=== PATIENT | female | born 1955 | race Caucasian/White ===

== ENCOUNTER 2018-03-15 03:26 | Outpatient (CLI) | payer MEDICARE, SELFPAY ==
[2018-03-15 12:57] LABS: ALT 59 U/L (12-78); AST 38 U/L (15-37); Albumin 3.8 g/dL (3.4-5.0); Alkaline Phosphatase 84 U/L (46-116); Anion Gap 7.8 mmol/L (3-11); BUN 16 mg/dL (7-18); Bilirubin, Total 0.4 mg/dL (0.2-1.0); CO2 30.2 mmol/L (21.0-32.0); CREATININE 0.73 mg/dL (0.55-1.02); Calcium 8.4 mg/dL (8.5-10.1); Chloride 105 mmol/L (98-107); Cholesterol 160 mg/dL (50-200); Glucose 105 mg/dL (70-100); HDL Cholesterol 60 mg/dL (40-60); LDL CHOLESTEROL 88 mg/dL (<100); Magnesium 1.9 mg/dL (1.8-2.4); Potassium 4.2 mmol/L (3.5-5.1); Sodium 143 mmol/L (136-145); Total Protein 6.9 g/dL (6.4-8.2); Triglyceride 114 mg/dL (30-150)
== END 2018-03-15 03:46 ==
PROVIDERS: PCP Family Medicine; Visit Provider Family Medicine
DX: E78.5 Hyperlipidemia, unspecified (principal); E83.42 Hypomagnesemia
CPT/HCPCS: 36415; 80053; 80061; 83721; 83735

== ENCOUNTER 2018-03-23 01:16 | Outpatient (CLI) | payer MEDICARE, SELFPAY ==
--- NOTE | 2018-03-23 14:01 | MERGE_ITS ---
*[facility]* *[facility]* [address] [place] [address] Date of study: 03/23/2018 Transthoracic Echocardiography M-mode, complete 2D, complete spectral Doppler, and color Doppler *STUDY CONCLUSIONS* Summary: 1. Left ventricle: The cavity size was normal. Systolic function was hyperdynamic. The estimated ejection fraction was 65-70%. There was no evidence of elevated ventricular filling pressure by Doppler parameters. 2. Mitral valve: There was mild regurgitation. 3. Right ventricle: The cavity size was normal. Wall thickness was normal. Systolic function was normal. 4. Atrial septum: No defect or patent foramen ovale was identified. 5. Pulmonary arteries: Pulmonary systolic pressure was >= 15mm Hg. 6. Inferior vena cava: Poorly visualized. *PATIENT PRESENTATION* Height: 162.6cm ((64in) ) S/D Pressure: 129 / 76 Weight: 90.3kg ((198.6lb) ) BSA: 2.06m^2 Test start time: 02:05 PM. Test stop time: 03:00 PM. PERFORMING Unknown ORDERING Aurora Mcrae REFERRING Aurora Mcrae PERFORMING [facility] [employer] INST[employer]ER Yara Gardner *PROCEDURE DATA* Procedure information: This study was interpreted by [facility]. Pertinent images and digital data are archived for permanent storage and are available for subsequent review. No prior study was available for comparison. Study status: Routine. Transthoracic echocardiography. M-mode, complete 2D, complete spectral Doppler, and color Doppler. A Transthoracic Echocardiogram was performed. Scanning was performed from the parasternal, apical, subcostal, and suprasternal notch acoustic windows. Images were obtained using an [employer] 2000 cardiac ultrasound machine. Image quality was adequate. Study completion: The patient tolerated the procedure well. History: PMH: Hypertension,Murmur. *CARDIAC ANATOMY* Left ventricle: The cavity size was normal. Systolic function was hyperdynamic. The estimated ejection fraction was 65-70%. Diastolic parameters were normal for age. There was no evidence of elevated ventricular filling pressure by Doppler parameters. Aortic valve: Doppler: There was no stenosis. There was no regurgitation. VTI ratio of LVOT to aortic valve: 0.64. Valve area (VTI): 2.3cm^2. Indexed valve area (VTI): 1.1cm^2/m^2. Peak velocity ratio of LVOT to aortic valve: 0.54. Valve area (Vmax): 2cm^2. Indexed valve area (Vmax): 1cm^2/m^2. Mean velocity ratio of LVOT to aortic valve: 0.49. Valve area (Vmean): 1.8cm^2. Indexed valve area (Vmean): 0.9cm^2/m^2. Mean gradient (S): 8mm Hg. Peak gradient (S): 13.9mm Hg. Aorta: Aortic root: The aortic root was normal in size. Ascending aorta: The ascending aorta was mildly dilated. Mitral valve: Doppler: There was no evidence for stenosis. There was mild regurgitation. Valve area by pressure half-time: 4cm^2. Indexed valve area by pressure half-time: 1.9cm^2/m^2. Peak gradient (D): 2.7mm Hg. Left atrium: The atrium was normal in size. Atrial septum: No defect or patent foramen ovale was identified. Right ventricle: The cavity size was normal. Wall thickness was normal. Systolic function was normal. Pulmonic valve: Doppler: There was no evidence for stenosis. There was no significant regurgitation. Peak gradient (S): 3.3mm Hg. Tricuspid valve: Doppler: There was mild regurgitation. Pulmonary artery: Poorly visualized. Pulmonary systolic pressure was >= 15mm Hg. Right atrium: The atrium was normal in size. Pericardium: There was no pericardial effusion. Systemic veins: Inferior vena cava: Poorly visualized. Measurements Left ventricle Value Reference LV ID, ED, PLAX 4.1 cm 3.5 - 6.0 LV ID, ES, PLAX 2.7 cm 2.1 - 4.0 LV PW thickness, ED, PLAX 1.0 cm LV end-diastolic volume, 1-p A2C 63 ml LV ejection fraction, 1-p A2C 52 % LV end-diastolic volume, 1-p A4C 67 ml LV ejection fraction, 1-p A4C 60 % LV e', lateral 0.075 m/sec LV E/e', lateral 11 LV e', medial 0.05 m/sec LV E/e', medial 17 LV e', average 0.062 m/sec LV E/e', average 13 Ventricular septum Value Reference IVS thickness, ED, PLAX 1.0 cm LVOT Value Reference LVOT ID, A-P 2.1 cm LVOT area 3.6 cm^2 LVOT peak velocity, S 1.01 m/sec LVOT mean velocity, S 0.66 m/sec LVOT VTI, S 23.7 cm LVOT peak gradient, S 4.1 mm Hg LVOT mean gradient, S 2 mm Hg Stroke volume (SV), LVOT DP 86 ml Stroke index (SV/bsa), LVOT DP 42 ml/m^2 Aortic valve Value Reference Aortic valve peak velocity, S 1.9 m/sec Aortic valve mean velocity, S 1.33 m/sec Aortic valve VTI, S 37.0 cm Aortic mean gradient, S 8 mm Hg Aortic peak gradient, S 13.9 mm Hg VTI ratio, LVOT/AV 0.64 Aortic valve area, VTI 2.3 cm^2 Velocity ratio, peak, LVOT/AV 0.54 Aortic valve area, peak velocity 2 cm^2 Velocity ratio, mean, LVOT/AV 0.49 Aortic valve area, mean velocity 1.8 cm^2 Aortic valve area/bsa, mean velocity 0.9 cm^2/m^2 Aorta Value Reference Aortic root ID, ED 2.6 cm Ascending aorta ID, A-P, S 3.6 cm Left atrium Value Reference LA ID, A-P, ES 3.7 cm LA ID/bsa, A-P 1.8 cm/m^2 <=2.2 LA area, ES, A4C 17.4 cm^2 8.8 - 23.4 LA area, ES, A2C 16 cm^2 LA volume/bsa, S 26 ml/m^2 LA volume, ES, 2-p 49 ml LA volume/bsa, ES, 2-p 24 ml/m^2 LA/aortic root ratio 1.41 Mitral valve Value Reference Mitral E-wave peak velocity 0.82 m/sec Mitral A-wave peak velocity 0.87 m/sec Mitral deceleration time 191 ms 150 - 230 Mitral pressure half-time 55 ms Mitral peak gradient, D 2.7 mm Hg Mitral E/A ratio, peak 0.95 Mitral valve area, PHT, DP 4 cm^2 Tricuspid valve Value Reference Tricuspid regurg peak velocity 2.1 m/sec Tricuspid peak RV-RA gradient 17.9 mm Hg Right atrium Value Reference RA area, ES, A4C 17.5 cm^2 8.3 - 19.5 Pulmonic valve Value Reference Pulmonic peak gradient, S 3.3 mm Hg Legend: (L) and (H) ela values outside specified reference range. I have personally reviewed the images and have reviewed and edited the reported findings. Electronically signed by Rodney Brown MD 03/23/2018 16:55
== END 2018-03-23 01:36 ==
PROVIDERS: PCP Family Medicine; Visit Provider Family Medicine
DX: I10 Essential (primary) hypertension (principal); R01.1 Cardiac murmur, unspecified; I34.0 Nonrheumatic mitral (valve) insufficiency
CPT/HCPCS: 93306

== ENCOUNTER 2018-06-02 07:55 | Outpatient (CLI) | payer MEDICARE, SELFPAY ==
--- NOTE | 2018-06-02 12:58 | DI.MAMMO_ITS ---
SYMPTOM/DIAGNOSIS: SCREENING,Z12.31 MAMMOGRAMS: Mammograms were interpreted according to the usual protocol including computer analysis with CAD system, tomosynthesis and C view imaging. Comparison is made with prior examinations. Breast density, category B. No suspicious masses or microcalcifications are seen. There is no definite evidence of malignancy. IMPRESSION: Negative mammogram. Routine screening is recommended. Category 1. MQSA ASSESSMENT OF FINDINGS: Negative. Category 1. Patient will receive a letter notifying them of these results. BI-RADS category B. There are scattered areas of fibroglandular density.
== END 2018-06-02 08:15 ==
PROVIDERS: PCP Family Medicine; Visit Provider Family Medicine
DX: Z12.31 Encounter for screening mammogram for malignant neoplasm of breast (principal)
CPT/HCPCS: 77063; 77067

== ENCOUNTER → 2018-09-11 08:26 | Outpatient (BNVA) | payer MEDICARE, SELFPAY | PROVIDERS: PCP Family Medicine; Visit Provider Nurse Practitioner Adult Health | DX: G31.84 Mild cognitive impairment of uncertain or unknown etiology (principal); I10 Essential (primary) hypertension | CPT/HCPCS: 99204; 99215 ==

== ENCOUNTER 2018-09-14 00:37 | Outpatient (CLI) | payer MEDICARE, SELFPAY ==
--- NOTE | 2018-09-14 09:48 | DI.MRI_ITS ---
SYMPTOMS/DIAGNOSIS: MEMORY PROBLEMS, R41.3, OTHER AMNESIA BRAIN MRI: Sagittal T 2, axial T 2, axial diffusion weighted axial FLAIR and axial GRE and axial T 1 pulse sequences were performed. There are small regions of increased signal in the frontoparietal white matter bilaterally. The findings are consistent with small vessel disease. There is no evidence of a hemorrhage or mass or fluid collection. There is no evidence of a region or regions of restricted diffusion. The normal flow void is noted in the cerebral vessels. SUMMARY: There are findings consistent with small vessel disease. No hemorrhage or mass or evidence of an infarct is demonstrated.
[2018-09-14 12:43] LABS: Vitamin B12 1033 pg/mL (193-986)
== END 2018-09-14 00:57 ==
PROVIDERS: PCP Family Medicine; Visit Provider Nurse Practitioner Adult Health
DX: R41.3 Other amnesia (principal); I67.9 Cerebrovascular disease, unspecified
CPT/HCPCS: 36415; 70551; 82607; 84443

== ENCOUNTER → 2018-11-13 12:37 | Outpatient (BNVA) | payer MEDICARE, SELFPAY | PROVIDERS: PCP Family Medicine; Visit Provider Nurse Practitioner Adult Health | DX: G31.84 Mild cognitive impairment of uncertain or unknown etiology (principal); I10 Essential (primary) hypertension | CPT/HCPCS: 99212; 99213 ==

== ENCOUNTER 2019-03-22 02:25 | Outpatient (CLI) | payer MEDICARE, SELFPAY ==
[2019-03-22 15:08] LABS: ALT 107 U/L (14-59); AST 98 U/L (15-37); Alkaline Phosphatase 103 U/L (46-116); Anion Gap 9.9 mmol/L (3-11); BUN 16 mg/dL (7-18); Bilirubin, Total 0.4 mg/dL (0.2-1.0); CO2 27.1 mmol/L (21.0-32.0); CREATININE 0.71 mg/dL (0.55-1.02); Calcium 9.3 mg/dL (8.5-10.1); Calculated LDL 91 mg/dL; Chloride 105 mmol/L (98-107); Cholesterol 174 mg/dL (50-200); Glucose 122 mg/dL (70-100); HDL Cholesterol 64 mg/dL (40-60); Magnesium 1.8 mg/dL (1.8-2.4); Potassium 4.2 mmol/L (3.5-5.1); Sodium 142 mmol/L (136-145); Total Protein 7.4 g/dL (6.4-8.2); Triglyceride 96 mg/dL (30-150)
== END 2019-03-22 02:45 ==
PROVIDERS: PCP Family Medicine; Visit Provider Family Medicine
DX: E78.5 Hyperlipidemia, unspecified (principal); I10 Essential (primary) hypertension; E83.42 Hypomagnesemia
CPT/HCPCS: 36415; 80053; 80061; 83735

== ENCOUNTER 2019-04-09 00:54 | Outpatient (CLI) | payer MEDICARE, SELFPAY ==
--- NOTE | 2019-04-09 07:10 | DI.US_ITS ---
EXAM: US ABDOMEN CLINICAL HISTORY: hepatic steatosis, malaise, higher transaminasis. TECHNIQUE: Ultrasound performed using standard protocol. COMPARISON: Cardiac from 03/23/2018 FINDINGS: Hepatic parenchyma is mildly echogenic with decreased through transmission consistent with hepatic st eatosis. There are multiple gallstones. No biliary dilatation, no gallbladder wall thickening or pe richolecystic fluid collection. Question lower pole right renal calculus, nonobstructing. Left kidn ey unremarkable in appearance. Abdominal aorta is of normal diameter. Pancreas grossly unremarkable . Spleen unremarkable. IMPRESSION: Cholelithiasis. Nonobstructing left renal lower pole calculus. Hepatic steatosis.
--- NOTE | 2019-04-09 07:10 | DI.RAD_ITS ---
EXAM: XR KNEE RT 3V AP,LAT,FITO INDICATION: RIGHT KNEE PAIN,[id number]. COMPARISON: No exams were available for comparison TECHNIQUE: 2D digital imaging was performed. FINDINGS: Three views were obtained. There is narrowing of the medial tibiofemoral cartilaginous joint space. Minimal marginal osteophyte formation noted at the joints of the knee. 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
== END 2019-04-09 01:14 ==
PROVIDERS: PCP Family Medicine; Visit Provider Family Medicine
DX: M25.561 Pain in right knee (principal); M17.11 Unilateral primary osteoarthritis, right knee; K76.0 Fatty (change of) liver, not elsewhere classified; R53.81 Other malaise; K80.20 Calculus of gallbladder without cholecystitis without obstruction; N20.0 Calculus of kidney; R74.0 Nonspecific elevation of levels of transaminase and lactic acid dehydrogenase [LDH]
CPT/HCPCS: 73562; 76700

== ENCOUNTER → 2019-05-14 09:25 | Outpatient (BNVA) | payer MEDICARE, SELFPAY | PROVIDERS: PCP Family Medicine; Referring Provider Family Medicine; Visit Provider Nurse Practitioner Adult Health | DX: G31.84 Mild cognitive impairment of uncertain or unknown etiology (principal); I10 Essential (primary) hypertension | CPT/HCPCS: 99213 ==

== ENCOUNTER → 2019-05-18 08:39 | Outpatient (BNVA) | payer MEDICARE, SELFPAY | PROVIDERS: PCP Family Medicine; Referring Provider Family Medicine; Visit Provider Student in an Organized Health Care Education/Training Program | DX: M17.11 Unilateral primary osteoarthritis, right knee (principal) | CPT/HCPCS: 20610; 99203; 99214; J1040 ==

== ENCOUNTER 2019-06-05 01:13 | Outpatient (CLI) | payer MEDICARE, SELFPAY ==
--- NOTE | 2019-06-05 11:34 | DI.MAMMO_ITS ---
EXAM: MAMMO SCREENING CLINICAL HISTORY: screening Z12.39 TECHNIQUE: Mammograms were interpreted according to the usual protocol including computer analysis w [employer] CAD system, tomosynthesis and C-view imaging. COMPARISON: [id number] FINDINGS: The breasts are composed of scattered areas of fibroglandular density, breast density category B. Th ere are no suspicious masses or suspicious microcalcifications. There has been no significant interva l change when compared with the prior examinations. IMPRESSION: Category 1, breast density category B.
== END 2019-06-05 01:33 ==
PROVIDERS: PCP Family Medicine; Visit Provider Family Medicine
DX: Z12.31 Encounter for screening mammogram for malignant neoplasm of breast (principal)
CPT/HCPCS: 77063; 77067

== ENCOUNTER → 2019-07-23 13:39 | Outpatient (BNVA) | payer MEDICARE, SELFPAY | PROVIDERS: PCP Family Medicine; Referring Provider Family Medicine; Visit Provider Student in an Organized Health Care Education/Training Program | DX: M17.11 Unilateral primary osteoarthritis, right knee (principal) | CPT/HCPCS: 99213 ==

== ENCOUNTER 2019-07-30 01:40 | Outpatient (CLI) | payer MEDICARE, SELFPAY ==
--- NOTE | 2019-07-30 10:41 | DI.MRI_ITS ---
EXAM: MR LOWER JOINT RT WO CLINICAL HISTORY: PAIN, LOCALIZED OSTEOARTHRITIS OF RT KNEE, M17.11. TECHNIQUE: Multiplanar multisequence MRI was performed. COMPARISON: No exams were available for comparison FINDINGS: Menisci: Lateral meniscus is unremarkable. There is increased signal and decreased size in the body of the medial meniscus. There is increased signal seen in the anterior horn of the medial meniscus. Findings are suspicious for tear and degeneration. Ligaments: The anterior and posterior cruciate ligaments are intact. The lateral collateral ligament is intact. There is increased signal seen around the medial meniscus consistent with a sprain. Extensor mechanism: Intact. The medial and lateral retinaculum are unremarkable. Articular cartilage: There is thinning of the articular cartilage in the medial femoral tibial joint and the patellofemoral joint. Bones: No evidence of an occult fracture or avascular necrosis. Joint: There is a moderate joint effusion. Soft tissues: There is edema seen in the soft tissues around the knee. No evidence of a popliteal cy st. IMPRESSION: 1. Tear involving the anterior horn and body of the medial meniscus. Degenerative changes also seen to be present. 2. MCL sprain. 3. Moderate joint effusion and subcutaneous edema. 4. Degenerative changes in the knee.
[2019-07-30 11:33] LABS: Hemoglobin A1C 5.6 % (3.8-5.6)
[2019-07-30 12:44] LABS: Glucose 103 mg/dL (74-106)
== END 2019-07-30 02:00 ==
PROVIDERS: PCP Family Medicine; Visit Provider Family Medicine
DX: M25.561 Pain in right knee (principal); M25.461 Effusion, right knee; S83.411A Sprain of medial collateral ligament of right knee, initial encounter; S83.241A Other tear of medial meniscus, current injury, right knee, initial encounter; M17.11 Unilateral primary osteoarthritis, right knee; M79.7 Fibromyalgia; E11.65 Type 2 diabetes mellitus with hyperglycemia
CPT/HCPCS: 36415; 73721; 82947; 83036

== ENCOUNTER 2019-08-14 16:05 | Outpatient (CLI) | payer MEDICARE, SELFPAY ==
--- NOTE | 2019-08-14 10:30 | DI.RAD_ITS ---
EXAM: XR STANDING ALIGNMENT AND XR KNEE RIGHT 1 V INDICATION: PREOPERATIVE PLANNING. COMPARISON: XR KNEE RT 1V from 08/14/2019 TECHNIQUE: 2D digital imaging was performed. FINDINGS: There is mild to moderate narrowing of the medial joint spaces of both knees. There is normal alignm ent of the patella on the [employer] view. The right lower extremity measures 85.7 cm. The left lower extremity measures 86.4 cm.
== END 2019-08-14 16:25 ==
PROVIDERS: PCP Family Medicine; Referring Provider Family Medicine; Visit Provider Student in an Organized Health Care Education/Training Program
DX: M21.70 Unequal limb length (acquired), unspecified site; M17.11 Unilateral primary osteoarthritis, right knee
CPT/HCPCS: 99214; 73560; 77073

== ENCOUNTER → 2019-08-28 09:29 | Outpatient (BNVA) | payer MEDICARE, SELFPAY | PROVIDERS: PCP Family Medicine; Referring Provider Family Medicine; Visit Provider Student in an Organized Health Care Education/Training Program | DX: M17.11 Unilateral primary osteoarthritis, right knee (principal) | CPT/HCPCS: 99215 ==

== ENCOUNTER 2019-10-26 12:25 | Emergency (ER) | payer MEDICARE, SELFPAY ==
[2019-10-26] VITALS (26 sets, daily range): BP systolic 130–145; BP diastolic 63–85; PULSE 66–76; RESP 15–24; TEMP 36.9; O2SAT 89–95
--- NOTE | 2019-10-26 12:43 | W.ED.GENAD ---
Discharge Plan Disposition Patient Disposition: HOME Condition: Stable Discharge Details Chief Complaint: CVA/TIA Clinical Impression: Hicks's palsy Primary Care Provider: Aurora Mcrae ED Provider: Lubna Mosqueda Home Meds and New Rx's Prescriptions: New prednisone 20 mg tablet See Rx Instructions .ROUTE .COMPLEX Qty: 18 RF: 0 valacyclovir 1 gram tablet 1,000 mg PO TID 10 Days Qty: 30 RF: 0 Continued omega-3 fatty acids-fish oil [Fish Oil] 300-1,000 mg capsule 1 cap PO BID RF: 0 Benefiber Healthy Shape 5 gram/7.4 gram powder See Rx Instructions PO .COMPLEX RF: 0 boron citrate 3 mg tablet 3 mg PO DAILY RF: 0 acetylcysteine [NAC] 600 mg capsule 1,200 mg PO BID RF: 0 bupropion HCl 300 mg tablet extended release 24 hr 300 mg PO QAM Qty: 30 RF: 3 tramadol 50 mg tablet 50 mg PO BID PRN (Reason: pain) Qty: 20 RF: 0 magnesium oxide 500 mg capsule 1,000 mg PO DAILY Qty: 90 RF: 6 levomefolate calcium [L-Methylfolate] 15 mg tablet 15 mg PO DAILY RF: 0 pregabalin 150 mg capsule 150 mg PO TID Qty: 90 RF: 2 calcium carbonate-vitamin D3 1 EACH tablet 1 tab PO BID RF: 0 aspirin [Ecotrin Low Strength] 81 MG tablet,delayed release (DR/EC) 81 mg PO DAILY RF: 0 cyanocobalamin (vitamin B-12) [Vitamin B-12] 500 MCG tablet 1 tab PO DAILY RF: 0 ascorbic acid (vitamin C) 500 MG tablet 1 tab PO DAILY RF: 0 Multi Complete with Iron 1 EACH tablet 1 tab PO DAILY RF: 0 docusate sodium [Colace] 100 MG capsule 100 mg PO HS RF: 0 loratadine 10 MG tablet 10 mg PO DAILY Qty: 90 RF: 4 triamcinolone acetonide 30 GM ointment 30 gm Topical bid prn Qty: 30 RF: 1 nystatin 60 GM powder 1 bubba Topical BID prn Qty: 60 RF: 11 omeprazole 40 mg capsule,delayed release(DR/EC) 40 mg PO DAILY Qty: 90 RF: 4 propranolol 10 mg tablet 10 mg PO BID Qty: 180 RF: 4 pravastatin 20 mg tablet 20 mg PO DAILY Qty: 90 RF: 4 venlafaxine 75 mg capsule,extended release 24hr 225 mg PO DAILY Qty: 270 RF: 3 risperidone 3 mg tablet 3 mg PO HS Qty: 90 RF: 4 buspirone 30 mg tablet 30 mg PO BID Qty: 180 RF: 4 sucralfate 1 gram tablet 1 g PO BID Qty: 60 RF: 5 celecoxib [Celebrex] 200 mg capsule 200 mg PO BID Qty: 60 RF: 6 dextroamphetamine 10 mg capsule, extended release 10 mg PO DAILY MDD 10 mg Qty: 90 RF: 0 clonazepam 0.5 mg tablet 0.25 mg PO BID PRN (Reason: josué) Qty: 30 RF: 0 Discharge Instructions Instructions: Hicks Palsy (ED) Additional Instructions: Take the steroids and antivirals until finished. Call your primary care doctor's office today or Tuesday to schedule follow-up appointment for reevaluation and for results of your tick and Lyme panel which was drawn today in addition to referral for outpatient sleep study due to your low oxygen level noted today. Your oxygen seemed to decrease when sleeping and increase when up and awake and walking which could be indicative of sleep apnea. Return to the emergency department if you develop any worsening or new concerning symptoms. Discharge Data Discharge Date/Time-TO BE ENTERED AT DEPARTURE: 10/26/19 16:50 Discharge Physician: Lubna Mosqueda Medical Decision Making 1235 -- 64-year-old female with a history of fibromyalgia, GERD, hypertension, hyperlipidemia presents for right-sided facial weakness since 5 PM last night. She has right-sided facial drooping including right forehead. No other focal deficits. Differential diagnosis includes acute CVA, Hicks's palsy, electrolyte abnormality, etc., will send for stat CT head, CTA, screening labs. Will check a tick and Lyme panel. EKG notes a rate of 75, sinus with no acute ST ischemic changes. 1255 --stat CT head negative. CTA head and neck negative. Labs reviewed and unremarkable. Chest x-ray negative. Patient reassessed and she still has right-sided facial paralysis including right forehead. She has no other focal deficits. She has no other acute complaints. She was noted at times while in the ED to have an O2 sat ranging between 89-91 while asleep which increases to 95-96 while awake and talking. A d-dimer was obtained and negative. She had no complaint of chest pain or shortness of breath. She ambulated around the ED with an O2 sat of 95% and no acute complaints. Case was discussed with neurology Dr. Guardado and agrees that presentation does sound similar to Hicks's Palsy and recommends prednisone and antivirals. Patient was given 1 dose of each here as well as prescriptions. She was advised to follow-up with her primary care doctor for further evaluation and for referral for results of tick and Lyme panel and to schedule an outpatient sleep study. Medical Records Medical records reviewed: Yes I reviewed the patient's medical records. Imaging Data Radiologic Study: Radiologist's impression: CT BRAIN AND NECK CTA CLINICAL HISTORY: R facial paralysis, r/o acute cva. TECHNIQUE: Imaging Protocol: Axial CT angiography was performed with multi-slice acquisition and multi-planar and/or 3D reconstructions. CONTRAST MATERIAL: Intravenous: Omnipaque 350 Contrast volume:85 mL COMPARISON: ABD PELVIS WITH CONTRAST from 07/19/2012 FINDINGS: CT Head W/O: Ventricles and Extra axial spaces: Normal in size and morphology for the patient's age. Hemorrhage: None. Cerebral parenchyma: There appear to be subtle areas of decreased attenuation in the white matter consistent with small vessel ischemic disease. Midline shift: None. Brainstem/Cerebellum: Normal. Calvarium: Normal. Visualized Paranasal sinuses/Mastoids: Clear. Soft Tissues: Unremarkable. CTA Brain W: Internal Carotid Arteries: Petrous: Normal. Cavernous: Normal. Cerebral: Normal. Middle Cerebral Arteries: Right: No aneurysm, occlusion or significant stenosis. Left: No aneurysm, occlusion or significant stenosis. Anterior Cerebral Arteries: Right: No aneurysm, occlusion or significant stenosis. Left: No aneurysm, occlusion or significant stenosis. Posterior cerebral Arteries: Right: No aneurysm, occlusion or significant stenosis. Left: No aneurysm, occlusion or significant stenosis. Vertebral Arteries: Right: No aneurysm, occlusion or significant stenosis. Left: No aneurysm, occlusion or significant stenosis. Basilar Artery: No aneurysm, occlusion or significant stenosis. CTA Neck W: Common Carotid: Right: No aneurysm, occlusion or significant stenosis. Left: No aneurysm, occlusion or significant stenosis. External Carotid: Right: No aneurysm, occlusion or significant stenosis. Left: No aneurysm, occlusion or significant stenosis. Internal Carotid: Right: No aneurysm, occlusion or significant stenosis. Left: No aneurysm, occlusion or significant stenosis. Vertebral Artery: Right: No aneurysm, occlusion or significant stenosis. Left: No aneurysm, occlusion or significant stenosis. Lung Apices: No focal consolidating infiltrates. Bones: Degenerative changes. Soft Tissues: Normal. IMPRESSION: 1. Normal CTA examination of the [place]. 2. No acute intracranial process. 3. Normal CTA examination of the neck. 4. The findings were discussed with the Emergency Department on the date of the examination. Lab Data Lab results reviewed: Yes I reviewed the patient's lab results. Labs: Laboratory Tests Range/Units 10/26/19 10/26/19 10/26/19 12:38 12:38 12:38 WBC (4.4-10.8) k/cumm 6.09 RBC (4.00-5.20) m/cumm 4.86 Hgb (12.0-15.5) g/dL 14.0 Hct (36.0-46.0) % 42.8 MCV (80-95) fL 88.1 MCH (27.0-33.0) pg 28.8 MCHC (32.0-36.0) g/dL 32.7 RDW (11.7-14.6) % 13.6 Plt Count (130-400) x1000/uL 197 MPV (8.0-11.0) fL 10.2 Immature Gran % % 0.2 Neutrophils % 70.7 Lymphocytes % 20.5 Monocytes % 7.6 Eosinophils % 0.8 Basophils % 0.2 Absolute Neutrophils (1.2-6.7) k/cumm 4.31 Absolute Lymphocytes (1.2-3.4) k/cumm 1.25 Absolute Monocytes (0.11-0.7) k/cumm 0.46 Absolute Eosinophils (0.0-0.7) k/cumm 0.05 Absolute Basophils (0.0-0.2) k/cumm 0.01 PT (9.3-11.0) sec 11.3 H INR (0.9-1.1) 1.1 APTT (21.0-31.4) sec 27.9 Sodium (136-145) mmol/L 139 Potassium (3.5-5.1) mmol/L 4.1 Chloride (98-107) mmol/L 102 Carbon Dioxide (21.0-32.0) mmol/L 29.2 Anion Gap (3-11) mmol/L 7.8 BUN (7-18) mg/dL 18 Creatinine (0.55-1.02) mg/dL 0.77 Estimated GFR/1.73 m2 (mL/min/1.73m2) >= 60.00 Glucose (74-106) mg/dL 104 Calcium (8.5-10.1) mg/dL 9.2 Magnesium (1.8-2.4) mg/dL 2.0 Total Bilirubin (0.2-1.0) mg/dL 0.6 AST (15-37) U/L 37 ALT (14-59) U/L 52 Alkaline Phosphatase (46-116) U/L 91 Troponin I (<0.06) ng/Ml < 0.05 Total Protein (6.4-8.2) g/dL 7.8 Albumin (3.4-5.0) g/dL 4.1 ECG Data Attestation: I personally reviewed and interpreted this ECG (s) as follows: Interpretation: Rate of 75, sinus, no acute st elevation or depression. GA 176. QTc 430. QRS 100. HPI General Mode of arrival: ambulatory. Date/Time Provider Initiated Documentation: 10/26/19 12:25. Limitations to Documentation: no limitations. Information obtained by: patient. HPI Narrative: Patient is a 64-year-old female with a history of anxiety, depression, fibromyalgia, GERD, hypertension and multiple personality disorder who presents for right-sided facial weakness since 5 PM last night. Patient states symptoms started in her right eye with eyelid drooping and tearing. She then developed right facial weakness. She states she has chronic headaches for years and states she has had intermittent headaches over the last month. States her headache is on the top of her head and is currently 2/10. She denies any visual changes, dizziness, chest pain, shortness of breath, extremity weakness or numbness. She denies any fever, cough, recent travel or exposure to COVID. Related Data Home Medications Medication Instructions Recorded Confirmed Multi Complete with Iron 1 tab PO DAILY tab-cap 09/03/12 10/26/19 ascorbic acid (vitamin C) 1 tab PO DAILY 09/03/12 10/26/19 aspirin [Ecotrin Low Strength] 81 mg PO DAILY tab-cap 09/03/12 10/26/19 calcium carbonate-vitamin D3 1 tab PO BID 09/03/12 10/26/19 cyanocobalamin (vitamin B-12) 1 tab PO DAILY 09/03/12 10/26/19 [Vitamin B-12] docusate sodium [Colace] 100 mg PO HS tab-cap 10/19/12 10/26/19 loratadine 10 mg PO DAILY #90 tab-cap 12/02/12 10/26/19 triamcinolone acetonide 30 gm TOPICAL bid prn #30 gm 05/17/14 10/26/19 nystatin 1 bubba TOPICAL BID prn #60 gm 09/21/14 10/26/19 omega-3 fatty acids-fish oil 300 1 cap PO BID 03/22/18 10/26/19 mg-1,000 mg capsule wheat dextrin 5 gram/7.4 gram oral See Rx Instructions PO .COMPLEX gm 07/13/18 10/26/19 powder omeprazole 40 mg capsule,delayed 40 mg PO DAILY #90 tab-cap 01/30/19 10/26/19 release propranolol 10 mg tablet 10 mg PO BID #180 tab-cap 03/15/19 10/26/19 levomefolate calcium 15 mg tablet 15 mg PO DAILY 04/05/19 08/28/19 pravastatin 20 mg tablet 20 mg PO DAILY #90 tab-cap 04/26/19 10/26/19 venlafaxine 75 mg capsule,extended 225 mg PO DAILY #270 tab-cap 05/07/19 10/26/19 release 24 hr acetylcysteine 600 mg capsule 1,200 mg PO BID cap 05/14/19 10/26/19 boron citrate 3 mg tablet 3 mg PO DAILY tab 05/14/19 08/28/19 risperidone 3 mg tablet 3 mg PO HS #90 tab-cap 05/21/19 10/26/19 buspirone 30 mg tablet 30 mg PO BID #180 tab 05/28/19 10/26/19 sucralfate 1 gram tablet 1 g PO BID #60 tab-cap 05/31/19 10/26/19 celecoxib 200 mg capsule 200 mg PO BID #60 cap 07/24/19 10/26/19 pregabalin 150 mg capsule 150 mg PO TID #90 cap 08/09/19 10/26/19 dextroamphetamine 10 mg 10 mg PO DAILY #90 cap MDD 10 mg 10/11/19 10/26/19 capsule,extended release bupropion HCl 300 mg 24 hr tablet, 300 mg PO QAM #30 tab 10/17/19 10/26/19 extended release magnesium oxide 500 mg capsule 1,000 mg PO DAILY #90 cap 10/17/19 10/26/19 tramadol 50 mg tablet 50 mg PO BID PRN #20 tab 10/17/19 10/26/19 clonazepam 0.5 mg tablet 0.25 mg PO BID PRN #30 tab 10/19/19 10/26/19 prednisone See Rx Instructions .ROUTE 10/26/19 .COMPLEX #18 tab valacyclovir 1,000 mg PO TID 10 Days #30 tab 10/26/19 Previous Rx's Medication Instructions Recorded omeprazole 40 mg capsule,delayed 40 mg PO DAILY #90 tab-cap 01/30/19 release propranolol 10 mg tablet 10 mg PO BID #180 tab-cap 03/15/19 pravastatin 20 mg tablet 20 mg PO DAILY #90 tab-cap 04/26/19 venlafaxine 75 mg capsule,extended 225 mg PO DAILY #270 tab-cap 05/07/19 release 24 hr risperidone 3 mg tablet 3 mg PO HS #90 tab-cap 05/21/19 buspirone 30 mg tablet 30 mg PO BID #180 tab 05/28/19 sucralfate 1 gram tablet 1 g PO BID #60 tab-cap 05/31/19 celecoxib 200 mg capsule 200 mg PO BID #60 cap 07/24/19 pregabalin 150 mg capsule 150 mg PO TID #90 cap 08/09/19 dextroamphetamine 10 mg 10 mg PO DAILY #90 cap MDD 10 mg 10/11/19 capsule,extended release bupropion HCl 300 mg 24 hr tablet, 300 mg PO QAM #30 tab 10/17/19 extended release magnesium oxide 500 mg capsule 1,000 mg PO DAILY #90 cap 10/17/19 tramadol 50 mg tablet 50 mg PO BID PRN #20 tab 10/17/19 clonazepam 0.5 mg tablet 0.25 mg PO BID PRN #30 tab 10/19/19 prednisone See Rx Instructions .ROUTE 10/26/19 .COMPLEX #18 tab valacyclovir 1,000 mg PO TID 10 Days #30 tab 10/26/19 Allergies Allergy/AdvReac Type Severity Reaction Status Date / Time nabumetone Allergy Intermediate Verified 10/26/19 13:20 atorvastatin AdvReac Severe Exacerbated Verified 10/26/19 13:20 fibromyalgia pain oxycodone AdvReac Severe H/A Verified 10/26/19 13:20 FLUSHING General Stated Complaint: CVA/TIA ROSALIE: 2 Review of Systems All systems reviewed & are unremarkable except as noted in HPI and below Constitutional Constitutional: Reports as per HPI, Denies chills, Denies fever(s) and Reports headache(s) Eyes Eyes: Denies blurry vision ENT Ears, Nose, Mouth, and Throat: Denies dizziness, Reports headache(s), Denies sore throat and Denies throat swelling Cardiovascular Cardiovascular: Denies chest pain and Denies dyspnea Respiratory Respiratory: Denies cough and Denies dyspnea Gastrointestinal Gastrointestinal: Denies abdominal pain, Denies diarrhea and Denies vomiting Genitourinary Genitourinary: Denies hematuria and Denies dysuria Musculoskeletal Musculoskeletal: Denies back pain and Denies numbness Integumentary/Breasts Skin/Breast: Denies lesions and Denies rash Neurologic Neurologic: Denies dizziness, Reports headache(s), Reports localized weakness and Denies numbness Allergic/Immunologic Allergic/Immunologic: Denies throat swelling COUNTS INCLUDE 234 BEDS AT THE [facility] Social History Smoking/Tobacco Use Status: Never Alcohol Intake: never Drug use: Never Substance use type: does not use Caregiver/Support person: No Household members: spouse Housing: house Communication Needs: Corrective Lenses Do you need help understanding health information?: Rarely current occupation: HOUSEWIFE Pets and animals: Yes Pets and animals: dog(s) Sexually active: No Do you think of yourself as: straight/heterosexual Current gender identity: female What is your relationship status?: How often do you talk on the phone with friends or family?: twice per week How often do you get together with friends or relatives?: once per week How often do you attend worship or denominational services?: decline to answer Do you belong to any clubs or organized social groups?: no Panel score (0-1 are the most socially isolated patients): 2 What type of physical activity do you participate in: none Duration: 15-30 minutes/day Frequency: 3-4 times per week Steph/Quaker: Confucianist Special steph needs: No Seatbelt use: always Drive intox or ride w/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 Firearms in home: Yes Do you feel safe at home: Yes Do you feel safe in your relationship?: Yes Exam Const General: cooperative and no acute distress Orientation: alert, awake and oriented x3 HENMT Head: normal to inspection Ears: hearing grossly normal bilaterally, external ears normal and TM's normal bilaterally General nose exam: external nose normal Face and sinus: normal facial exam Mouth: oral mucosae normal Teeth and gingiva: dentition normal Throat: posterior oropharynx normal Eyes General: appearance normal, both eyes and all related structures Eyelids: eyelids normal Pupils: PERRL EOM: EOM intact bilaterally Neck Neck: normal visual inspection Lymphatic: no lymphadenopathy noted Chest Chest: normal inspection of the chest Resp Effort & Inspection: normal respiratory effort and able to speak in complete sentences Auscultation: clear to auscultation bilaterally Cardio Rate: regular rate Rhythm: regular rhythm GI Inspection: normal to inspection Palpation: soft, not firm, no guarding, no hepatosplenomegaly, no masses and nontender Auscultation: normal bowel sounds Skin General skin exam: no rashes or lesions noted Neuro General: patient alert and patient awake Cognition: normal cognition Speech: speech normal Gait: normal gait Motor: muscle tone normal throughout Sensory Exam: no sensory deficits noted Extrem General: normal to inspection, full ROM and capillary refill normal Psych Appearance: grossly normal Mental Status: mental status grossly normal Speech and Movement: speech and movement normal Affect: normal affect Thought Process: normal Course Vital Signs Vital signs: Vital Signs Temperature 98.4 F 10/26/19 12:31 Pulse 76 10/26/19 12:31 Respiratory Rate 18 10/26/19 12:31 Blood Pressure 138/63 10/26/19 12:31 Pulse Oximetry 92 L 10/26/19 12:31 Temperature 98.4 F 10/26/19 12:31 Temperature Source Temporal Artery Scan 10/26/19 12:31 Pulse 76 10/26/19 12:31 Respiratory Rate 18 10/26/19 12:31 Blood Pressure 138/63 10/26/19 12:31 Blood Pressure Position Supine 10/26/19 12:31 Pulse Oximetry 92 L 10/26/19 12:31 Oxygen Delivery Method Room Air 10/26/19 12:31 Oxygen Flow Rate 0 10/26/19 12:31 Pain Level 8 05/01/20 12:31 Critical Care Time Critical Care Time Critical Care Time: Yes Total Critical Care Time: 30 Attestation: I spent 30 minutes of critical care time with this patient. This does not include time spent on separately reported billable procedures.
--- NOTE | 2019-10-26 12:45 | DI.CT_ITS ---
EXAM: CT BRAIN AND NECK CTA CLINICAL HISTORY: R facial paralysis, r/o acute cva. TECHNIQUE: Imaging Protocol: Axial CT angiography was performed with multi-slice acquisition and mu lti-planar and/or 3D reconstructions. CONTRAST MATERIAL: Intravenous: Omnipaque 350 Contrast volume:85 mL COMPARISON: ABD PELVIS WITH CONTRAST from 07/19/2012 FINDINGS: CT Head W/O: Ventricles and Extra axial spaces: Normal in size and morphology for the patient's age. Hemorrhage: None. Cerebral parenchyma: There appear to be subtle areas of decreased attenuation in the white matter con sistent with small vessel ischemic disease. Midline shift: None. Brainstem/Cerebellum: Normal. Calvarium: Normal. Visualized Paranasal sinuses/Mastoids: Clear. Soft Tissues: Unremarkable. CTA Brain W: Internal Carotid Arteries: Petrous: Normal. Cavernous: Normal. Cerebral: Normal. Middle Cerebral Arteries: Right: No aneurysm, occlusion or significant stenosis. Left: No aneurysm, occlusion or significant stenosis. Anterior Cerebral Arteries: Right: No aneurysm, occlusion or significant stenosis. Left: No aneurysm, occlusion or significant stenosis. Posterior cerebral Arteries: Right: No aneurysm, occlusion or significant stenosis. Left: No aneurysm, occlusion or significant stenosis. Vertebral Arteries: Right: No aneurysm, occlusion or significant stenosis. Left: No aneurysm, occlusion or significant stenosis. Basilar Artery: No aneurysm, occlusion or significant stenosis. CTA Neck W: Common Carotid: Right: No aneurysm, occlusion or significant stenosis. Left: No aneurysm, occlusion or significant stenosis. External Carotid: Right: No aneurysm, occlusion or significant stenosis. Left: No aneurysm, occlusion or significant stenosis. Internal Carotid: Right: No aneurysm, occlusion or significant stenosis. Left: No aneurysm, occlusion or significant stenosis. Vertebral Artery: Right: No aneurysm, occlusion or significant stenosis. Left: No aneurysm, occlusion or significant stenosis. Lung Apices: No focal consolidating infiltrates. Bones: Degenerative changes. Soft Tissues: Normal. IMPRESSION: 1. Normal CTA examination of the [place]. 2. No acute intracranial process. 3. Normal CTA examination of the neck. 4. The findings were discussed with the Emergency Department on the date of the examination. RADIATION DOSE DELIVERED: Total DLP DATA REPOSITORY: All CT scans at this facility are submitted to the National Radiology Data Registry (NRDR) Dose Index Registry (DIR) with the [employer] (A[employer]). RADIATION OPTIMIZATION: All CT scans at this facility use at least one of these dose optimization te chniques: automated exposure control; mA and/or kV adjustment per patient size (includes targeted exa ms where dose is matched to clinical indication); or iterative reconstruction.
[2019-10-26 12:53] LABS: Abs Immature Grans 0.01 k/cumm (0.0-0.09); Absolute Basophil Count 0.01 k/cumm (0.0-0.2); Absolute Eosinophil Count 0.05 k/cumm (0.0-0.7); Absolute Lymphocyte Count 1.25 k/cumm (1.2-3.4); Absolute Monocyte Count 0.46 k/cumm (0.11-0.7); Absolute Neutrophil Count 4.31 k/cumm (1.2-6.7); Basophils % 0.2; Eosinophils % 0.8; HCT 42.8 % (36.0-46.0); Immature Grans % 0.2 %; Lymphocytes % 20.5; Mean Corp. HGB Concentration 32.7 g/dL (32.0-36.0); Mean Corpuscular Hemoglobin 28.8 pg (27.0-33.0); Mean Corpuscular Volume 88.1 fL (80-95); Mean Platelet Volume 10.2 fL (8.0-11.0); Monocytes % 7.6; Neutrophils % 70.7; Platelet Count 197 x1000/uL (130-400); RBC 4.86 m/cumm (4.00-5.20); RBC Distribution Width 13.6 % (11.7-14.6); White Blood Cell Count 6.09 k/cumm (4.4-10.8)
[2019-10-26 13:05] LABS: INR 1.1 (0.9-1.1); PTT Activated 27.9 sec (21.0-31.4); Prothrombin Time 11.3 sec (9.3-11.0)
[2019-10-26 13:07] LABS: ALT 52 U/L (14-59); AST 37 U/L (15-37); Albumin 4.1 g/dL (3.4-5.0); Alkaline Phosphatase 91 U/L (46-116); Anion Gap 7.8 mmol/L (3-11); BUN 18 mg/dL (7-18); Bilirubin, Total 0.6 mg/dL (0.2-1.0); CO2 29.2 mmol/L (21.0-32.0); CREATININE 0.77 mg/dL (0.55-1.02); Calcium 9.2 mg/dL (8.5-10.1); Chloride 102 mmol/L (98-107); Glucose 104 mg/dL (74-106); Potassium 4.1 mmol/L (3.5-5.1); Sodium 139 mmol/L (136-145); Total Protein 7.8 g/dL (6.4-8.2)
[2019-10-26 13:08] LABS: Troponin I < 0.05 ng/Ml (<0.06)
--- NOTE | 2019-10-26 14:25 | DI.RAD_ITS ---
EXAM: XR CHEST 2V PA LATERAL CLINICAL HISTORY: R facial paralysis, r/o cva TECHNIQUE: 2D digital imaging was performed. COMPARISON: RIGHT RIBS TO INCLUDE CXR from 12/18/2013 FINDINGS: MEDIASTINUM: Normal. HEART: Normal. PULMONARY VASCULATURE: Normal. LUNGS: Clear. PLEURAL SPACE: No pleural effusion or pneumothorax. BONE:Degenerative changes are present. There is also a stable S type scoliotic curvature of the thor acic spine. OTHER FINDINGS:Normal. IMPRESSION: No acute pulmonary findings. DATA REPOSITORY: RADIATION DOSE DELIVERED:
[2019-10-26] MEDS: Omnipaque 350 MG/ML 100 ML BTL IJ (14:36)
[2019-10-26] MEDS: Normal Saline - Diluent 50 ML VIAL IV (14:36)
[2019-10-26 16:02] LABS: D-Dimer 456 ng/mlFEU (<500)
[2019-10-26] MEDS: predniSONE 20 MG TAB 60 MG PO (16:12)
[2019-10-26] MEDS: valACYclovir 500 MG TAB 1000 MG PO (16:26)
--- NOTE | 2019-10-27 10:46 | NUR.NOTE ---
Nursing Note: Patient called stating that her bupripiron was increased from 150 to 300 daily. Could this have caused the problem? Per Dr Mosqueda no this did not cause the problem. Patient stated she understood. Melissa Awan.
[2019-10-29 18:56] LABS: Anaplasma phagocytophilum Negative (Negative); B. miyamotoi PCR Negative (Negative); Babesia divergens/MO-1 Negative (Negative); Babesia duncani Negative (Negative); Babesia microti Negative (Negative); Ehrlichia chaffeensis Negative (Negative); Ehrlichia ewingii/canis Negative (Negative); Ehrlichia muris eauclairensis Negative (Negative)
[2019-10-30 12:06] LABS: Lyme Ab w Rflx to Lyme Confirm Positive (Negative)
--- NOTE | 2019-10-31 08:35 | ED.FU.B_ITS ---
Patient seen here last week and diagnosed with Hicks's palsy. Tick and Lyme panel resulted today and Lyme disease antibody positive. Patient was called at home and she still has R sided facial drooping. A prescription for doxycycline 100 mg p.o. twice daily x28 days called into [facility] in [place]. Patient states she has an appointment with Dr. Mcrae today at 3 PM. Case was discussed with Dr. Mcrae. Specific IgM/IgG antibody titers pending. She will follow up on them. She agrees with plan for treatment with doxycycline at this time.
[2019-11-02 16:01] LABS: IgG Immunoblot Negative (Negative); IgM Immunoblot Negative (Negative)
== END 2019-10-26 16:50 | disposition home or self-care (01) ==
PROVIDERS: Emergency Provider Physician Assistant; PCP Family Medicine
DX: G51.0 Bell's palsy (principal); R51 Headache; I10 Essential (primary) hypertension
CPT/HCPCS: 36415; 36416; 70496; 70498; 80053; 82962; 86617; 87798; 93005; 99285; 71046; 83735; 84484; 85025; 85379; 85610; 85730; 86618; 93010; 99284; J3490; J7512

== ENCOUNTER 2019-11-13 03:08 | Outpatient (CLI) | payer MEDICARE, SELFPAY ==
[2019-11-13 11:39] LABS: Hemoglobin A1C 5.8 % (3.8-5.6)
[2019-11-13 11:40] LABS: ALT 46 U/L (14-59); AST 32 U/L (15-37); Alkaline Phosphatase 83 U/L (46-116); Anion Gap 6.7 mmol/L (3-11); BUN 23 mg/dL (7-18); Bilirubin, Total 0.4 mg/dL (0.2-1.0); CO2 31.3 mmol/L (21.0-32.0); CREATININE 0.96 mg/dL (0.55-1.02); Calcium 9.5 mg/dL (8.5-10.1); Chloride 102 mmol/L (98-107); Estimated GFR 58.15 (mL/min/1.73m2); Glucose 103 mg/dL (74-106); Magnesium 2.1 mg/dL (1.8-2.4); Potassium 4.1 mmol/L (3.5-5.1); Sodium 140 mmol/L (136-145)
[2019-11-14 14:43] LABS: Lyme Ab w Rflx to Lyme Confirm Positive (Negative)
[2019-11-16 13:55] LABS: IgG Immunoblot Negative (Negative); IgM Immunoblot Negative (Negative)
== END 2019-11-13 03:28 ==
PROVIDERS: PCP Family Medicine; Visit Provider Family Medicine
DX: E83.42 Hypomagnesemia (principal); R73.9 Hyperglycemia, unspecified; R76.8 Other specified abnormal immunological findings in serum; R74.0 Nonspecific elevation of levels of transaminase and lactic acid dehydrogenase [LDH]
CPT/HCPCS: 36415; 80053; 86617; 83036; 83735; 86618

== ENCOUNTER → 2020-01-01 09:36 | Outpatient (BNVA) | payer MEDICARE, SELFPAY | PROVIDERS: PCP Family Medicine; Referring Provider Family Medicine; Visit Provider Student in an Organized Health Care Education/Training Program | DX: M17.11 Unilateral primary osteoarthritis, right knee (principal); G31.84 Mild cognitive impairment of uncertain or unknown etiology; R53.83 Other fatigue; F32.9 Major depressive disorder, single episode, unspecified; M79.7 Fibromyalgia | CPT/HCPCS: 99214 ==

== ENCOUNTER → 2020-02-05 10:41 | Outpatient (BNVA) | payer MEDICARE, SELFPAY | PROVIDERS: PCP Family Medicine; Visit Provider Student in an Organized Health Care Education/Training Program | DX: M17.11 Unilateral primary osteoarthritis, right knee; Z11.59 Encounter for screening for other viral diseases | CPT/HCPCS: 99214 ==

== ENCOUNTER → 2020-02-11 08:46 | Outpatient (BNVA) | payer MEDICARE, SELFPAY | PROVIDERS: PCP Family Medicine; Referring Provider Family Medicine; Visit Provider Nurse Practitioner Adult Health | DX: G31.84 Mild cognitive impairment of uncertain or unknown etiology (principal) | CPT/HCPCS: 99213 ==

== ENCOUNTER → 2020-03-24 13:06 | Outpatient (BNVA) | payer MEDICARE, SELFPAY | PROVIDERS: PCP Family Medicine; Referring Provider Family Medicine; Visit Provider Student in an Organized Health Care Education/Training Program | DX: Z01.818 Encounter for other preprocedural examination (principal); M17.11 Unilateral primary osteoarthritis, right knee; R94.5 Abnormal results of liver function studies ==

== ENCOUNTER 2020-04-11 01:47 | Outpatient (CLI) | payer MEDICARE, SELFPAY ==
[2020-04-11 10:43] LABS: HCT 43.3 % (36.0-46.0); HGB 13.7 g/dL (11.2-15.7); MCH 28.2 pg (27.0-33.0); MCHC 31.6 % (32.0-36.0); MCV 89.1 fL (80-95); MPV 10.4 fL (8.0-11.0); Platelet Count 206 10^3/uL (130-400); RBC 4.86 10^6/uL (3.93-5.22); RDW 13.2 % (11.7-14.6); RDW-SD 43.7 fL; WBC 5.35 10^3/uL (4.4-10.8)
[2020-04-11 11:56] LABS: BUN 17 mg/dL (7-18); CREATININE 0.77 mg/dL (0.55-1.02); Calcium 9.6 mg/dL (8.5-10.1); Chloride 103 mmol/L (98-107); Glucose 101 mg/dL (74-106); Potassium 4.4 mmol/L (3.5-5.1); Sodium 142 mmol/L (136-145)
== END 2020-04-11 02:07 ==
PROVIDERS: PCP Family Medicine; Visit Provider Student in an Organized Health Care Education/Training Program
DX: R94.5 Abnormal results of liver function studies (principal); M25.561 Pain in right knee; M17.11 Unilateral primary osteoarthritis, right knee
CPT/HCPCS: 36415; 80048; 85027

== ENCOUNTER 2020-04-11 08:24 | Outpatient (CLI) | payer MEDICARE, SELFPAY ==
[2020-04-12 14:59] LABS: COVID-19 RT-PCR Result NEGATIVE (Negative)
== END 2020-04-11 08:44 ==
PROVIDERS: PCP Family Medicine; Visit Provider Student in an Organized Health Care Education/Training Program
DX: M17.11 Unilateral primary osteoarthritis, right knee (principal); Z11.59 Encounter for screening for other viral diseases; Z01.818 Encounter for other preprocedural examination; R94.5 Abnormal results of liver function studies; M25.561 Pain in right knee
CPT/HCPCS: 36415; 80048; 85027; U0003

== ENCOUNTER → 2020-04-15 08:13 | Outpatient (BNVA) | payer MEDICARE, SELFPAY | PROVIDERS: PCP Family Medicine; Referring Provider Family Medicine; Visit Provider Student in an Organized Health Care Education/Training Program | DX: R69 Illness, unspecified (principal) ==

== ENCOUNTER 2020-04-15 09:16 | Observation (INO) | payer MEDICARE, SELFPAY ==
[2020-04-15] VITALS (11 sets, daily range): BP systolic 101–139; BP diastolic 56–78; PULSE 61–77; RESP 14–18; TEMP 35.9–36.7; O2SAT 90–100
[2020-04-15] MEDS: Acetaminophen 500 MG TAB 1000 MG PO ×2 (10:31→20:41)
[2020-04-15] MEDS: Gabapentin 300 MG CAP PO ×2 (10:31→21:55)
[2020-04-15] MEDS: Celecoxib 200 MG CAP 400 MG PO (10:31)
[2020-04-15] MEDS: Lactated Ringers 1,000 ML 80 ML IV ×2 (10:45→16:28)
[2020-04-15] MEDS: ceFAZolin 2 GM/50 ML BAG IVPB (13:40)
[2020-04-15] MEDS: Bupivacaine 0.25% Pres-Free 30 ML VIAL (14:34)
[2020-04-15] MEDS: Normal Saline 20 ML VIAL (14:34)
[2020-04-15] MEDS: Ketorolac 30 MG/ML VIAL (14:34)
--- NOTE | 2020-04-15 16:20 | PT.INIE ---
Date of service: 04/15/20 Time of Service: 16:20 PT Notes Visit Reasons: R KNEE TOTAL Physical Therapy Inpatient Initial Evaluation Date: 04/15/2020 Referring Doctor: JOSH Campo PT Orders: PT CONSULT: Status post ankle surgery Precautions: Fall. Standard. WBAT on the right LE. Patient Profile/Admitting Diagnosis: Sai is a 64-year-old female with localized osteoarthritis of the right knee and is status post right total knee arthroplasty on postoperative day 0. PMHX: Medical History (Updated 03/24/20 @ 14:08 by Miriam Houston) Anxiety Depression Endometrial cancer Fibromyalgia GERD (gastroesophageal reflux disease) Mild cognitive impairment Multiple personality disorder Surgical History Colonoscopy - MAC (11/14/17) Hysterectomy, Laproscopic (~09/2011) TOTAL Rotator Cuff Repair (08/06/09) DR. LYNCH Social History/Home Situation: Lives with in a private home with 2 steps to enter with rails. Dependent with all aspects of ADLs prior to surgery. Equipment Owned/DME: Front wheel walker, single-point cane Subjective: Reports being drowsy and weak but is agreeable to PT consult. Denies headache and chest pain. Reported mild lightheadedness during mobility assessment. Reported no significant pain but mild achiness through the right thigh and hip. Objective: General Observation: Supine in bed. Cryo/Cuff on right knee. TEDS on the left leg. IV in the right knee. Joel wraps over right LE. Mental Status: Patient appears to be but is coherent and responds appropriately to instructions. Oriented x4. Pain: 1/10 in the right thigh and hip Vital Signs: Within normal limits as taken by nurse Padilla immediately prior to PT visit ROM: Right Upper Extremity: Shoulder Flexion WFL. Shoulder abduction WFL. Elbow flexion WFL. Wrist flexion WFL. Opening and closing of hand WFL. Left Upper Extremity: Shoulder Flexion WFL. Shoulder abduction WFL. Elbow flexion WFL. Wrist flexion WFL. Opening and closing of hand WFL. Right Lower Extremity: Hip flexion WFL. Hip abduction WFL. Knee flexion 20 to 90 degrees. Knee extension -20 degrees with empty end feel. Ankle dorsiflexion WFL. Ankle plantarflexion WFL. Left Lower Extremity: Hip flexion WFL. Hip abduction WFL. Knee flexion WFL. Ankle dorsiflexion WFL. Ankle plantarflexion WFL. Strength: Right Upper Extremity: Shoulder flexors 5/5. Shoulder abductors 5/5. Elbow flexors 5/5. Elbow extensors 5/5. Grades 1 Through 5 Teacher strong. Left Upper Extremity: Shoulder flexors 5/5. Shoulder abductors 5/5. Elbow flexors 5/5. Elbow extensors 5/5. Grades 1 Through 5 Teacher strong. Right Lower Extremity: Hip flexors 4/5. Hip abductors 4/5. Knee flexors 3-/5. Knee extensors 3#-/5. Ankle dorsiflexors 4/5. Ankle plantarflexors 4/5. Left Lower Extremity:Hip flexors 5/5. Hip abductors 5/5. Knee flexors 5/5. Knee extensors 5/5. Ankle dorsiflexors 5/5. Ankle plantarflexors 5/5. Sensation: Intact as to pain and pressure on bilateral lower extremities. Bed Mobility/Transfers: Contact-guard assist Supine to sit contact-guard assist Sit to stand contact-guard assist Stand to sit standby assist Bed to chair contact-guard assist Gait: 100 feet of level surface ambulation using front wheeled walker with step to gait pattern requiring contact-guard assist and wheelchair follow-up PT as well as standby assist letter management of nurse Padilla. Decreased darren. Decreased step height on the right LE. Reported achy sensation through the right thigh and hip that subsided with rest. Balance: Static Sitting: Normal Dynamic Sitting: Normal Static Standing: Fair Dynamic Standing: Fair Special Tests: Mobility Limitations [facility] Basic Mobility Inpatient Short Form: Raw Score: 18 CMS Score: 47% deficit Informed Consent/Education: Patient instructed in purpose of PT consult and plan of care. Assessment: Jeffery demonstrates functional mobility decline requiring the use of a front wheel walker for all mobility ADL performance, unsteadiness of gait, difficulty with walking, and increased risk for falls due to postoperative status. Sai is a 64-year-old female with localized osteoarthritis of the right knee and is status post right total knee arthroplasty on postoperative day 0. Patient presents with clinical signs and symptoms consistent with current/admitting diagnoses that have resulted to mobility limitations, gait instability, generalized weakness, and impairment of motor control as demonstrated by the following impairment level findings: 1. Decreased strength to R knee major muscle groups 2. Impaired standing balance 3. Impaired activity tolerance 4. Limitation of joint range of motion in right knee Impairments are contributing to the following functional limitations: 1. Dependent bed mobility skills 2. Increased dependence with transfers 3. Inability to safely ambulate without assistive device and physical assistance 4. Increase completion time for mobility ADL performance 5. Increased fall risk 6. Inability to negotiate steps alone safely Patient is assessed as a 22374 moderate complexity based on the following: History: 64 [id number] with impairment level findings, functional limitations, and past medical history as indicated above Examination: Demonstrable impairment in strength, balance, and mobility level with underlying impairments and functional limitations as documented above Presentation:Evolving Decision Makin moderate complexity Goals: Goals X 3 days 1. Supine-Sit independent 2. Sit-Supine independent 3. Sit-Stand independent 4. Stand-Sit independent 5. Bed-Chair independent 6. Chair-Bed independent 7. Independent gait on level surface with use of FWW for at least 300 feet without report of pain nor dyspnea 8. Independent stair negotiation while holding onto bilateral rails for at least 5 steps without report of pain nor dyspnea 9. Independent with home exercise program 10. Good static and dynamic standing balance/tolerance Plan of Care/Treatment Plan: 1-2x/day, x 3 days. Plan of care has been reviewed with the [employer] providing the service under Physical Therapy direction. Initiate Physical Therapy intervention for strengthening, bed mobility, transfers, gait, stairs, balance training, use of assistive device. DISCHARGE RECOMMENDATIONS: Home when medically cleared by orthopedic surgeon. Outpatient PT services in order to facilitate return to premorbid independent level. TREATMENT CODE/TIME: 44501 x 30 minutes beginning at 16:20 PM. Thank you for the opportunity to participate in the care of this patient. Palak Ramirez PT, DPT, CLT [facility] [place], [place]
--- NOTE | 2020-04-15 16:21 | NUR.NOTE ---
Nursing Note:. VSS. Pt A&Ox3, but drowsy. Able to wiggle toes c/o tingling in feet. sipping on gingerale.
[2020-04-15] MEDS: HYDROmorphone 2 MG TAB PO ×2 (16:57→22:20)
--- NOTE | 2020-04-15 20:08 | W.PM.OP ---
Date of service: 04/15/20 Time of Service: 15:08 Operative Note Operative Note DATE OF PROCEDURE: 04/15/20 PRE-OP DIAGNOSIS: Right Knee Osteoarthritis POST-OP DIAGNOSIS: same PROCEDURE: Right Total Knee Replacement SURGEON: Reggie Shin AUTOMOBILE RELOCATION ENGINEER: Alanna Toussaint ANESTHESIA: regional and spinal ESTIMATED BLOOD LOSS: 300 PATHOLOGY: none sent TOURNIQUET TIME: 0 COMPLICATIONS: None Patient was transported to: PACU Patient's condition: stable Implants: 1. Depuy Attune Cementless Cruciate Retaining Femoral Component, Size 5 2. Depuy Attune Cementless Rotating Platform Tibial Component, Size 4 3. Depuy Attune 5x7mm CR/RP Poly 4. Depuy Attune Patellar Component, Size 38mm Indications: I have seen Luz in clinic for symptoms of knee arthritis, confirmed with radiographic findings. She has exhausted nonoperative methods and was having significant limitations in daily function and desired better function and less pain. I discussed the technical details of a knee replacement. I explained the risks of the procedure to include, but not limited to, bleeding, infection, pain, stiffness, fracture, damage to nerves and vessels, damage to muscles and tendons, loosening, need for repeat procedure, blood clot and cardiopulmonary demise. Despite these risks, she elected to proceed. Findings: There was significant signs of arthritis throughout the knee. All three compartments were involved. Procedure Description: Luz was greeted in the preoperative holding area where the correct side was identified and marked. The consent was reviewed with the patient and signed. The history and physical was updated. All questions were answered. Preoperative medications were administered: Acetaminophen 1000mg, Celebrex 400mg, and Gabapentin 300mg. An adductor canal block was then administered by the anesthesia team in the PACU. She was taken back to the operating room. A spinal anesthestic was then administered. The patient was placed into the supine position on the operating room table. A nonsterile tourniquet was placed high onto the leg but only used for cementing. Posts were placed for positioning during the procedure. All bony prominences were well padded. Prophylactic antibiotics in the form of Cefazolin were administered. 1g of Tranxemic Acid was given intravenously within 30 minutes of incision. The right leg was then prepped with Chloraprep and draped in a standard fashion with impervious stockinette. A second prep with Chloraprep was performed prior to application of Iodine impregnated skin protection. A timeout to confirm correct identity, side and site, procedure, allergies, anesthesia, and medical concerns was performed. With the knee in some flexion, a midline incision was made overlying the knee. Full thickness skin flaps were raised once the extensor mechanism was encountered. These were raised medially and laterally. Any bleeding was controlled with electrocautery. Once the extensor mechanism was fully exposed, a medial parapatellar arthrotomy was performed in a flexed position. All bleeding from the arthrotomy and the geniculate arteries was coagulated. A medial subperiosteal peel was performed with electrocautery to the midcoronal plane. The fat pad was removed while keeping the patellar tendon protected. The anterior distal femur synovium was removed for later visualization. The ACL and PCL were resected and the anterior horn of the lateral meniscus was transected. The knee was then flexed with the patella everted. Using a step drill, and based on preoperative templating, the femoral canal was entered. This was done with a step drill without any difficulty. The intramedullary distal femoral cut guide was inserted, set to a 5 degree valgus cut and 9mm cut thickness. The distal femoral cut guide was then held in position and pinned. With the soft tissues protected, the distal cut was performed. This was passed over a few times to ensure a planar cut. I then turned attention to the tibia. The extramedullary guide was placed onto the leg. The distal aspect was slid medial to adjust for position of center of ankle and stay in line with shaft of the tibia. Approximately 3-5 degrees of posterior slope was kept in the proximal cutting guide. The center of the guide was aligned with the PCL. The stylus was used to assess cut thickness. The medial side, most involved side, was set for a 4mm cut. This was then held in position and pinned into place with 2 additional pins and a cross pin for stability. The medial and lateral collateral ligaments were protected and the cut was performed. With this completed, it was assessed and noted to be of appropriate dimensions. The guide was removed. A spacer block was inserted and the knee was brought into extension. The 7mm spacer block provided full extension, without hyperextension and with stability of both the medial and lateral collateral ligaments was assessed. The pins from the femur and the tibia were then removed. The distal femur was then sized. The anterior stylus was placed onto the lateral ridge of the anterior femur. This indicated a size 5 femur. The external rotation of the guide was adjusted to 3 degrees to match the epicondylar axis, perpendicular to [place] line. The 4-in-1 cutting guide was the placed. The posterior medial femur cut was evaluated and appeared of good thickness. The spacer block was inserted underneath the cutting guide and stability was confirmed in 90 degrees of flexion. An jas wing was used to confirm appropriate position of the anterior cut to avoid notching. This cutting guide was ensured to be flush on the cut surface and then pinned into place with headed pins. While protecting the soft tissues, quad tendon, and collateral ligaments, the anterior and posterior cuts were performed with a saw. The central two pins were removed and the posterior and anterior chamfers were cut next. The notch-cutting guide was placed. This was pinned to lateralize the femoral component as much as possible while keeping it flush on the cut surface. This was then pinned into position. A reciprocating saw was used to make the notch cut. A rasp smoothed the cut surfaces. The medial and lateral menisci were removed. A trial femoral component was then inserted, impacted down to the cut surfaces, and the lug holes were drilled. A provisional trial tibial component was placed and the knee was brought through range of motion. There was noted to be excellent extension and flexion. There was no significant instability. The patella was tracking without thumbs. A size 7mm polyethylene component provided the best range of motion and stability with less than 2mm gapping with medial and lateral stress and full extension without significant hyperextension. The tibial cut surface was fully exposed. The tibia was then sized as a 4. The tibia had been previously marked during trialing to correspond to the center of the tibial component to help with rotation. The trial was aligned to this ela, approximately rotated to the medial 1/3rd of the tibial tubercle. The trial was pinned into place. The tibia was prepared with a reamer and a keel punch and lug holes. The knee was then brought into extension and the patella was measured as 25mm. Using the patellar clamp and cut guide, this was resected to a flat surface with at least 13mm of thickness remaining. The size 38mm patella fit the best. This was oriented and then clamped into position. The lugs were drilled. The trial components were removed. The final components were opened on the back table. The periosteal and capsular tissues, especially posteriorly, around the knee were then systematically injected with a periarticular cocktail consisting of 50cc 0.25% Marcaine, 30mg Ketorolac, 20cc of Exparal and 50cc of injectable saline. The knee was thoroughly irrigated with a pulse lavage and dried. Irrisept was also used to irrigate the tissues. On the back table, with the implants opened, the cement was mixed. One batche of high viscosity cement were prepared with vacuum assistance. After the cement was ready a small amount was placed on the cut surface of the patella and the patellar button was clamped into position and held. During this process attention was turned to the gutters of the knee and for all interfaces for any excess cement. While the cement was hardening, the cementless knee components were placed. Starting with the tibial component, the tibia was subluxed anteriorly and the lug holes of the component were lined up. The tibia was then impacted with an impactor and mallet until the tibial component was in contact with the tibia. The final polyethylene component was inserted. Then, the femoral component was inserted. The lug holes were aligned and the component was impacted into position. The knee was irrigated with Irrisept chlorhexadine solution. This was allowed to sit in the knee for 3 minutes. After the cement had finally cured, approximately 15min, the clamp was removed from the patella and the knee was taken through range of motion. The patella was tracking with a no-thumbs technique. The capsule was then reapproximated with a No. 1 Vicryl at multiple locations. The capsule was finally closed with a No. 2 Stratafix, barbed suture. The tourniquet was then released and the arthrotomy appeared watertight without significant bleeding. The second dosing of 1g TXA was started. Deep tissues were then reapproximated with 0 Vicryl and 2-0 Vicryl. The skin was closed with a running 3-0 Monocryl in a subcuticular fashion. This was reinforced with skin glue. A Mepilex silver dressing was applied along with a [id number] JIGNA wrap. A CryoCuff was applied. Luz was transferred to the hospital bed without difficulty an suffering no apparent complication. Luz has a good prognosis. Physical therapy will start today and without restrictions, weight-bearing as tolerated. Aspirin 81mg BID will be used for DVT prophylaxis.
[2020-04-15] MEDS: Pregabalin 50 MG CAP 150 MG PO (20:41)
[2020-04-15] MEDS: busPIRone 15 MG TAB 30 MG PO (20:41)
[2020-04-15] MEDS: Calcium 600mg/Vit D 200U TAB 1 TAB PO (20:41)
[2020-04-15] MEDS: Pravastatin 20 MG TAB PO (20:41)
[2020-04-15] MEDS: Propranolol 10 MG TAB PO (20:41)
[2020-04-15] MEDS: Celecoxib 200 MG CAP PO (20:41)
[2020-04-15] MEDS: Aspirin E.C. 81 MG TABEC PO (20:41)
[2020-04-15] MEDS: ceFAZolin 1 GM/50 ML BAG IVPB (20:42)
[2020-04-15] MEDS: risperiDONE 1 MG TAB 3 MG PO (21:55)
[2020-04-16 03:20] VITALS: BP 121/74; PULSE 68; RESP 17; TEMP 36.5; O2SAT 93
[2020-04-16] MEDS: ceFAZolin 1 GM/50 ML BAG IVPB (04:08)
[2020-04-16] MEDS: Lactated Ringers 1,000 ML 80 ML IV (05:13)
[2020-04-16 07:52] VITALS: BP 112/60; PULSE 70; RESP 20; TEMP 37; O2SAT 96
[2020-04-16] MEDS: Calcium 600mg/Vit D 200U TAB 1 TAB PO (08:14)
[2020-04-16] MEDS: busPIRone 15 MG TAB 30 MG PO (08:14)
[2020-04-16] MEDS: Pantoprazole 40 MG TABCR PO (08:14)
[2020-04-16] MEDS: Aspirin E.C. 81 MG TABEC PO (08:15)
[2020-04-16] MEDS: Omega-3 Fatty Acids 1000 MG CAP PO (08:15)
[2020-04-16] MEDS: Pregabalin 50 MG CAP 150 MG PO (08:15)
[2020-04-16] MEDS: Celecoxib 200 MG CAP PO (08:15)
[2020-04-16] MEDS: Acetaminophen 500 MG TAB 1000 MG PO (08:16)
[2020-04-16] MEDS: Magnesium Oxide 400 MG TAB 1000 MG PO (08:16)
[2020-04-16] MEDS: Loratidine 10 MG TAB PO (08:16)
[2020-04-16] MEDS: Cyanocobalamin 500 MCG TAB PO (08:16)
[2020-04-16] MEDS: Ascorbic Acid 500 MG TAB PO (08:16)
[2020-04-16] MEDS: Propranolol 10 MG TAB PO (08:16)
[2020-04-16] MEDS: buPROPion-XL 150 MG TABCR PO (08:16)
[2020-04-16] MEDS: Venlafaxine 150 MG CAPCR PO (08:17)
[2020-04-16] MEDS: Venlafaxine 37.5 MG CAPCR 75 MG PO (08:17)
[2020-04-16] MEDS: Multivitamin TAB 1 TAB PO (08:17)
--- NOTE | 2020-04-16 09:28 | PT.INTREAT ---
Date of service: 04/16/20 Time of Service: 09:28 PT Notes Visit Reasons: R KNEE TOTAL Inpatient Physical Therapy Treatment Note [facility] Date: 04/16/2020 PRECAUTIONS: Fall, Activity as tolerated SUBJECTIVE: Sai is pleasant and agreeable to participating in PT, she states that she is having increased anterior thigh pain today. OBJECTIVE: PAIN: Patient complained of anterior thigh pain with ther ex. BED MOBILITY/TRANSFERS Supine-sit: I with HOB flat Sit-supine: I with HOB flat Sit-stand: S Stand-sit: S Bed-Chair: SBA Chair-bed: SBA GAIT Assistive Device: FWW Weight bearing: WBAT R Assist: SBA Distance: 100' + 160' Deviation: Step-through instruction THEREX: Patient was instructed in several lower extremity strengthening and stabilization exercises, while in a long-sitting position, as per flow sheet. Cryocuff to R knee. STAIRS: Up/down 3x4 and 2x6 using B rail and a step-to pattern with SBA; up/down 3x4 and 2x6 using U rail/SPC and a step-to pattern with SBA ASSESSMENT: Patient tolerated session with complaints of anterior thigh pain, which decreased with activity. She demonstrates independence with bed mobility at this time. Patient would benefit from continued gait and transfer training as well as global strengthening for improved mobility and activity tolerance. PLAN: Continue with global strengthening and gait training on an outpatient basis TREATMENT CODE/TIME: 30 minutes; 61437, [id number]
--- NOTE | 2020-04-16 10:46 | W.PM.DS.N ---
Date of service: 04/16/20 Time of Service: 10:46 DS: Diagnosis Discharge Diagnosis (1) Localized osteoarthritis of right knee: Status: Chronic Discharge Plan Disposition Patient Disposition: HOME Condition: Stable Discharge Details Reason For Visit: R KNEE TOTAL Admit Date/Time: 04/15/20 09:16 Admit Provider: Reggie Shin Attending Provider: Reggie Shin Primary Care Provider: [facility] Course Hospital Course: Patient was admitted to the medical/surgical floor following the procedure. The surgery was tolerated well without any notable medical, surgical, or anesthetic complications. Mobilization began postoperatively. [He][She] was voiding spontaneously. Vitals were stable. Physical therapy worked with the patient and was cleared for discharge home. No acute medical issues. Pain was controlled on oral regimen. Home Meds and New Rx's Prescriptions: New aspirin 81 mg tablet,delayed release (DR/EC) 81 mg PO BID Qty: 60 RF: 0 acetaminophen [Tylenol Extra Strength] 500 mg tablet 500 mg PO Q6H PRNQty: 90 RF: 0 celecoxib [Celebrex] 200 mg capsule 200 mg PO BID Qty: 60 RF: 0 hydromorphone 2 mg tablet 2 mg PO Q6H PRNQty: 16 RF: 0 Continued omega-3 fatty acids-fish oil [Fish Oil] 300-1,000 mg capsule 1 cap PO BID RF: 0 Benefiber Healthy Shape 5 gram/7.4 gram powder See Rx Instructions PO .COMPLEX RF: 0 boron citrate 3 mg tablet 3 mg PO DAILY RF: 0 tramadol 50 mg tablet 50 mg PO BID PRN (Reason: pain) Qty: 20 RF: 0 magnesium oxide 500 mg capsule 1,000 mg PO DAILY Qty: 90 RF: 6 levomefolate calcium [L-Methylfolate] 15 mg tablet 15 mg PO DAILY RF: 0 calcium carbonate-vitamin D3 1 EACH tablet 1 tab PO BID RF: 0 cyanocobalamin (vitamin B-12) [Vitamin B-12] 500 MCG tablet 1 tab PO DAILY RF: 0 ascorbic acid (vitamin C) 500 MG tablet 1 tab PO DAILY RF: 0 Multi Complete with Iron 1 EACH tablet 1 tab PO DAILY RF: 0 docusate sodium [Colace] 100 MG capsule 100 mg PO HS RF: 0 loratadine 10 MG tablet 10 mg PO DAILY Qty: 90 RF: 4 triamcinolone acetonide 30 GM ointment 30 gm Topical bid prn Qty: 30 RF: 1 nystatin 60 GM powder 1 bubba Topical BID prn Qty: 60 RF: 11 omeprazole 40 mg capsule,delayed release(DR/EC) 40 mg PO DAILY Qty: 90 RF: 4 propranolol 10 mg tablet 10 mg PO BID Qty: 180 RF: 4 pravastatin 20 mg tablet 20 mg PO DAILY Qty: 90 RF: 4 venlafaxine 75 mg capsule,extended release 24hr 225 mg PO DAILY Qty: 270 RF: 3 risperidone 3 mg tablet 3 mg PO HS Qty: 90 RF: 4 buspirone 30 mg tablet 30 mg PO BID Qty: 180 RF: 4 clonazepam 0.5 mg tablet 0.25 mg PO BID PRN (Reason: josué) Qty: 30 RF: 3 pregabalin 150 mg capsule 150 mg PO TID Qty: 90 RF: 2 bupropion HCl 150 mg tablet extended release 24 hr 150 mg PO QAM Qty: 30 RF: 2 dextroamphetamine 10 mg capsule, extended release 10 mg PO DAILY MDD 10 mg Qty: 90 RF: 0 Discontinued aspirin [Ecotrin Low Strength] 81 MG tablet,delayed release (DR/EC) 81 mg PO DAILY RF: 0 celecoxib [Celebrex] 200 mg capsule 200 mg PO BID Qty: 60 RF: 6 Discharge Instructions Additional Instructions: Total Knee Discharge Instructions Activity: The most important activity is to walk. You should try to take short walks a few times a day. It is important that when resting you work on keeping the knee straight. Avoid putting a pillow behind the knee as this will encourage flexion. Work on range of motion exercises as provided by Physical Therapy. - Start outpatient physical therapy within 2 weeks. - You should wear the MARY hose on both legs for 2 weeks. Dressing: Keep the surgical dressing in place for at least one week. After the first week it may be removed and replace with light gauze and tape or nothing. It may get wet after 3 days but avoid soaking the dressing. If it gets wet, just lightly pat dry. Medications: - You should take Tylenol and anti-inflammatory Celebrex as your primary pain control medications - You have been prescribed a stronger pain medication hydromorphone for breakthrough pain, take as needed as prescribed. - You should continue Omeprazole to help reduce stomach acid and reflux. - You will be taking Aspirin 81mg twice a day for DVT prevention unless instructed otherwise. - If you have constipation you should take Colace or Miralax (both [id number]). It takes most people 3-4 days to have a bowel movement. Follow-up: 2 weeks Referrals: Reggie Shin MD [ [facility] STAFF PHYSICIAN] - Activity:: Activity as Tolerated Equipment/Supplies:: Walker Diet:: As Tolerated Discharge Orders Discharge Orders: Discharge Order (Routine); Ordered 04/16/20 Ordered By: Reggie Shin DS: Summary Status at Discharge Functional status at discharge: uses cane/walker Overall status at discharge: patient is progressing back to baseline Mental Status: mental status grossly normal Speech and Movement: speech and movement normal Mood: congruent mood Affect: normal affect Exam Psych Mental Status: mental status grossly normal Speech and Movement: speech and movement normal Mood: congruent mood Affect: normal affect DS: Data Vitals/I&O Vitals and I&O: Vital Signs Temperature 37.0 C 04/16/20 07:52 Temperature Source Tympanic 04/16/20 07:52 Pulse 70 04/16/20 07:52 Pulse Rhythm Regular 04/16/20 10:00 Respiratory Rate 20 04/16/20 07:52 Respiratory Effort Non-Labored 04/16/20 10:00 Respiratory Depth Normal 04/16/20 10:00 Respiratory Pattern Normal 04/16/20 10:00 Blood Pressure 112/60 04/16/20 07:52 Pulse Oximetry 96 04/16/20 07:52 Respiratory End-tidal CO2 39 04/15/20 16:01 Oxygen Delivery Method Room Air 04/16/20 07:52 Oxygen Flow Rate 0 04/16/20 07:52 Pain Level 3 04/16/20 08:16 Intake & Output 04/15/20 04/15/20 04/16/20 11:59 23:59 11:59 Intake Total 1717.333 / 4028.052 9894 / 1880 Output Total 1000 / 1000 1100 / 1100 Balance 717.333 / 717.333 780 / 780 Weight 89.9 kg Intake: IV 1017.333 / 8237.646 7990 / 1000 Oral 700 / 700 880 / 880 Output: Urine 1000 / 1000 1100 / 1100 Other: Urine Color Yellow Yellow Urine Appearance Clear Clear Urine Odor Normal None Comment void x2 Emesis Description None Voiding Methods Toilet Toilet PFSH Medical History Anxiety Hicks's palsy Depression Endometrial cancer Fibromyalgia GERD (gastroesophageal reflux disease) Mild cognitive impairment Multiple personality disorder Pt. states currently on medication My alters haven't come out for years Surgical History Colonoscopy - MAC (11/14/17) twice Hysterectomy, Laproscopic (~09/2011) TOTAL Rotator Cuff Repair (08/06/09) DR. LYNCH, right Family History Mother , AGE 85 Diabetes Essential hypertension Arthritis Dementia Heart disease Hyperlipidemia Anxiety Depression Father , AGE 70 Diabetes Essential hypertension Heart disease Hyperlipidemia Sister Essential hypertension Hyperlipidemia Maternal Grandfather , age 70 Heart disease Paternal Grandfather , age 57 Heart disease Maternal Grandmother , age 81 Heart disease Goiter Paternal Grandmother , age 90 Diabetes Essential hypertension Goiter Heart disease Hyperlipidemia Maternal Aunt Dementia Maternal Aunt Dementia Maternal Aunt Dementia Maternal Aunt Dementia Goiter Son Essential hypertension Social History Smoking/Tobacco Use Status: Never Alcohol Intake: never Drug use: Never Substance use type: does not use Caregiver/Support person: No Household members: spouse Housing: house Communication Needs: Corrective Lenses Do you need help understanding health information?: Rarely current occupation: HOUSEWIFE Pets and animals: Yes Pets and animals: dog(s) Sexually active: No Do you think of yourself as: straight/heterosexual Current gender identity: female What is your relationship status?: How often do you talk on the phone with friends or family?: twice per week How often do you get together with friends or relatives?: once per week How often do you attend judaism or spiritism services?: decline to answer Do you belong to any clubs or organized social groups?: no Panel score (0-1 are the most socially isolated patients): 2 What type of physical activity do you participate in: none Duration: 15-30 minutes/day Frequency: 3-4 times per week Steph/Hinduism: Pentecostalism Special steph needs: No Seatbelt use: always Drive intox or ride w/intox stock driver: No Firearms in home: Yes Do you feel safe at home: Yes Do you feel safe in your relationship?: Yes
[2020-04-16] MEDS: HYDROmorphone 2 MG TAB PO (12:36)
--- NOTE | 2020-04-24 12:50 | PT.INDS ---
Date of service: 04/24/20 Time of Service: 12:50 PT Notes Visit Reasons: R KNEE TOTAL Physical Therapy Inpatient Discharge Summary Date: 04/24/2020 Date of service: 04/15/2020 through 04/16/2020 This is a clinical summary of care provided on the duration of dates listed above. No charge was made in the completion of this documentation. Referring Doctor: JOSH Campo PT Orders: PT CONSULT: Status post ankle surgery Precautions: Fall. Standard. WBAT on the right LE. Patient Profile/Admitting Diagnosis: Sai is a 64-year-old female with localized osteoarthritis of the right knee and is status post right total knee arthroplasty on postoperative day 0. PMHX: Medical History (Updated 03/24/20 @ 14:08 by Miriam Houston) Anxiety Depression Endometrial cancer Fibromyalgia GERD (gastroesophageal reflux disease) Mild cognitive impairment Multiple personality disorder Surgical History Colonoscopy - MAC (11/14/17) Hysterectomy, Laproscopic (~09/2011) TOTAL Rotator Cuff Repair (08/06/09) DR. LYNCH Social History/Home Situation: Lives with in a private home with 2 steps to enter with rails. Dependent with all aspects of ADLs prior to surgery. Equipment Owned/DME: Front wheel walker, single-point cane Subjective: NT. See most recent TEMPORARY HELP AGENCY REFERRAL CLERK notes. Objective: General Observation: NT. See most recent TEMPORARY HELP AGENCY REFERRAL CLERK notes. Mental Status: NT. See most recent TEMPORARY HELP AGENCY REFERRAL CLERK notes. Vital Signs: NT. See most recent TEMPORARY HELP AGENCY REFERRAL CLERK notes. ROM: Right Upper Extremity: Shoulder Flexion WFL. Shoulder abduction WFL. Elbow flexion WFL. Wrist flexion WFL. Opening and closing of hand WFL. Left Upper Extremity: Shoulder Flexion WFL. Shoulder abduction WFL. Elbow flexion WFL. Wrist flexion WFL. Opening and closing of hand WFL. Right Lower Extremity: Hip flexion WFL. Hip abduction WFL. Knee flexion 20 to 90 degrees. Knee extension -20 degrees with empty end feel. Ankle dorsiflexion WFL. Ankle plantarflexion WFL. Left Lower Extremity: Hip flexion WFL. Hip abduction WFL. Knee flexion WFL. Ankle dorsiflexion WFL. Ankle plantarflexion WFL. Strength: Right Upper Extremity: Shoulder flexors 5/5. Shoulder abductors 5/5. Elbow flexors 5/5. Elbow extensors 5/5. Sensory Scientist strong. Left Upper Extremity: Shoulder flexors 5/5. Shoulder abductors 5/5. Elbow flexors 5/5. Elbow extensors 5/5. Sensory Scientist strong. Right Lower Extremity: Hip flexors 4/5. Hip abductors 4/5. Knee flexors 3-/5. Knee extensors 3#-/5. Ankle dorsiflexors 4/5. Ankle plantarflexors 4/5. Left Lower Extremity:Hip flexors 5/5. Hip abductors 5/5. Knee flexors 5/5. Knee extensors 5/5. Ankle dorsiflexors 5/5. Ankle plantarflexors 5/5. Sensation: Intact as to pain and pressure on bilateral lower extremities. Bed Mobility/Transfers: Contact-guard assist Supine to sit independent Sit to stand independent Stand to sit supervision Bed to chair supervision Gait: 100 feet +160 feet of level surface ambulation using front wheeled walker with step step through gait pattern. Decreased darren. Decreased step height on the right LE. Reported achy sensation through the right thigh and hip that subsided with rest. Up-and-down three 4-inch steps and two 6-inch steps while holding onto 1 rail and a single-point cane using step to gait pattern requiring standby assist. Balance: Static Sitting: Normal Dynamic Sitting: Normal Static Standing: Fair Dynamic Standing: Fair Assessment: Jeffery demonstrates improved functional mobility level as evidenced by physical current mobility level and discharge status below. Sai is a 64-year-old female with localized osteoarthritis of the right knee and is status post right total knee arthroplasty on postoperative day 1 upon discharge. Patient continues to present with clinical signs and symptoms consistent with current/admitting diagnoses that have resulted to mobility limitations, gait instability, generalized weakness, and impairment of motor control as demonstrated by the following impairment level findings: 1. Decreased strength to R knee major muscle groups 2. Impaired standing balance 3. Impaired activity tolerance 4. Limitation of joint range of motion in right knee Impairments are continuing to contributing to the following functional limitations: 1. Dependent bed mobility skills 2. Increased dependence with transfers 3. Inability to safely ambulate without assistive device and physical assistance 4. Increase completion time for mobility ADL performance 5. Increased fall risk 6. Inability to negotiate steps alone safely Goals: Goals X 3 days 1. Supine-Sit independent MET 2. Sit-Supine independent MET 3. Sit-Stand independent NOT MET 4. Stand-Sit independent NOT MET 5. Bed-Chair independent NOT MET 6. Chair-Bed independent NOT MET 7. Independent gait on level surface with use of FWW for at least 300 feet without report of pain nor dyspnea NOT MET 8. Independent stair negotiation while holding onto bilateral rails for at least 5 steps without report of pain nor dyspnea NOT MET 9. Independent with home exercise NOT MET program 10. Good static and dynamic standing balance/tolerance NOT MET DISCHARGE RECOMMENDATIONS: Home when medically cleared by orthopedic surgeon. Outpatient PT services in order to facilitate return to premorbid independent level. TREATMENT CODE/TIME: [place] Thank you for the opportunity to participate in the care of this patient. Palak Ramirez PT, DPT, CLT [facility] [place], [place]
== END 2020-04-16 13:07 | disposition home or self-care (01) ==
LOC: PDS 13:06 → MS 17:00 → PDS 23:19
PROVIDERS: Admitting Provider Student in an Organized Health Care Education/Training Program; PCP Family Medicine; Visit Provider Student in an Organized Health Care Education/Training Program
PROC: (CPT 27447; principal; 2020-04-15 12:30)
DX: M17.11 Unilateral primary osteoarthritis, right knee (principal)
CPT/HCPCS: 27447; 76942; 97110; 97162; 97530; NC; G0378; J0690; J1100; J1885; J2250; J2370; J2405

== ENCOUNTER 2020-05-01 12:09 | Outpatient (CLI) | payer MEDICARE, SELFPAY ==
--- NOTE | 2020-05-01 11:30 | DI.RAD_ITS ---
EXAM: XR STANDING ALIGNMENT and XR knee RT one view CLINICAL HISTORY: 1st post op. TECHNIQUE: 2D digital imaging was performed. COMPARISON: CR XR STANDING ALIGNMENT from 08/14/2019 FINDINGS: The hips are unremarkable. The left knee is unremarkable. There is a right total knee replacement. The orthopedic hardware appears in good position. No acute fracture or dislocation is identified. The ankles are well maintained. The right lower extremity measures 87.6 cm. The left lower extremit y measures 89.2 cm. IMPRESSION: DATA REPOSITORY: RADIATION DOSE DELIVERED:
== END 2020-05-01 12:29 ==
PROVIDERS: PCP Family Medicine; Referring Provider Family Medicine; Visit Provider Student in an Organized Health Care Education/Training Program
DX: Z96.651 Presence of right artificial knee joint (principal); Z47.1 Aftercare following joint replacement surgery
CPT/HCPCS: 73560; 77073

== ENCOUNTER → 2020-05-30 10:17 | Outpatient (BNVA) | payer MEDICARE, SELFPAY | PROVIDERS: PCP Family Medicine; Visit Provider Student in an Organized Health Care Education/Training Program | DX: Z96.651 Presence of right artificial knee joint (principal); Z47.1 Aftercare following joint replacement surgery ==

== ENCOUNTER 2020-07-03 15:55 | Emergency (ER) | payer MEDICARE, SELFPAY ==
[2020-07-03] VITALS (9 sets, daily range): BP systolic 123–133; BP diastolic 53–72; PULSE 77–106; RESP 19–24; TEMP 36.3–37; O2SAT 97–100
--- NOTE | 2020-07-03 16:29 | ED.GENADUL_ITS ---
Discharge Plan Disposition Patient Disposition: HOME Condition: Stable Discharge Details Clinical Impression: Acute UTI, Nausea, vomiting, and diarrhea Primary Care Provider: Aurora Mcrae ED Provider: Luciano Calhoun Home Meds and New Rx's Prescriptions: New ondansetron HCl [Zofran] 4 mg tablet 4 mg PO Q8H PRNQty: 10 RF: 0 cephalexin [Keflex] 500 mg capsule 500 mg PO BID Qty: 10 RF: 0 Continued omega-3 fatty acids-fish oil [Fish Oil] 300-1,000 mg capsule 1 cap PO BID RF: 0 Benefiber Healthy Shape 5 gram/7.4 gram powder See Rx Instructions PO .COMPLEX PRNRF: 0 boron citrate 3 mg tablet 3 mg PO DAILY RF: 0 magnesium oxide 500 mg capsule 1,000 mg PO DAILY Qty: 90 RF: 6 levomefolate calcium [L-Methylfolate] 15 mg tablet 15 mg PO DAILY RF: 0 calcium carbonate-vitamin D3 1 EACH tablet 1 tab PO BID RF: 0 cyanocobalamin (vitamin B-12) [Vitamin B-12] 500 MCG tablet 1 tab PO DAILY RF: 0 ascorbic acid (vitamin C) 500 MG tablet 1 tab PO DAILY RF: 0 Multi Complete with Iron 1 EACH tablet 1 tab PO DAILY RF: 0 docusate sodium [Colace] 100 MG capsule 100 mg PO HS RF: 0 loratadine 10 MG tablet 10 mg PO DAILY Qty: 90 RF: 4 triamcinolone acetonide 30 GM ointment 30 gm Topical bid prn Qty: 30 RF: 1 nystatin 60 GM powder 1 bubba Topical BID prn Qty: 60 RF: 11 pravastatin 20 mg tablet 20 mg PO DAILY Qty: 90 RF: 4 dextroamphetamine 10 mg capsule, extended release 10 mg PO DAILY MDD 10 mg Qty: 90 RF: 0 omeprazole 40 mg capsule,delayed release(DR/EC) 40 mg PO DAILY Qty: 90 RF: 4 venlafaxine 75 mg capsule,extended release 24hr 225 mg PO DAILY Qty: 270 RF: 3 pregabalin 150 mg capsule 150 mg PO TID Qty: 90 RF: 2 celecoxib [Celebrex] 200 mg capsule 200 mg PO BID Qty: 60 RF: 0 risperidone 3 mg tablet 3 mg PO HS Qty: 90 RF: 4 bupropion HCl 150 mg tablet extended release 24 hr 150 mg PO QAM Qty: 90 RF: 3 buspirone 30 mg tablet 30 mg PO BID Qty: 180 RF: 4 propranolol 10 mg tablet 10 mg PO BID Qty: 180 RF: 4 clonazepam 0.5 mg tablet 0.25 mg PO BID PRN (Reason: josué) Qty: 30 RF: 3 acetaminophen [Tylenol Extra Strength] 500 mg tablet 500 mg PO Q6H PRNQty: 90 RF: 0 Discharge Instructions Instructions: Urinary Tract Infection in Women (ED), Acute Nausea and Vomiting (ED) Additional Instructions: Zofran and Keflex as directed. [id number] medication as directed for symptomatic control. Plenty of fluids to avoid dehydration. [place] diet, advance as tolerated. Please watch for new or worsening symptoms and return to the ER for any concerns. I do recommend reaching out your primary care provider tomorrow for prompt outpatient reevaluation. Medical Decision Making 65-year-old female with past medical history of depression, GERD, fibromyalgia, hyperlipidemia, anxiety, presented to the ER today reporting ongoing nausea, vomiting, diarrhea, abdominal cramping for the past 3 days or so. She states this all began after initiating penicillin and Tylenol 3 for a left upper dental infection. She stopped taking the medicine on June 29. She states that she has been gassy, belching more than usual, and describes heartburn. She states that after vomiting she has some fleeting chest pain but no other chest pain or shortness of breath. Clinically this certainly appears to be GI related given her age and comorbidities, I do believe obtaining a single EKG and troponin is reasonable. Extremely low suspicion for ACS. She does admit to urinary frequency over the past 24 hours. Will give IV fluid, Zofran, and famotidine. Laboratory values reveal a white blood cell count of 6.43 hemoglobin 14.4 hematocrit 44.9 platelet count 267. Sodium 141 potassium 3.6 BUN 20 creatinine 07 with a GFR greater than. Glucose 99. Magnesium 1.9. Bili 0.5 AST 45 ALT 71. Troponin less than 0.05. Urinalysis reveals 3-5 red cells, 10-20 white cells, many epithelials, moderate bacteria. Patient unable to provide stool sample chest x-ray read by radiology as no acute findings. Upon reassessment she reports that she is asymptomatic. We discussed her laboratory values, urine does appear to be contaminated but given that she has 20 white cells, moderate bacteria, and urinary frequency, I do believe initiating that therapy is reasonable. She was given 500 p.o. Keflex, also p.o. challenged without any difficulty. No diarrhea, vomiting while under my care. Patient is asymptomatic. Again she is unable to provide a stool sample for C. difficile testing. We discussed options, she feels well and is comfortable discharge home at this time. Will provide a prescription for Zofran and Keflex. Recommend that she return immediately to the ER for new or worsening symptoms, otherwise contact her primary care provider tomorrow for prompt outpatient reevaluation. Medical Records Medical records reviewed: Yes I reviewed the patient's medical records. Lab Data Lab results reviewed: Yes I reviewed the patient's lab results. Labs: Laboratory Tests Range/Units 07/03/20 07/03/20 07/03/20 16:55 16:55 18:00 WBC (4.4-10.8) 10^3/uL 6.43 RBC (3.93-5.22) 10^6/uL 5.25 H Hgb (11.2-15.7) g/dL 14.4 Hct (36.0-46.0) % 44.9 MCV (80-95) fL 85.5 MCH (27.0-33.0) pg 27.4 MCHC (32.0-36.0) % 32.1 RDW (11.7-14.6) % 13.1 Plt Count (130-400) 10^3/uL 267 MPV (8.0-11.0) fL 10.4 Immature Gran % 0.3 Neutrophils % 70.2 Lymphocytes % 16.6 Monocytes % 12.1 Eosinophils % 0.5 Basophils % 0.3 Nucleated RBC % % 0 Absolute Neutrophils (1.2-6.7) 10^3/uL 4.51 Absolute Lymphocytes (1.2-3.4) 10^3/uL 1.07 L Absolute Monocytes (0.1-0.8) 10^3/uL 0.78 Absolute Eosinophils (0.0-0.7) 10^3/uL 0.03 Absolute Basophils (0.0-0.2) 10^3/uL 0.02 Sodium (136-145) mmol/L 141 Potassium (3.5-5.1) mmol/L 3.6 Chloride (98-107) mmol/L 102 Carbon Dioxide (21.0-32.0) mmol/L 29.4 Anion Gap (3-11) mmol/L 9.6 BUN (7-18) mg/dL 20 H Creatinine (0.55-1.02) mg/dL 0.67 Estimated GFR/1.73 m2 (mL/min/1.73m2) >= 60.00 Glucose (74-106) mg/dL 99 Calcium (8.5-10.1) mg/dL 9.7 Magnesium (1.8-2.4) mg/dL 1.9 Total Bilirubin (0.2-1.0) mg/dL 0.5 AST (15-37) U/L 45 H ALT (14-59) U/L 71 H Alkaline Phosphatase (46-116) U/L 104 Troponin I (<0.06) ng/mL < 0.05 Total Protein (6.4-8.2) g/dL 8.2 Albumin (3.4-5.0) g/dL 4.1 Urine Color (Yellow) Pascale Urine Clarity (Clear) Clear Urine pH (5-8) 6.0 Ur Specific [place] (1.005-1.025) >= 1.030 H Urine Protein (Negative) mg/dL 30 H Urine Ketones (Negative) mg/dL Negative Urine Blood (Negative) Negative Urine Nitrite (Negative) Negative Urine Bilirubin (Negative) Negative Urine Urobilinogen (Up TO 0.2) EU/dL 0.2 Ur Leukocyte Esterase (Negative) Negative Urine RBC (0-2) HPF 3-5 H Urine WBC (0-5) HPF 10-20 H Ur Epithelial Cells (Negative) HPF Many Urine Crystals Not Applicable Urine Bacteria (Negative) HPF Moderate Urine Mucus (Negative) Moderate Urine Other (Negative) Few transitional Ur Culture Indicated? No/sq. contamination Urine Glucose (Negative) mg/dL Negative ECG Data Attestation: I personally reviewed and interpreted this ECG (s) as follows: Interpretation: Please see official report by Dr. Lopes. Sinus rhythm, ventricular rate of 81. No STEMI. HPI General Mode of arrival: ambulatory . Date/Time Provider Initiated Documentation: 07/03/20 15:57 . Limitations to Documentation: no limitations . Information obtained by: patient . HPI Narrative: This is a 65-year-old female, with past medical history of depression, GERD, hyperlipidemia, low back pain, fibromyalgia, anxiety, complaining of 3-4-day history of diffuse crampy moderate-mild abdominal pain, nausea, vomiting, diarrhea. Denies any coffee- ground emesis. Denies any bright red blood in her vomit. Denies black tarry stools or bright red blood in her stools. She states that on June 23 she developed a left posterior upper dental infection, contact her dentist and was placed on Pen-Vee K and Tylenol 3. Soon after taking these medications she developed the symptoms. She contacted her dentist again, stopped taking the medications on June 29, and is scheduled to be seen by her dental team on Tuesday. She reports increased burping, heartburn, flatulence, generalized fatigue, decreased appetite, and early satiation. Denies recent illness or trauma. Denies headache, neck pain, back pain, shortness of breath, fever, numbness, tingling, weakness. She does report occasional what she describes as fleeting central and left-sided chest pain, nothing really makes it worse or better, seems to be associated with her heartburn. Has taken her regular medications without relief of her symptoms. She reports that the diarrhea is watery and comes and burst. She denies bad food exposure, sick contacts. Related Data Home Medications Medication Instructions Recorded Confirmed Multi Complete with Iron 1 tab PO DAILY tab-cap 09/03/12 07/03/20 ascorbic acid (vitamin C) 1 tab PO DAILY 09/03/12 07/03/20 calcium carbonate-vitamin D3 1 tab PO BID 09/03/12 07/03/20 cyanocobalamin (vitamin B-12) 1 tab PO DAILY 09/03/12 07/03/20 [Vitamin B-12] docusate sodium [Colace] 100 mg PO HS tab-cap 10/19/12 07/03/20 loratadine 10 mg PO DAILY #90 tab-cap 12/02/12 07/03/20 triamcinolone acetonide 30 gm TOPICAL bid prn #30 gm 05/17/14 07/03/20 nystatin 1 bubba TOPICAL BID prn #60 gm 09/21/14 07/03/20 omega-3 fatty acids-fish oil 300 1 cap PO BID 03/22/18 07/03/20 mg-1,000 mg capsule wheat dextrin 5 gram/7.4 gram oral See Rx Instructions PO .COMPLEX 07/13/18 07/03/20 powder PRN gm levomefolate calcium 15 mg tablet 15 mg PO DAILY 04/05/19 07/03/20 pravastatin 20 mg tablet 20 mg PO DAILY #90 tab-cap 04/26/19 07/03/20 boron citrate 3 mg tablet 3 mg PO DAILY tab 05/14/19 07/03/20 magnesium oxide 500 mg capsule 1,000 mg PO DAILY #90 cap 10/17/19 07/03/20 dextroamphetamine 10 mg 10 mg PO DAILY #90 cap MDD 10 mg 04/10/20 07/03/20 capsule,extended release acetaminophen [Tylenol Extra 500 mg PO Q6H PRN #90 tab 04/15/20 07/03/20 Strength] omeprazole 40 mg capsule,delayed 40 mg PO DAILY #90 tab-cap 04/24/20 07/03/20 release venlafaxine 75 mg capsule,extended 225 mg PO DAILY #270 tab-cap 05/12/20 07/03/20 release 24 hr celecoxib 200 mg capsule 200 mg PO BID #60 cap 05/20/20 07/03/20 pregabalin 150 mg capsule 150 mg PO TID #90 cap 05/20/20 07/03/20 risperidone 3 mg tablet 3 mg PO HS #90 tab-cap 05/27/20 07/03/20 bupropion HCl 150 mg 24 hr tablet, 150 mg PO QAM #90 tab 05/30/20 07/03/20 extended release buspirone 30 mg tablet 30 mg PO BID #180 tab 06/03/20 07/03/20 propranolol 10 mg tablet 10 mg PO BID #180 tab-cap 06/10/20 07/03/20 cephalexin [Keflex] 500 mg PO BID #10 cap 07/03/20 clonazepam 0.5 mg tablet 0.25 mg PO BID PRN #30 tab 07/03/20 07/03/20 ondansetron HCl [Zofran] 4 mg PO Q8H PRN #10 tab 07/03/20 Previous Rx's Medication Instructions Recorded pravastatin 20 mg tablet 20 mg PO DAILY #90 tab-cap 04/26/19 magnesium oxide 500 mg capsule 1,000 mg PO DAILY #90 cap 04/22/20 dextroamphetamine 10 mg 10 mg PO DAILY #90 cap MDD 10 mg 04/10/20 capsule,extended release acetaminophen [Tylenol Extra 500 mg PO Q6H PRN #90 tab 04/15/20 Strength] omeprazole 40 mg capsule,delayed 40 mg PO DAILY #90 tab-cap 04/24/20 release venlafaxine 75 mg capsule,extended 225 mg PO DAILY #270 tab-cap 05/12/20 release 24 hr celecoxib 200 mg capsule 200 mg PO BID #60 cap 05/20/20 pregabalin 150 mg capsule 150 mg PO TID #90 cap 05/20/20 risperidone 3 mg tablet 3 mg PO HS #90 tab-cap 05/27/20 bupropion HCl 150 mg 24 hr tablet, 150 mg PO QAM #90 tab 05/30/20 extended release buspirone 30 mg tablet 30 mg PO BID #180 tab 06/03/20 propranolol 10 mg tablet 10 mg PO BID #180 tab-cap 06/10/20 cephalexin [Keflex] 500 mg PO BID #10 cap 07/03/20 clonazepam 0.5 mg tablet 0.25 mg PO BID PRN #30 tab 07/03/20 ondansetron HCl [Zofran] 4 mg PO Q8H PRN #10 tab 07/03/20 Allergies Allergy/AdvReac Type Severity Reaction Status Date / Time atorvastatin AdvReac Severe Exacerbated Verified 07/03/20 16:04 fibromyalgia pain mirtazapine AdvReac Severe exacerbated Unverified 07/03/20 16:04 fibromyalgia symptoms oxycodone AdvReac Severe H/A Verified 07/03/20 16:04 FLUSHING nabumetone AdvReac Intermediate Abdominal Verified 07/03/20 16:04 pain, diarrhea General Stated Complaint: Nausea/Vomit/Diar ROSALIE: 3 Review of Systems Constitutional Constitutional: Reports fatigue, Denies fever(s), Denies headache(s) and Denies weakness Eyes Eyes: Denies change in vision ENT Ears, Nose, Mouth, and Throat: Denies facial pain, Denies headache(s) and Denies sore throat Cardiovascular Cardiovascular: Reports chest pain and Denies dyspnea Respiratory Respiratory: Denies cough and Denies dyspnea Gastrointestinal Gastrointestinal: Reports abdominal pain, Reports belching, Denies melena, Denies hematochezia, Denies coffee ground emesis, Denies constipation, Reports cramping, Reports diarrhea, Reports nausea, Reports vomiting and Denies hematemesis Genitourinary Genitourinary: Denies dysuria and Reports urinary urgency Musculoskeletal Musculoskeletal: Reports back pain (Chronic) and Denies tingling Integumentary/Breasts Skin/Breast: Denies rash Neurologic Neurologic: Denies headache(s), Denies tingling and Denies weakness Endocrine Endocrine: Reports fatigue Hematologic/Lymphatic Hematologic/Lymphatic: Denies easy bleeding and Denies easy bruising [facility] Medical History Anxiety Hicks's palsy Depression Endometrial cancer Fibromyalgia GERD (gastroesophageal reflux disease) Mild cognitive impairment Multiple personality disorder Pt. states currently on medication My alters haven't come out for years Surgical History Colonoscopy - MAC (11/14/17) twice Hysterectomy, Laproscopic (~09/2011) TOTAL Rotator Cuff Repair (08/06/09) DR. LYNCH, right Status post total right knee replacement Family History Mother , AGE 85 Diabetes Essential hypertension Arthritis Dementia Heart disease Hyperlipidemia Anxiety Depression Father , AGE 70 Diabetes Essential hypertension Heart disease Hyperlipidemia Sister Essential hypertension Hyperlipidemia Maternal Grandfather , age 70 Heart disease Paternal Grandfather , age 57 Heart disease Maternal Grandmother , age 81 Heart disease Goiter Paternal Grandmother , age 90 Diabetes Essential hypertension Goiter Heart disease Hyperlipidemia Maternal Aunt Dementia Maternal Aunt Dementia Maternal Aunt Dementia Maternal Aunt Dementia Goiter Son Essential hypertension Social History Smoking/Tobacco Use Status: Never Smoking risk assessment performed?: Yes Alcohol Intake: never Drug use: Never Substance use type: does not use Caregiver/Support person: No Household members: spouse Housing: house Communication Needs: Corrective Lenses Do you need help understanding health information?: Rarely current occupation: HOUSEWIFE Pets and animals: Yes Pets and animals: dog(s) Sexually active: No Do you think of yourself as: straight/heterosexual Current gender identity: female What is your relationship status?: How often do you talk on the phone with friends or family?: twice per week How often do you get together with friends or relatives?: once per week How often do you attend mandaeism or gnosticist services?: decline to answer Do you belong to any clubs or organized social groups?: no Panel score (0-1 are the most socially isolated patients): 2 What type of physical activity do you participate in: none Duration: 15-30 minutes/day Frequency: 3-4 times per week Steph/Nondenominational: Congregation Special steph needs: No Seatbelt use: always Drive intox or ride w/intox otr driver: No Firearms in home: Yes Do you feel safe at home: Yes Do you feel safe in your relationship?: Yes Exam Const General: cooperative, healthy appearing, comfortable and no acute distress Orientation: alert and awake HENMT Head: normal to inspection, normocephalic and atraumatic Face and sinus: normal facial exam Mouth: moist mucous membranes Eyes General: appearance normal, both eyes and all related structures Conjunctivae: conjunctivae normal Sclera: sclerae normal Neck Neck: normal visual inspection, trachea midline and supple Resp Effort & Inspection: normal respiratory effort and able to speak in complete sentences Auscultation: clear to auscultation bilaterally Cardio Rate: regular rate Rhythm: regular rhythm GI Inspection: normal to inspection Palpation: soft, not firm, no guarding, no pulsatile masses and tender (Diffuse mild) with no rebound tenderness Auscultation: normal bowel sounds Back/Spine/Pelvis Back: No back tenderness Skin General skin exam: no rashes or lesions noted Neuro General: patient alert, patient awake, patient oriented x3, moves all extremities and no focal motor deficits Cognition: normal cognition Speech: speech normal Gait: normal gait Sensory Exam: no sensory deficits noted Psych Appearance: grossly normal Mental Status: mental status grossly normal Course Vital Signs Vital signs: Vital Signs Temperature 36.3 C L 07/03/20 15:59 Pulse 106 H 07/03/20 15:59 Respiratory Rate 20 07/03/20 15:59 Blood Pressure 124/72 07/03/20 15:59 Pulse Oximetry 97 07/03/20 15:59 Temperature 36.3 C L 07/03/20 15:59 Temperature Source Skin 07/03/20 15:59 Pulse 106 H 07/03/20 15:59 Respiratory Rate 20 07/03/20 15:59 Respiratory Effort Non-Labored 07/03/20 16:03 Blood Pressure 124/72 07/03/20 15:59 Blood Pressure Position Sitting 07/03/20 15:59 Pulse Oximetry 97 07/03/20 15:59 Oxygen Delivery Method Room Air 07/03/20 15:59 Oxygen Flow Rate 0 07/03/20 15:59 Pain Level 6 07/03/20 15:59
--- NOTE | 2020-07-03 16:30 | RT.EKG_ITS ---
APPROVED REPORT Exam: Resting ECG Patient Location: E HR:81 bpm ECG Measurements Heart Rate 81 AXIS TX 179 P 33 QRSd 90 QRS -43 QT 375 T 43 QTc 437 Conclusion Sinus rhythm.normal P axis Left anterior fascicular block. Left ventricular hypertrophy.. Anterior Q waves
[2020-07-03 17:05] LABS: Abs Immature Grans 0.02 10^3/uL (0.0-0.06); Absolute Basophil Count 0.02 10^3/uL (0.0-0.2); Absolute Eosinophil Count 0.03 10^3/uL (0.0-0.7); Absolute Lymphocyte Count 1.07 10^3/uL (1.2-3.4); Absolute Monocyte Count 0.78 10^3/uL (0.1-0.8); Absolute Neutrophil Count 4.51 10^3/uL (1.2-6.7); Basophils % 0.3; Eosinophils % 0.5; HCT 44.9 % (36.0-46.0); HGB 14.4 g/dL (11.2-15.7); Immature Grans % 0.3; Lymphocytes % 16.6; MCH 27.4 pg (27.0-33.0); MCHC 32.1 % (32.0-36.0); MCV 85.5 fL (80-95); MPV 10.4 fL (8.0-11.0); Monocytes % 12.1; Neutrophils % 70.2; Nucleated RBC 0 %; Platelet Count 267 10^3/uL (130-400); RBC 5.25 10^6/uL (3.93-5.22); RDW 13.1 % (11.7-14.6); RDW-SD 41.1 fL; WBC 6.43 10^3/uL (4.4-10.8)
[2020-07-03] MEDS: Normal Saline 1,000 ML 1000 ML IV (17:05)
[2020-07-03 17:23] LABS: ALT 71 U/L (14-59); AST 45 U/L (15-37); Albumin 4.1 g/dL (3.4-5.0); Alkaline Phosphatase 104 U/L (46-116); Anion Gap 9.6 mmol/L (3-11); BUN 20 mg/dL (7-18); Bilirubin, Total 0.5 mg/dL (0.2-1.0); CO2 29.4 mmol/L (21.0-32.0); CREATININE 0.67 mg/dL (0.55-1.02); Calcium 9.7 mg/dL (8.5-10.1); Chloride 102 mmol/L (98-107); Glucose 99 mg/dL (74-106); Magnesium 1.9 mg/dL (1.8-2.4); Potassium 3.6 mmol/L (3.5-5.1); Sodium 141 mmol/L (136-145); Total Protein 8.2 g/dL (6.4-8.2); Troponin I < 0.05 ng/mL (<0.06)
--- NOTE | 2020-07-03 17:27 | DI.RAD_ITS ---
EXAM: XR CHEST 2V PA LATERAL CLINICAL HISTORY: pain TECHNIQUE: 2D digital imaging was performed. COMPARISON: CR XR CHEST 2V PA LATERAL from 10/26/2019 FINDINGS: MEDIASTINUM: Normal. HEART: Normal. PULMONARY VASCULATURE: Normal. LUNGS: Clear. PLEURAL SPACE: No pleural effusion or pneumothorax. BONE:Within normal limits for the patient's age. Thoracolumbar scoliosis. OTHER FINDINGS:Poor inspiratory effort. IMPRESSION: No acute pulmonary findings. DATA REPOSITORY: RADIATION DOSE DELIVERED:
[2020-07-03] MEDS: Ondansetron 4 MG/2 ML VIAL IVP (17:31)
[2020-07-03] MEDS: Normal Saline Flush 10 ML SYR IVP (17:31)
--- NOTE | 2020-07-03 17:36 | DI.VRAD_ITS ---
PROCEDURE INFORMATION: Exam: XR Chest, 2 Views Exam date and time: 07/03/2020 4:35 PM Age: 65 years old Clinical indication: Other: Neausea, vomitting TECHNIQUE: Imaging protocol: XR of the chest Views: 2 views. COMPARISON: CR XR CHEST 2V PA LATERAL 10/26/2019 3:20 PM FINDINGS: Lungs: Unremarkable. No consolidation. Pleural space: Unremarkable. No pleural effusion. No pneumothorax. Heart/Mediastinum: Unremarkable. No cardiomegaly. Bones/joints: Degenerative arthritis in the spine. Thoracolumbar scoliosis. Other findings: Shallow inspiration. IMPRESSION: No acute findings. Dictated and Authenticated by: Prela Rocha MD. Ordering:CASI Wolf MD
[2020-07-03 18:29] LABS: Bilirubin Negative (Negative); Blood Negative (Negative); Clarity Clear (Clear); Glucose Negative (Negative); Ketones Negative (Negative); Leukocyte Esterase Negative (Negative); Nitrite Negative (Negative); Specific Gravity >= 1.030 (1.005-1.025); Urobilinogen 0.2 EU/dL (Up TO 0.2)
[2020-07-03] MEDS: FAMOTIDINE 20 MG/50 ML BAG 200 MG IVPB (18:37)
[2020-07-03 18:41] LABS: Bacteria Moderate HPF (Negative); C & S Indicated? No/Sq. Contamination; Epithelial Cells Many HPF (Negative); Mucus Moderate (Negative); Other Cells Few Transitional (Negative)
[2020-07-03] MEDS: Cephalexin 500 MG CAP PO (19:20)
== END 2020-07-03 19:43 | disposition home or self-care (01) ==
PROVIDERS: Emergency Provider Physician Assistant; PCP Family Medicine
DX: N39.0 Urinary tract infection, site not specified (principal); R11.2 Nausea with vomiting, unspecified; R19.7 Diarrhea, unspecified
CPT/HCPCS: 36415; 80053; 87493; 93005; 96361; 96365; 96375; 99285; 71046; 81003; 81015; 83735; 84484; 85025; 93010; J2405

== ENCOUNTER → 2020-07-11 10:09 | Outpatient (BNVA) | payer MEDICARE, SELFPAY | PROVIDERS: PCP Family Medicine; Referring Provider Family Medicine; Visit Provider Student in an Organized Health Care Education/Training Program | DX: Z96.651 Presence of right artificial knee joint (principal); Z47.1 Aftercare following joint replacement surgery; M70.61 Trochanteric bursitis, right hip ==

== ENCOUNTER → 2020-07-28 08:25 | Outpatient (BNVA) | payer MEDICARE, SELFPAY | PROVIDERS: PCP Family Medicine; Referring Provider Family Medicine; Visit Provider Physician Assistant | DX: Z47.1 Aftercare following joint replacement surgery (principal); Z96.651 Presence of right artificial knee joint; M70.61 Trochanteric bursitis, right hip | CPT/HCPCS: 99213 ==

== ENCOUNTER 2020-07-31 04:00 | Outpatient (CLI) | payer MEDICARE, SELFPAY ==
[2020-07-31 12:18] LABS: C-Reactive Protein 0.18 mg/dL (0.0-0.3)
[2020-08-01 07:41] LABS: ESR 9 mm/hr (<30)
== END 2020-07-31 04:01 | disposition home or self-care (01) ==
LOC: LBO 04:00
PROVIDERS: PCP Family Medicine; Visit Provider Student in an Organized Health Care Education/Training Program
DX: M25.561 Pain in right knee (principal); Z96.651 Presence of right artificial knee joint; M70.61 Trochanteric bursitis, right hip
CPT/HCPCS: 36415; 85652; 86140

== ENCOUNTER → 2020-08-11 08:39 | Outpatient (BNVA) | payer MEDICARE, SELFPAY | PROVIDERS: PCP Family Medicine; Referring Provider Family Medicine; Visit Provider Nurse Practitioner Adult Health | DX: G31.84 Mild cognitive impairment of uncertain or unknown etiology (principal); G89.29 Other chronic pain | CPT/HCPCS: 99212; 99443 ==

== ENCOUNTER 2020-08-22 01:45 | Outpatient (CLI) | payer MEDICARE, SELFPAY ==
[2020-08-22 11:02] LABS: Source Nasal/Nares
[2020-08-22 15:14] LABS: COVID-19 PCR Negative (Negative)
== END 2020-08-22 01:46 | disposition home or self-care (01) ==
LOC: LBO 01:45
PROVIDERS: PCP Family Medicine; Visit Provider Student in an Organized Health Care Education/Training Program
DX: T84.82XA Fibrosis due to internal orthopedic prosthetic devices, implants and grafts, initial encounter (principal); Z96.651 Presence of right artificial knee joint
CPT/HCPCS: 99214; U0003

== ENCOUNTER 2020-08-27 08:58 | Day surgery (SDC) | payer MEDICARE, SELFPAY ==
[2020-08-27] VITALS (9 sets, daily range): BP systolic 91–138; BP diastolic 42–76; PULSE 59–76; RESP 13–18; TEMP 36.1–36.5; O2SAT 90–100
[2020-08-27] MEDS: Gabapentin 300 MG CAP PO (09:32)
[2020-08-27] MEDS: Celecoxib 200 MG CAP 400 MG PO (09:32)
[2020-08-27] MEDS: Acetaminophen 500 MG TAB 1000 MG PO (09:33)
[2020-08-27] MEDS: Lactated Ringers 1,000 ML 80 ML IV (09:45)
--- NOTE | 2020-08-27 10:16 | W.PM.DSUDISC ---
Discharge Plan Disposition Patient Disposition: HOME Condition: Stable Discharge Details Reason For Visit: Right Knee Arthroscopic Synovectomy Attending Provider: Reggie Shin Primary Care Provider: Aurora Mcrae Home Meds and New Rx's Prescriptions: New hydrocodone-acetaminophen 5-325 mg tablet 1 tab PO Q6H PRNQty: 5 RF: 0 Continued omega-3 fatty acids-fish oil [Fish Oil] 300-1,000 mg capsule 1 cap PO BID RF: 0 Benefiber Healthy Shape 5 gram/7.4 gram powder See Rx Instructions PO .COMPLEX PRNRF: 0 boron citrate 3 mg tablet 3 mg PO DAILY RF: 0 magnesium oxide 500 mg capsule 1,000 mg PO DAILY Qty: 90 RF: 6 levomefolate calcium [L-Methylfolate] 15 mg tablet 15 mg PO DAILY RF: 0 calcium carbonate-vitamin D3 1 EACH tablet 1 tab PO BID RF: 0 cyanocobalamin (vitamin B-12) [Vitamin B-12] 500 MCG tablet 1 tab PO DAILY RF: 0 ascorbic acid (vitamin C) 500 MG tablet 1 tab PO DAILY RF: 0 Multi Complete with Iron 1 EACH tablet 1 tab PO DAILY RF: 0 docusate sodium [Colace] 100 MG capsule 100 mg PO HS RF: 0 loratadine 10 MG tablet 10 mg PO DAILY Qty: 90 RF: 4 triamcinolone acetonide 30 GM ointment 30 gm Topical bid prn Qty: 30 RF: 1 nystatin 60 GM powder 1 bubba Topical BID prn Qty: 60 RF: 11 omeprazole 40 mg capsule,delayed release(DR/EC) 40 mg PO DAILY Qty: 90 RF: 4 venlafaxine 75 mg capsule,extended release 24hr 225 mg PO DAILY Qty: 270 RF: 3 pregabalin 150 mg capsule 150 mg PO TID Qty: 90 RF: 2 risperidone 3 mg tablet 3 mg PO HS Qty: 90 RF: 4 bupropion HCl 150 mg tablet extended release 24 hr 150 mg PO QAM Qty: 90 RF: 3 buspirone 30 mg tablet 30 mg PO BID Qty: 180 RF: 4 propranolol 10 mg tablet 10 mg PO BID Qty: 180 RF: 4 clonazepam 0.5 mg tablet 0.25 mg PO BID PRN (Reason: josué) Qty: 30 RF: 3 celecoxib [Celebrex] 200 mg capsule 200 mg PO BID Qty: 60 RF: 2 pravastatin 20 mg tablet 20 mg PO DAILY Qty: 90 RF: 4 dextroamphetamine 10 mg capsule, extended release 10 mg PO DAILY MDD 10 mg Qty: 90 RF: 0 acetaminophen [Tylenol Extra Strength] 500 mg tablet 500 mg PO Q6H PRNQty: 90 RF: 0 Discharge Instructions Stand Alone Forms: Kip Knee Arthroscopy Referrals: Reggie Shin MD [ [facility] STAFF PHYSICIAN] - Equipment/Supplies: Walker Activity:: Activity as Tolerated Remove Dressings/Wound Care:: 72 hours Shower/Bathe:: 72 hours Diet:: As Tolerated Discharge Orders Discharge Orders: Discharge Order (Routine); Ordered 08/27/20 Ordered By: Alanna Toussaint DS: Diagnosis Discharge Diagnosis (1) Arthrofibrosis of total knee arthroplasty: Status: Acute
[2020-08-27] MEDS: ceFAZolin 2 GM/50 ML BAG IVPB (10:34)
[2020-08-27] MEDS: Bupivacaine 0.5% Pres-Free 30 ML VIAL (11:10)
[2020-08-27] MEDS: HYDROcodone 5/Acetaminophen 325 TAB PO (12:49)
--- NOTE | 2020-08-28 06:36 | W.PM.OP ---
Date of service: 08/27/20 Time of Service: 11:36 Operative Note Operative Note DATE OF PROCEDURE: 08/28/20 PRE-OP DIAGNOSIS: Arthrofibrosis and Pain of Knee Replacement - RIGHT POST-OP DIAGNOSIS: same PROCEDURE: Arthroscopic Synovectomy of 3 Compartments with Manipulation -right knee SURGEON: Reggie Shin ANESTHESIA TYPE: General LMA/ETT Refer to Anesthesia Record ESTIMATED BLOOD LOSS: 0 PATHOLOGY: none sent COMPLICATIONS: None Patient was transported to: PACU Patient's condition: stable Indications: I have seen Jeffery in clinic for symptoms of arthrofibrosis of the knee following knee replacement surgery. There is also concerns about possible popliteal tendinitis or impingement with posterior lateral based pain. Nonoperative measures were exhausted but disability due to lack of motion and pain persisted. I discussed knee arthroscopy with synovectomy with maniuplation with the patient. I reviewed the risks of the procedure to include, but not limited to, bleeding, infection, pain, continued stiffness, recurrence, blood clot. Despite these risks, the patient elected to proceed. Findings: Preoperative Range of Motion: Flexion: 100 Extension:8 Postoperative Range of Motion: Flexion: 120 Extension:5 Procedure Description: Jeffery was greeted in the preoperative holding area where the correct side was identified and marked. The consent was reviewed with the patient and signed. The history and physical was updated. All questions were answered. Luz was taken back to the operating room. The patient was placed into the supine position on the operating room table. All bony prominences were well padded. Prophylactic antibiotics in the form of Cefazolin were administered. Preoperative range of motion was assessed as 8-100. The right leg was then prepped with Chloraprep and draped in a standard fashion with stockinette and extremity drape. A timeout to confirm correct identity, side and site, procedure, allergies, anesthesia, and medical concerns was performed. The leg was placed into a pneumatic leg graves, [id number]. A standard lateral portal was made at the lateral border of the patella tendon in line with the inferior pole of the patella, soft spot. The skin and deep tissue was incised sharply and the blunt trochar was inserted atraumatically. At this point had visualization of the femoral component. A superolateral portal was then established with spinal needle localization just superior and lateral to the patella. A knife was taken down through the skin and soft tissue to enter the knee joint. Starting in the superior compartment above the femoral component and anterior to the femur I released all scarring between the anterior femoral synovium and the overlying extensor mechanism. This was taken through all of any noticeable scar tissue until the superior patellar pouch was fully released and mobile. This resection was carried out mostly with electrocautery as well as shaver. Once this was released fully from lateral to medial superiorly I then continue working down the lateral gutter. All scar tissue in the lateral gutter was released so there is normal space and movement between the capsular tissues and the edge of the femoral component and femur. This was taken down through the lateral gutter such that I was able to identify the polyethylene to its posterior corner. Once again, all scar tissue in this area was resected so the polyethylene was easily visible and there is no interposed tissue in the back or the polyethylene was identified. I spent extra time in this lateral gutter working although around until I could see the posterior edge of the femoral component and the polyethylene. With the scope sitting in the lateral gutter I then brought the knee up in the flexion. There is no notable popliteal impingement. There was some excess scar tissue which seemed interposed itself through flexion. Therefore, I continued with the dissection laterally removing any scar tissue and gently releasing some of the popliteal tendon only slightly and resecting the scar tissue on top of it as well. Flexion was then repeated with direct visualization and did not show any interposition of tissue at this time. There is no loose pieces of bone or cement. I then continued to work anteriorly. To continue the synovectomy from the lateral compartment to the anterior compartment into the medial compartment, I placed a medial portal under spinal needle localization. Once this was in place it became another working portal and I continued the synovectomy through the anterior compartment to the medial compartment. Once again, I freed up the medial gutter so I was able to visualize the polyethylene from the anterior and posterior margins. There is no interposed tissue after full synovectomy was performed. Adhesions between the capsule and the femur were released. This was continued up the medial gutter until it met up with the releases performed previously in the superior compartment. Any remnant scar tissue from around the patella was then removed with a shaver and electrocautery. The arthroscope was brought back into the suprapatellar pouch and the leg was in full extension. The knee was thoroughly irrigated with the arthroscopic fluid on high flow and pressure. Inflow was stopped and excess fluid was removed. The leg was removed from the spider leg graves and manipulation was performed. I first push the knee into flexion and was able to obtain 120 degrees. I then worked the knee into extension, slowly applying an anterior to posterior directed pressure with support of the knee and no significant lever arm. This was cycled multiple times until I was able to obtain extension of 5 degrees. The wounds were closed with 4-0 Nylon. 0.25% bupivacaine was injected around the portal sites and into the knee. The wounds were dressed with Xeroform, 4x4 gauze, ABD pad, Kerlix and an JIGNA wrap. A cryo-cuff was applied. The patient tolerated the procedure well and was returned to the Same Day Surgery area in a stable condition suffering no known complication..
== END 2020-08-27 14:22 | disposition home or self-care (01) ==
PROVIDERS: PCP Family Medicine; Visit Provider Student in an Organized Health Care Education/Training Program
PROC: (CPT 29870; principal; 2020-08-27 10:00)
DX: T84.82XA Fibrosis due to internal orthopedic prosthetic devices, implants and grafts, initial encounter (principal); I10 Essential (primary) hypertension; E78.5 Hyperlipidemia, unspecified; E55.9 Vitamin D deficiency, unspecified
CPT/HCPCS: 29876; 27570; J0690; J1885; J2001; J2405

== ENCOUNTER → 2020-09-08 09:58 | Outpatient (BNVA) | payer MEDICARE, SELFPAY | PROVIDERS: PCP Family Medicine; Referring Provider Family Medicine; Visit Provider Physician Assistant Surgical | DX: Z47.89 Encounter for other orthopedic aftercare (principal); T84.82XD Fibrosis due to internal orthopedic prosthetic devices, implants and grafts, subsequent encounter; Z96.651 Presence of right artificial knee joint ==

== ENCOUNTER → 2020-10-06 10:14 | Outpatient (BNVA) | payer MEDICARE, SELFPAY | PROVIDERS: PCP Family Medicine; Referring Provider Family Medicine; Visit Provider Student in an Organized Health Care Education/Training Program | DX: Z47.89 Encounter for other orthopedic aftercare (principal); T84.82XA Fibrosis due to internal orthopedic prosthetic devices, implants and grafts, initial encounter; M76.891 Other specified enthesopathies of right lower limb, excluding foot; Z96.651 Presence of right artificial knee joint ==

== ENCOUNTER 2020-11-27 00:46 | Outpatient (CLI) | payer MEDICARE, SELFPAY ==
--- NOTE | 2020-11-27 08:00 | DI.MAMMO_ITS ---
Exam(s) MAMMO SCREENING EXAM: MAMMO SCREENING CLINICAL HISTORY: screening,Z12.39 TECHNIQUE: Bilateral full field digital CC and MLO mammographic images were obtained with 3D tomosyn thesis and utilizing computer aided detection (CAD). COMPARISON: Available for comparison. FINDINGS: Masses/Architectural Distortion: There is increased prominence of an area of asymmetric breast tissue in the inferior retroareolar region of the left breast on the MLO view. Microcalcifications: No suspicious pleomorphic-type are seen. Skin Thickening/Nipple Retraction: None. IMPRESSION: 1. Area of asymmetric breast tissue inferiorly in the retroareolar region of the left breast. 2. This area should be further evaluated with a spot compression view. Ultrasound may be indicated at that time. BI-RADS Category 0 - Assessment Incomplete: Need additional imaging evaluation Breast Density - Category B - Scattered areas of fibroglandular density Breast density category C or D implies that the patient has dense breast tissue. Dense breast tissue is very common and is not abnormal but dense breast tissue can make it harder to find cancer on a ma mmogram. Also, dense breast tissue may increase their breast cancer risk. This information about the result of the mammogram report was provided to the patient to raise their awareness. Use this report when you speak with the patient about their risks for breast cancer, which includes their family hist ory. At that time, you may recommend for more screening tests (Ultrasound or MRI) as they might be us eful based on their risk. A negative radiographic report should not delay biopsy if a dominant or clinically suspicious mass is present. Up to ten percent of cancers are not identified on mammography. A negative report may reinforce clinical impression. Adenosis and dense breasts may obscure an underlying neoplasm. False positive reports average 6 to 10%. Patient will receive a letter notifying them of these results.
== END 2020-11-27 01:06 ==
PROVIDERS: PCP Family Medicine; Visit Provider Family Medicine
DX: Z12.31 Encounter for screening mammogram for malignant neoplasm of breast (principal); R92.8 Other abnormal and inconclusive findings on diagnostic imaging of breast
CPT/HCPCS: 77063; 77067

== ENCOUNTER 2020-12-12 01:25 | Outpatient (CLI) | payer MEDICARE, SELFPAY ==
--- NOTE | 2020-12-12 | DI.US_ITS ---
Exam(s) MG MAMMO SCREEN CALL BACK UNI US BREAST LT LIMITED EXAM: MG MAMMO SCREEN CALL BACK UNI and U/S breast LT limited CLINICAL HISTORY: F/U MAMMO, LT BREAST ASYMMETRY. TECHNIQUE: Craniocaudal and mediolateral oblique Full Field Digital Mammography views of the left br east with Computer Aided Diagnosis followed by Tomosynthesis and left breast ultrasound. COMPARISON: Comparison is made with prior examinations. FINDINGS: Mammography/Tomosynthesis: Masses/Architectural Distortion: None seen. Microcalcifictions: No suspicious pleomorphic-type are seen. Skin Thickening/Nipple Retraction: None. Left breast US: Echotexture: Normal appearance of the glandular tissue. Shadowing: No suspicious foci. Cyst: None. Solid lesions: None seen. Ductal dilation: None. IMPRESSION: 1. No evidence of malignancy is noted. 2. Unless there is more urgent need, follow-up screening mammography is recommended, as per [employer] guidelines. 3. The findings were discussed with the patient on the date of the examination. BI-RADS Category 1 - Negative Breast Density - Category B - Scattered areas of fibroglandular density Breast density Category C or D implies that the patient has dense breast tissue. Dense breast tissue can make it harder to find cancer on a mammogram. Dense breast tissue is also associated with an incr eased risk of breast cancer. This information about the result of the mammogram report was provided to the patient to raise their awareness. Use this report when you speak with the patient about their risks for breast cancer, which includes their family history. At that time, you may recommend additional screening tests (Ultrasoun d or MRI) as these tests may add significant information. A negative radiographic report should not delay biopsy if a dominant or clinically suspicious mass is present. Up to ten percent of cancers are not identified on mammography. A negative report may reinforce clinical impression. Adenosis and dense breasts may obscure an underlying neoplasm. False positive reports average 6 to 10%. Patient will receive a letter notifying them of these results.
== END 2020-12-12 01:45 ==
PROVIDERS: PCP Family Medicine; Visit Provider Family Medicine
DX: Z12.31 Encounter for screening mammogram for malignant neoplasm of breast (principal); R92.8 Other abnormal and inconclusive findings on diagnostic imaging of breast; N64.89 Other specified disorders of breast
CPT/HCPCS: 76642; 77063; 77067

== ENCOUNTER 2021-02-23 14:41 | Outpatient (CLI) | payer MEDICARE, SELFPAY ==
--- NOTE | 2021-02-23 14:30 | DI.RAD_ITS ---
Exam(s) XR KNEE RT 2V AP,LAT EXAM: XR KNEE RT 2V AP,LAT CLINICAL HISTORY: right knee pain. TECHNIQUE: 2D digital imaging was performed. COMPARISON: CR XR KNEE RT 1V from 05/01/2020 CR XR STANDING ALIGNMENT from 05/01/2020 CR XR STANDING ALIGNMENT from 05/01/2020 FINDINGS: BONES: No acute fracture is present. No bony destructive lesion is seen. JOINTS: The knee is normally aligned. There is again seen a right total knee replacement. Orthopedic hardware appears in good position. No evidence of loosening or infection is seen. SOFT TISSUE: Normal. IMPRESSION: Stable right TKR. DATA REPOSITORY: RADIATION DOSE DELIVERED:
--- NOTE | 2021-02-23 14:30 | DI.RAD_ITS ---
Exam(s) XR HIP RT COMPLETE AP PELVIS EXAM: XR HIP RT COMPLETE AP PELVIS CLINICAL HISTORY: right hip pain. TECHNIQUE: 2D digital imaging was performed. COMPARISON: CR RT HIP COMPLETE AP PELVIS from 10/04/2014 FINDINGS: BONES: No acute fracture is present. No bony destructive lesion is seen. JOINTS: No dislocation present. Mild degenerative changes are seen in the hips. SOFT TISSUE: Normal. IMPRESSION: Mild degenerative changes of the right hip. Delete DATA REPOSITORY: RADIATION DOSE DELIVERED:
== END 2021-02-23 14:42 | disposition home or self-care (01) ==
LOC: DIORS 14:42
PROVIDERS: PCP Family Medicine; Referring Provider Family Medicine; Visit Provider Student in an Organized Health Care Education/Training Program
DX: T84.82XA Fibrosis due to internal orthopedic prosthetic devices, implants and grafts, initial encounter (principal); M25.551 Pain in right hip; T84.84XA Pain due to internal orthopedic prosthetic devices, implants and grafts, initial encounter; Z96.651 Presence of right artificial knee joint; M25.561 Pain in right knee
CPT/HCPCS: 99213; 73502; 73560

== ENCOUNTER 2021-02-25 01:18 | Outpatient (CLI) | payer MEDICARE, SELFPAY ==
--- NOTE | 2021-02-25 08:30 | DI.US_ITS ---
Exam(s) US LOWER EXTREMITY VENOUS RT EXAM: US LOWER EXTREMITY VENOUS RT CLINICAL HISTORY: ? DVT RLE, painful total knee rt, T84.84XA, Z96.651, M79.604 rt leg pain TECHNIQUE: Right lower extremity venous ultrasound performed using grayscale, color-flow, and spectr al Doppler analysis. COMPARISON: No exams were available for comparison FINDINGS: The right common femoral, femoral and popliteal veins demonstrate normal compressibility, augmentatio n, and color Doppler. The posterior tibial veins are patent. The saphenofemoral junction is unremark able. There is no evidence of a Fisher cyst. The soft tissues are unremarkable. IMPRESSION: No DVT. DATA REPOSITORY:
== END 2021-02-25 01:38 ==
PROVIDERS: PCP Family Medicine; Visit Provider Student in an Organized Health Care Education/Training Program
DX: M79.604 Pain in right leg (principal); T84.84XA Pain due to internal orthopedic prosthetic devices, implants and grafts, initial encounter; Z96.651 Presence of right artificial knee joint
CPT/HCPCS: 36415; 80053; 80061; 85652; 86140; 93971

== ENCOUNTER 2021-02-25 03:03 | Outpatient (CLI) | payer MEDICARE, SELFPAY ==
[2021-02-25 15:26] LABS: ESR 5 mm/hr (0-30)
[2021-02-25 16:22] LABS: ALT 31 U/L (14-59); AST 23 U/L (15-37); Albumin 4.4 g/dL (3.4-5.0); Alkaline Phosphatase 88 U/L (46-116); Anion Gap 6.6 mmol/L (3-11); BUN 12 mg/dL (7-18); Bilirubin, Total 0.4 mg/dL (0.2-1.0); C-Reactive Protein 0.16 mg/dL (0.0-0.3); CO2 31.4 mmol/L (21.0-32.0); CREATININE 0.8 mg/dL (0.55-1.02); Calcium 9.7 mg/dL (8.5-10.1); Chloride 106 mmol/L (98-107); Glucose 105 mg/dL (74-106); Potassium 4.5 mmol/L (3.5-5.1); Sodium 144 mmol/L (136-145); Total Protein 7.7 g/dL (6.4-8.2)
[2021-02-25 16:33] LABS: Calculated LDL 90 mg/dL (<100); Cholesterol 187 mg/dL (<200); HDL Cholesterol 83 mg/dL (40-60); Triglyceride 73 mg/dL (<150)
== END 2021-02-25 03:04 | disposition home or self-care (01) ==
PROVIDERS: Student in an Organized Health Care Education/Training Program; PCP Family Medicine; Visit Provider Physician Assistant
DX: E78.5 Hyperlipidemia, unspecified (principal); T84.82XA Fibrosis due to internal orthopedic prosthetic devices, implants and grafts, initial encounter; Z96.651 Presence of right artificial knee joint
CPT/HCPCS: 36415; 80053; 80061; 85652; 86140

== ENCOUNTER 2021-03-03 01:15 | Outpatient (CLI) | payer MEDICARE, SELFPAY ==
--- NOTE | 2021-03-03 06:45 | DI.CT_ITS ---
Exam(s) CT LOWER EXTREMITY RT WO EXAM: CT LOWER EXTREMITY RT WO CLINICAL HISTORY: RT PAINFUL TOTAL KNEE,ARTHROFIBROISIS,Z96.651,T84.84XA,T84.82XA. TECHNIQUE: Imaging Protocol: Axial computed tomography images with coronal and sagittal reformatted images were created and reviewed. CONTRAST MATERIAL: Noncontrast COMPARISON: CR XR KNEE RT 2V AP,LAT from 02/23/2021 CR XR KNEE RT 2V AP,LAT from 02/23/2021 FINDINGS: A total knee prosthesis is seen. This creates artifact an obscures visualization are of the adjacent bone. There is no evidence of fracture or destructive bony lesion. There is no gross evidence of l ucency adjacent to the prosthesis. Small calcifications are seen near the superior aspect of the pat addis and at the quadriceps insertion. There is a small joint effusion. There is minimal anterior so ft tissue edema or scar. No Fisher's cyst or hematoma is visible. IMPRESSION: Unremarkable total knee prosthesis as visualized. Minimal joint effusion. RADIATION DOSE DELIVERED: 364.27mGy.cm Total DLP DATA REPOSITORY: All CT scans at this facility are submitted to the National Radiology Data Registry (NRDR) Dose Index Registry (DIR) with the [employer] (A[employer]). RADIATION OPTIMIZATION: All CT scans at this facility use at least one of these dose optimization te chniques: automated exposure control; mA and/or kV adjustment per patient size (includes targeted exa ms where dose is matched to clinical indication); or iterative reconstruction.
== END 2021-03-03 01:35 ==
PROVIDERS: PCP Family Medicine; Visit Provider Student in an Organized Health Care Education/Training Program
DX: T84.82XA Fibrosis due to internal orthopedic prosthetic devices, implants and grafts, initial encounter (principal); T84.84XA Pain due to internal orthopedic prosthetic devices, implants and grafts, initial encounter; Z96.651 Presence of right artificial knee joint
CPT/HCPCS: 73700

== ENCOUNTER 2021-10-01 02:06 | Outpatient (CLI) | payer MEDICARE, SELFPAY ==
[2021-10-01 13:46] LABS: HCT 43.9 % (36.0-46.0); HGB 13.6 g/dL (11.2-15.7); MCH 27.4 pg (27.0-33.0); MCV 88.3 fL (80-95); MPV 10.6 fL (8.0-11.0); Platelet Count 218 10^3/uL (130-400); RBC 4.97 10^6/uL (3.93-5.22); RDW 14.3 % (11.7-14.6); RDW-SD 46.5 fL; WBC 4.99 10^3/uL (4.4-10.8)
[2021-10-01 14:30] LABS: TSH (W/Ref FT4) 1.59 uIU/mL (0.36-3.74)
== END 2021-10-01 02:07 | disposition home or self-care (01) ==
LOC: LBO 02:06
PROVIDERS: Physician Assistant; PCP Nurse Practitioner; Visit Provider Nurse Practitioner
DX: F32.9 Major depressive disorder, single episode, unspecified (principal); R41.3 Other amnesia; R94.5 Abnormal results of liver function studies
CPT/HCPCS: 36415; 85027; 84443

== ENCOUNTER → 2022-01-06 10:57 | Outpatient (BNVA) | payer MEDICARE, SELFPAY | PROVIDERS: PCP Nurse Practitioner; Referring Provider Nurse Practitioner; Visit Provider Nurse Practitioner Adult Health | DX: F39 Unspecified mood [affective] disorder (principal); G31.84 Mild cognitive impairment of uncertain or unknown etiology | CPT/HCPCS: 99213 ==

== ENCOUNTER 2022-01-08 12:20 | Outpatient (REF) | payer MEDICARE, SELFPAY ==
[2022-01-14 03:59] LABS: 2-OH-Ethyl-Flurazepam Negative ng/mL (Cutoff: 10); 7-NH-Clonazepam 52 ng/mL (Cutoff: 10); 7-NH-Flunitrazepam Negative ng/mL (Cutoff: 10); Alpha OH-Alprazolam Negative ng/mL (Cutoff: 10); Alpha-OH Midazolam Negative ng/mL (Cutoff: 10); Alpha-OH-Triazolam Negative ng/mL (Cutoff: 10); Alprazolam Negative ng/mL (Cutoff: 10); Benzodiazepines Interpretation Positive.; Chlordiazepoxide Negative ng/mL (Cutoff: 10); Clobazam Negative ng/mL (Cutoff: 10); Clonazepam Negative ng/mL (Cutoff: 10); Diazepam Negative ng/mL (Cutoff: 10); Flurazepam Negative ng/mL (Cutoff: 10); Lorazepam Negative ng/mL (Cutoff: 10); Midazolam Negative ng/mL (Cutoff: 10); N-Desmethylclobazam Negative ng/mL (Cutoff: 10); Prazepam Negative ng/mL (Cutoff: 10); Temazepam Negative ng/mL (Cutoff: 10); Triazolam Negative ng/mL (Cutoff: 10); Zolpidem Carboxylic acid Negative ng/mL (Cutoff: 10)
== END 2022-01-08 12:21 | disposition home or self-care (01) ==
LOC: LBN 12:20
PROVIDERS: PCP Nurse Practitioner; Visit Provider Nurse Practitioner
DX: M79.7 Fibromyalgia (principal); R82.5 Elevated urine levels of drugs, medicaments and biological substances
CPT/HCPCS: 80346

== ENCOUNTER 2022-01-22 01:08 | Outpatient (CLI) | payer MEDICARE, SELFPAY ==
[2022-01-22 12:59] LABS: Hemoglobin A1C 5.6 % (<5.7)
[2022-01-22 13:01] LABS: Calculated LDL 86 mg/dL (<100); Cholesterol 179 mg/dL (<200); HDL Cholesterol 73 mg/dL (40-60); Triglyceride 102 mg/dL (<150)
== END 2022-01-22 01:09 | disposition home or self-care (01) ==
LOC: LOS 01:08
PROVIDERS: PCP Nurse Practitioner; Visit Provider Nurse Practitioner
DX: E78.5 Hyperlipidemia, unspecified (principal); R73.09 Other abnormal glucose
CPT/HCPCS: 36415; 80061; 83036

== ENCOUNTER → 2022-02-09 00:59 | Outpatient (CLI) | payer MEDICARE, SELFPAY ==
--- NOTE | 2022-02-09 15:22 | DI.US_ITS ---
APPROVED REPORT EXAM: Comprehensive 2D, Doppler, and color-flow Echocardiogram Patient Location: [facility] Consultant: Yara Gardner RDCS (AE) Indications: Murmur Other Information Study Quality: Adequate Conclusion Normal left ventricular wall thickness and chamber size. Estimated ejection fraction is 60%. Wall m otion is normal Normal right ventricular size and systolic function Both atria are normal in size The aortic valve is sclerotic. Number of leaflets could not be accurately determined. There is no h emodynamically significant aortic stenosis, no aortic regurgitation Normal mitral valve with mild regurgitation Estimated right ventricular systolic pressure is 29 mmHg Wall motion Left Ventricle The left ventricle is normal size. The left ventricular systolic function is normal. The left ventric ular ejection fraction is within the normal range. There is normal left ventricular wall thickness. T here is normal LV segmental wall motion. There is no ventricular septal defect visualized. LVEF is 59 %. Right Ventricle The right ventricle is normal size. The right ventricular systolic function is normal. The RVSP is 28 .9 mmHg. Atria The left atrium size is normal. The right atrium size is normal. The interatrial septum is intact wit h no evidence for an atrial septal defect. Aortic Valve Aortic valve is calcified. Number of aortic valve leaflets could not be assessed. No hemodynamically significant valvular aortic stenosis. No aortic regurgitation is present. Mitral Valve The mitral valve is normal in structure. No evidence of mitral valve stenosis. Mild mitral regurgitat ion. Tricuspid Valve The tricuspid valve is normal in structure. There is no tricuspid valve stenosis. Trace tricuspid reg urgitation. Pulmonic Valve The pulmonary valve is normal in structure. There is no pulmonic valvular stenosis. Trace pulmonic re gurgitation. Great Vessels The aortic root is normal in size. The ascending aorta is mildly dilated. Aortic arch is normal in ca liber. IVC is normal in size and collapses >50% with inspiration. Pericardium There is no pericardial effusion. 2D Dimensions IVSD d PLAX 0.98 cm F: 0.6-1.0 LV Vol A2C d MOD 85.9 mL LVPW d PLAX 0.98 cm F: 0.6 - 1.0 LV Vol A4C d MOD 106.8 mL LVID d PLAX 4.08 cm F: 3.8 - 5.2 LA vol/ BSA A2C s A-L 25.0 mL/m2 LVDs 2.80 cm F: 2.2 - 3.5 LA vol/ BSA A4C s A-L 22.6 mL/m2 Ao Root d 2.75 cm F: 2.7 - 3.3 LA Vol/ BSA Biplane s A-L 24.8 mL/m2 RA Area A4C 10.25 cm2 LA Area A4C s MOD 15.43 cm2 RA Vol/ BSA A4C s A-L 11.9 mL/m2 LA Area A2C s MOD 16.91 cm2 Ao Asc Diam d 3.53 cm F: 2.3 - 3.1 LV EF A4C MOD 58.2 % LV EF Teichholz 59.5 % LV EF A2C MOD 58.9 % LVEF (Sinclair's) 58.17 % F: 54 - 74 LV EF Biplane MOD 58.2 % LV Volume 73.99 mL F: 46 - 106 SV 56.28 mL LV Volume Index 39.35 mL/m2 F: 29 - 61 SV Index 29.81 mL/m2 LV Vol Biplane MOD 96.7 mL FS 31.20 % M-Mode TAPSE 2.32 cm (M/F) >1.7 LV Diastology MV E' medial 0.071 (>0.07 m/s) E/A Ratio 1.1 LV E/e MED 16.05 (<14) MV E Vmax 1.14 (0.4-1.3 m/s) MV E' lateral 0.098 (>0.1 m/s) MV A Vmax 1.00 (0.4-1.3 m/s) LV E/e LAT 11.65 (<14) MV E/A Ratio 1.13 MV E/E' medial 16.09 MV E/E' lateral 11.67 Aortic Valve LVOT Area 3.14 cm2 AoV Area Vmax 1.84 cm2 LVOT Vmax 1.26 m/s AoV Area/ BSA (Vmax) 0.98 cm2/m2 LVOT Mean Chilo. 0.78 m/s ARIEL Mean Chilo. 1.51 cm2 LVOT Peak Grad 6.3 mmHg ARIEL Mean Chilo. Index 0.80 cm2/m2 LVOT Mean Grad 2.9 mmHg LVOT VTI 0.269 m LVOT Diam s 1.95 cm AoV Vmax 2.14 m/s Velocity Ratio 0.58 AoV Mean Chilo. 1.61 m/s AoV Peak Grad 18.3 mmHg LVOT SV 84.45 mL AoV Mean Grad 11.2 mmHg AoV VTI 0.507 m AoV Area VTI 1.67 cm2 AoV Area/ BSA (VTI) 0.88 cm/m2 Mitral Valve MV DT 180 (160-240 msec) MV PHT 52 msec MV Area PHT 4.22 cm2 MV VTI 0.332 m MV Area VTI 2.55 (4.0-6.0 cm2) Pulmonary Valve PV Vmax 1.04 (0.5-1.5 m/s) RVOT Peak Gr. 1.47 mmHg PV Peak Grad 4.3 mmHg RVOT Mean Gr. 0.70 mmHg PV Mean Grad 2.4 mmHg RVOT VTI 0.131 m PV VTI 0.254 m RVOT Vmax 0.61 m/s Tricuspid Valve TR Peak Grad 25.8 mmHg TR Vmax 2.54 m/s RA Pressure 3.00 mmHg RVSP (TR) 28.9 mmHg
== END ==
PROVIDERS: PCP Nurse Practitioner; Visit Provider Nurse Practitioner
DX: R01.1 Cardiac murmur, unspecified (principal)
CPT/HCPCS: 93306

== ENCOUNTER → 2022-05-06 02:05 | Outpatient (CLI) | payer MEDICARE, SELFPAY ==
--- NOTE | 2022-05-06 08:30 | DI.DEXA_ITS ---
Exam(s) XR DEXA BONE DENSITY W/WO CANDIDA EXAM: XR DEXA BONE DENSITY W/WO CANDIDA CLINICAL HISTORY: SCREENING FOR OSTEOPOROSIS, Z78.0 TECHNIQUE: COMPARISON: Comparison examination is 04/20/2017. FINDINGS: Lateral Spine Image: Unremarkable. No compression deformities identified. Left hip: Total T-Score: 0.7. This compares to 0.9 on the prior examination. This is a decrease in the bone mi neral density. Total Z-Score: 2.1 T- and Z-scores: Within normal limits. Lumbar Spine: Total T-Score: 0.9. This compares to 0.5 on the prior examination. This is an increase in the bone m ineral density. Total Z-Score: 2.9 T- and Z-scores: Within normal limits. IMPRESSION: No evidence of osteoporosis.
--- NOTE | 2022-05-06 08:30 | DI.MAMMO_ITS ---
Exam(s) MAMMO SCREENING EXAM: MAMMO SCREENING CLINICAL HISTORY: screening,Z12.39 TECHNIQUE: Bilateral full field digital CC and MLO mammographic images were obtained with 3D tomosyn thesis and utilizing computer aided detection (CAD). COMPARISON: Available for comparison. FINDINGS: Masses/Architectural Distortion: There is a new nodule in the outer right breast on the CC view. Microcalcifications: No suspicious pleomorphic-type are seen. Skin Thickening/Nipple Retraction: None. IMPRESSION: 1. New partially obscured nodule 7 cm from the nipple 2. This area should be further evaluated with spot compression view. Ultrasound may be indicated at that time. BI-RADS Category 0 - Assessment Incomplete: Need additional imaging evaluation Breast Density - Category B - Scattered areas of fibroglandular density Breast density category C or D implies that the patient has dense breast tissue. Dense breast tissue is very common and is not abnormal but dense breast tissue can make it harder to find cancer on a ma mmogram. Also, dense breast tissue may increase their breast cancer risk. This information about the result of the mammogram report was provided to the patient to raise their awareness. Use this report when you speak with the patient about their risks for breast cancer, which includes their family hist ory. At that time, you may recommend for more screening tests (Ultrasound or MRI) as they might be us eful based on their risk. A negative radiographic report should not delay biopsy if a dominant or clinically suspicious mass is present. Up to ten percent of cancers are not identified on mammography. A negative report may reinforce clinical impression. Adenosis and dense breasts may obscure an underlying neoplasm. False positive reports average 6 to 10%. Patient will receive a letter notifying them of these results.
== END ==
PROVIDERS: PCP Nurse Practitioner Family; Visit Provider Nurse Practitioner
DX: Z12.31 Encounter for screening mammogram for malignant neoplasm of breast (principal); Z78.0 Asymptomatic menopausal state; R92.8 Other abnormal and inconclusive findings on diagnostic imaging of breast; Z13.820 Encounter for screening for osteoporosis
CPT/HCPCS: 77063; 77067; 77080

== ENCOUNTER → 2022-05-24 01:37 | Outpatient (CLI) | payer MEDICARE, SELFPAY ==
--- NOTE | 2022-05-24 | DI.MAMMO_ITS ---
Exam(s) MAMMO SCREEN CALL BACK UNI EXAM: MAMMO SCREEN CALL BACK UNI CLINICAL HISTORY: F/U MAMMO, R92.8, NEW NODULAR OUTER RT BREAST TECHNIQUE: Spot compression views with tomographic imaging were performed. COMPARISON: 2011 through the recent 06 May 2022. FINDINGS: No suspicious masses or suspicious microcalcifications are seen. No persistent abnormality is seen on the additional views performed. The findings are consistent wit h overlying fibroglandular tissue. There has been no significant change from prior exams. IMPRESSION: BI-RADS Category 1, Negative Yearly screening mammography is recommended. Breast Density - Category B, scattered fibroglandular densities.
== END ==
PROVIDERS: PCP Nurse Practitioner Family; Visit Provider Nurse Practitioner
DX: Z12.31 Encounter for screening mammogram for malignant neoplasm of breast (principal); R92.8 Other abnormal and inconclusive findings on diagnostic imaging of breast; N64.59 Other signs and symptoms in breast
CPT/HCPCS: 77063; 77067

== ENCOUNTER 2022-07-01 21:08 | Outpatient (REF) | payer MEDICARE, SELFPAY ==
[2022-07-07 13:58] LABS: 2-OH-Ethyl-Flurazepam Negative ng/mL (Cutoff: 10); 7-NH-Clonazepam 41 ng/mL (Cutoff: 10); 7-NH-Flunitrazepam Negative ng/mL (Cutoff: 10); Alpha OH-Alprazolam Negative ng/mL (Cutoff: 10); Alpha-OH Midazolam Negative ng/mL (Cutoff: 10); Alpha-OH-Triazolam Negative ng/mL (Cutoff: 10); Alprazolam Negative ng/mL (Cutoff: 10); Benzodiazepines Interpretation Positive.; Chlordiazepoxide Negative ng/mL (Cutoff: 10); Clobazam Negative ng/mL (Cutoff: 10); Clonazepam Negative ng/mL (Cutoff: 10); Diazepam Negative ng/mL (Cutoff: 10); Lorazepam Negative ng/mL (Cutoff: 10); Midazolam Negative ng/mL (Cutoff: 10); N-Desmethylclobazam Negative ng/mL (Cutoff: 10); Prazepam Negative ng/mL (Cutoff: 10); Temazepam Negative ng/mL (Cutoff: 10); Triazolam Negative ng/mL (Cutoff: 10); Zolpidem Carboxylic acid Negative ng/mL (Cutoff: 10)
== END 2022-07-01 21:09 | disposition home or self-care (01) ==
LOC: LBN 21:08
PROVIDERS: PCP Nurse Practitioner Family; Visit Provider Nurse Practitioner Family
DX: M79.7 Fibromyalgia (principal); Z91.89 Other specified personal risk factors, not elsewhere classified
CPT/HCPCS: 80346

== ENCOUNTER → 2022-07-07 10:53 | Outpatient (BNVA) | payer MEDICARE, SELFPAY | PROVIDERS: PCP Nurse Practitioner Family; Referring Provider Nurse Practitioner Family; Visit Provider Nurse Practitioner Adult Health | DX: G89.29 Other chronic pain (principal); R53.83 Other fatigue; G31.84 Mild cognitive impairment of uncertain or unknown etiology | CPT/HCPCS: 99213; 99214 ==

== ENCOUNTER 2022-09-27 12:49 | Outpatient (REF) | payer MEDICARE, SELFPAY | END 2022-09-27 12:50 | disposition home or self-care (01) | LOC: LBN 12:49 | PROVIDERS: PCP Nurse Practitioner Family; Visit Provider Nurse Practitioner Family | DX: R35.0 Frequency of micturition (principal) | CPT/HCPCS: 87086 ==

== ENCOUNTER 2023-03-22 01:43 | Outpatient (CLI) | payer MEDICARE, SELFPAY ==
[2023-03-22 12:15] LABS: HCT 43.2 % (36.0-46.0); HGB 13.5 g/dL (11.2-15.7); MCH 27.2 pg (27.0-33.0); MCHC 31.3 % (32.0-36.0); MCV 87 fL (80-95); MPV 10.8 fL (8.0-11.0); Platelet Count 224 10^3/uL (130-400); RBC 4.97 10^6/uL (3.93-5.22); RDW 14.1 % (11.7-14.6); WBC 5.41 10^3/uL (4.4-10.8)
[2023-03-22 12:35] LABS: Anion Gap 6.9 mmol/L (3-11); BUN 20 mg/dL (7-18); CO2 28.1 mmol/L (21.0-32.0); CREATININE 0.8 mg/dL (0.55-1.02); Calcium 9.4 mg/dL (8.5-10.1); Calculated LDL 84 mg/dL (<100); Chloride 105 mmol/L (98-107); Cholesterol 179 mg/dL (<200); Estimated GFR 79.71 (mL/min/1.73m2); Glucose 110 mg/dL (74-106); HDL Cholesterol 76 mg/dL (40-60); Potassium 4.2 mmol/L (3.5-5.1); Sodium 140 mmol/L (136-145); TSH (W/Ref FT4) 1.68 uIU/mL (0.36-3.74); Triglyceride 96 mg/dL (<150)
== END 2023-03-22 01:44 | disposition home or self-care (01) ==
LOC: LOS 01:43
PROVIDERS: PCP Nurse Practitioner Family; Visit Provider Nurse Practitioner Family
DX: R53.83 Other fatigue (principal); E78.5 Hyperlipidemia, unspecified; F32.89 Other specified depressive episodes; F41.8 Other specified anxiety disorders; M79.7 Fibromyalgia
CPT/HCPCS: 36415; 80048; 80061; 85027; 84443

== ENCOUNTER → 2023-07-19 11:28 | Outpatient (CLI) | payer MEDICARE, SELFPAY ==
--- NOTE | 2023-07-19 13:59 | DI.RAD_ITS ---
Exam(s) XR HIP LT COMPLETE AP PELVIS EXAM: XR HIP LT COMPLETE AP PELVIS CLINICAL HISTORY: left hip pain, low back pain,. TECHNIQUE: 2D digital imaging was performed of the left hip. Two views were obtained. AP pelvis an d lateral left hip views were obtained. COMPARISON: CR XR HIP RT COMPLETE AP PELVIS from 02/23/2021 FINDINGS: BONES: No acute fracture is present. No bony destructive lesion is seen. JOINTS: No dislocation present. There is mild axial joint space narrowing of the hips bilaterally. M ild degenerative changes are seen at the sacroiliac joints. SOFT TISSUE: Normal. IMPRESSION: Mild joint space narrowing of the hips bilaterally. DATA REPOSITORY: RADIATION DOSE DELIVERED:
--- NOTE | 2023-07-19 13:59 | DI.RAD_ITS ---
Exam(s) XR LUMBAR SPINE COMPLETE EXAM: XR LUMBAR SPINE COMPLETE CLINICAL HISTORY: left hip pain, low back pain,m54.50. TECHNIQUE: 2D digital imaging was performed of the lumbar spine. Six images were obtained. AP, lat eral, right oblique, left oblique and L5-S1 spot views were obtained. COMPARISON: CR LUMBAR SPINE COMPLETE from 10/04/2014 FINDINGS: BONES: No fracture or destructive lesion. Endplate osteophytes are seen at all levels of the lumbar s pine. There are degenerative changes of the facets particularly at L4-5 and L5-S1. DISKS: There is disc space narrowing at T12-L1, L3-L4 and L5-S1. There is a vacuum disc at L5-S1. ALIGNMENT: There is a mild right convex curvature of the lumbar spine. No spondylolysis or spondylol isthesis. SOFT TISSUE: There are calcifications seen in the soft tissues bilaterally which appear to lie over t he renal shadow suspicious for nephrolithiasis. IMPRESSION: 1. Moderate degenerative changes in the lumbar spine. 2. Calcifications overlying the renal shadow suspicious for nephrolithiasis. Follow-up as clinically appropriate. DATA REPOSITORY: RADIATION DOSE DELIVERED:
== END ==
PROVIDERS: PCP Nurse Practitioner Family; Visit Provider Nurse Practitioner Family
DX: M51.36 Other intervertebral disc degeneration, lumbar region (principal); M16.0 Bilateral primary osteoarthritis of hip
CPT/HCPCS: 72110; 73502

== ENCOUNTER 2023-07-21 12:56 | Emergency (ER) | payer MEDICARE, SELFPAY ==
[2023-07-21] VITALS (15 sets, daily range): BP systolic 144–166; BP diastolic 62–80; PULSE 63–72; RESP 18; TEMP 37; O2SAT 92–98
--- NOTE | 2023-07-21 14:30 | DI.CT_ITS ---
Exam(s) CT LUMBAR SPINE WO CT ABDOMEN PELVIS W EXAM: CT ABDOMEN PELVIS W CLINICAL HISTORY: flank and left pelvis pain. TECHNIQUE: Imaging Protocol: Axial computed tomography images with coronal and sagittal reformatted images were created and reviewed. Axial, coronal and saddle images of the lumbar spine were reconstructed in bone algorithm. CONTRAST MATERIAL: Intravenous: Omnipaque 350 Contrast volume:100 ml Oral: No COMPARISON: CT ABD PELVIS WITH CONTRAST from 07/19/[address] LUMBAR SPINE WO from 07/21/2023 FINDINGS: ABDOMEN and PELVIS: Lung Bases: No acute findings. Liver: Mildly enlarged. Fatty infiltration. No measurable mass. Gallbladder and biliary tract: Gallstone. No gall bladder wall thickening. Pancreas: Normal density. No abnormal calcifications or inflammatory process. No evidence of mass. Spleen: Normal. Kidneys: Normal size, contour and axis. Bilateral nonobstructing renal calculi. Small simple renal cysts, stable from prior.. No follow-up recommended. No obstructive uropathy. No suspicious masses seen. Adrenal glands: No masses seen. Vasculature: Abdominal aorta non-dilated. Soft tissues: Unremarkable. Bladder: No gross wall thickening. No calculi.No focal mass. Bowel: Mild diverticulosis. No evidence of diverticulitis. No obstruction. No bowel wall thickeni ng. Appendix normal. Peritoneal cavity: No ascites. No focal collection or mesenteric inflammatory response. Bones: Degenerative changes in the spine. Mild to moderate degenerative dextro scoliosis. No eviden ce of fracture. No lytic or blastic lesions. Disc bulging at L3-4 causing mild central canal sten osis. Multilevel bilateral neural foraminal narrowing. Reproductive organs: Status post hysterectomy. Lymph nodes: Unremarkable. IMPRESSION:: No acute abnormality identified in the abdomen or pelvis. Bilateral nonobstructing renal calculi. Cholelithiasis. No evidence of acute cholecystitis. And Degenerative changes in the spine. RADIATION DOSE DELIVERED: 1,023.69mGy.cm Total DLP DATA REPOSITORY: All CT scans at this facility are submitted to the National Radiology Data Registry (NRDR) Dose Index Registry (DIR) with the [employer] ([employer]). RADIATION OPTIMIZATION: All CT scans at this facility use at least one of these dose optimization te chniques: automated exposure control; mA and/or kV adjustment per patient size (includes targeted exa ms where dose is matched to clinical indication); or iterative reconstruction.
[2023-07-21 14:40] LABS: Abs Immature Grans 0.04 10^3/uL (0.0-0.06); Absolute Basophil Count 0.05 10^3/uL (0.0-0.2); Absolute Eosinophil Count 0.12 10^3/uL (0.0-0.7); Absolute Lymphocyte Count 1.34 10^3/uL (1.2-3.4); Absolute Monocyte Count 0.76 10^3/uL (0.1-0.8); Absolute Neutrophil Count 4.96 10^3/uL (1.2-6.7); Basophils % 0.7; Eosinophils % 1.7; HCT 45.4 % (36.0-46.0); HGB 14.3 g/dL (11.2-15.7); Immature Grans % 0.6; Lymphocytes % 18.4; MCH 26.3 pg (27.0-33.0); MCHC 31.5 % (32.0-36.0); MCV 84 fL (80-95); Monocytes % 10.5; Neutrophils % 68.1; Platelet Count 252 10^3/uL (130-400); RBC 5.44 10^6/uL (3.93-5.22); RDW 14.4 % (11.7-14.6); RDW-SD 43.4 fL; WBC 7.27 10^3/uL (4.4-10.8)
[2023-07-21 14:56] LABS: ALT 31 U/L (14-59); AST 18 U/L (15-37); Albumin 4.3 g/dL (3.4-5.0); Alkaline Phosphatase 95 U/L (46-116); Anion Gap 6.7 mmol/L (3-11); BUN 19 mg/dL (7-18); Bilirubin, Total 0.6 mg/dL (0.2-1.0); CO2 33.3 mmol/L (21.0-32.0); CREATININE 0.7 mg/dL (0.55-1.02); Calcium 10.2 mg/dL (8.5-10.1); Chloride 103 mmol/L (98-107); Estimated GFR 92.98 (mL/min/1.73m2); Glucose 90 mg/dL (74-106); Lipase 73 U/L (16-77); Potassium 3.8 mmol/L (3.5-5.1); Sodium 143 mmol/L (136-145); Total Protein 7.8 g/dL (6.4-8.2)
[2023-07-21] MEDS: diazePAM 10 MG/2 ML SYR 2.5 MG IVP ×2 (14:56→15:36)
[2023-07-21] MEDS: Acetaminophen 500 MG TAB 1000 MG PO (14:56)
--- NOTE | 2023-07-21 15:21 | ED.GENADUL_ITS ---
HPI <JOSH Nice - Last Filed: 07/23/23 10:42> General Date/Time Provider Initiated Documentation: 07/21/23 13:34 . HPI Narrative: This 68-year-old female with history of hyperlipidemia, fibromyalgia, anxiety, mild cognitive impairment, akathisia presents with report of pain for the past week. Patient states she stood up and developed some pain in the left flank and gluteal region which radiated down to her mid thigh. She was evaluated by her doctor on Tuesday and took 5 days of prednisone, she did not have any improvement of symptoms with this Patient denies any abdominal pain, chest pain, shortness of breath, dizziness. Pain is exacerbated with movement. Denies fever or chills. Denies any nausea or vomiting. Denies any falls or additional injuries. Denies history of similar symptoms in the past. Denies any urinary complaints. Denies history of illicit drug use. Related Data Home Medications Medication Instructions Recorded Confirmed ascorbic acid (vitamin C) 500 mg 1 tab PO DAILY 09/03/12 07/21/23 tablet calcium carbonate 600 mg-vitamin 1 tab PO BID 09/03/12 07/21/23 D3 5 mcg (200 unit) tablet cyanocobalamin (vitamin B-12) 500 1 tab PO DAILY 09/03/12 07/21/23 mcg tablet (Vitamin B-12) loratadine 10 mg tablet 10 mg PO DAILY #90 tab-caps 12/02/12 07/21/23 omega-3 fatty acids-fish oil 300 1 cap PO BID 03/22/18 07/21/23 mg-1,000 mg capsule (Fish Oil) boron citrate 3 mg tablet 3 mg PO DAILY 05/14/19 07/21/23 acetaminophen 500 mg tablet 500 mg PO Q6H PRN #90 tabs 04/15/20 07/21/23 (Tylenol Extra Strength) triamcinolone acetonide 0.025 % 1 applic topical bid prn 01/28/21 07/21/23 topical ointment dermatitis #30 grams docusate sodium 100 mg capsule 100 mg PO HS PRN 07/01/22 07/21/23 (Colace) multivitamin with minerals 1 tab PO DAILY 07/01/22 07/21/23 (Hair,Skin and Nails tablet) celecoxib 200 mg capsule (Celebrex) 200 mg PO .daily to bid prn #45 09/06/22 07/21/23 caps risperidone 3 mg tablet 3 mg PO HS #90 tab-caps 09/06/22 07/21/23 propranolol 10 mg tablet 10 mg PO BID #180 tab-caps 09/13/22 07/21/23 omeprazole 40 mg capsule,delayed 40 mg PO DAILY #90 tab-caps 09/27/22 07/21/23 release buspirone 30 mg tablet 30 mg PO BID #180 tabs 10/29/22 07/21/23 venlafaxine 75 mg capsule,extended 225 mg (3 x 75 mg) PO DAILY #270 10/29/22 07/21/23 release 24 hr tab-caps pravastatin 20 mg tablet 20 mg PO DAILY #90 tab-caps 02/03/23 07/21/23 pregabalin 150 mg capsule 150 mg PO TID #270 caps 02/03/23 07/21/23 nystatin 100,000 unit/gram topical 1 applic topical BID prn #60 grams 03/03/23 07/21/23 powder bupropion HCl 150 mg 24 hr tablet, 150 mg PO QAM #30 tabs 06/09/23 07/21/23 extended release sertraline 100 mg tablet 200 mg (2 x 100 mg) PO DAILY #60 06/09/23 07/21/23 tabs clonazepam 0.5 mg tablet 0.25 mg (1/2 x 0.5 mg) PO BID josué 06/23/23 07/21/23 #28 tabs magnesium oxide 500 mg tablet See Rx Instructions .Route 06/23/23 07/21/23 .COMPLEX #90 tabs diazepam 5 mg tablet (Valium) 5 mg PO BID PRN #14 tabs 07/21/23 lidocaine 5 % topical patch 1 patch topical DAILY #15 ea 07/21/23 (Lidoderm) Previous Rx's Medication Instructions Recorded acetaminophen 500 mg tablet 500 mg PO Q6H PRN #90 tabs 04/15/20 (Tylenol Extra Strength) triamcinolone acetonide 0.025 % 1 applic topical bid prn 01/28/21 topical ointment dermatitis #30 grams celecoxib 200 mg capsule (Celebrex) 200 mg PO .daily to bid prn #45 09/06/22 caps risperidone 3 mg tablet 3 mg PO HS #90 tab-caps 09/06/22 propranolol 10 mg tablet 10 mg PO BID #180 tab-caps 09/13/22 omeprazole 40 mg capsule,delayed 40 mg PO DAILY #90 tab-caps 09/27/22 release buspirone 30 mg tablet 30 mg PO BID #180 tabs 10/29/22 venlafaxine 75 mg capsule,extended 225 mg (3 x 75 mg) PO DAILY #270 10/29/22 release 24 hr tab-caps pravastatin 20 mg tablet 20 mg PO DAILY #90 tab-caps 02/03/23 pregabalin 150 mg capsule 150 mg PO TID #270 caps 02/03/23 nystatin 100,000 unit/gram topical 1 applic topical BID prn #60 grams 03/03/23 powder bupropion HCl 150 mg 24 hr tablet, 150 mg PO QAM #30 tabs 06/09/23 extended release sertraline 100 mg tablet 200 mg (2 x 100 mg) PO DAILY #60 06/09/23 tabs clonazepam 0.5 mg tablet 0.25 mg (1/2 x 0.5 mg) PO BID josué 06/23/23 #28 tabs magnesium oxide 500 mg tablet See Rx Instructions .Route 06/23/23 .COMPLEX #90 tabs diazepam 5 mg tablet (Valium) 5 mg PO BID PRN #14 tabs 07/21/23 lidocaine 5 % topical patch 1 patch topical DAILY #15 ea 07/21/23 (Lidoderm) Allergies Allergy/AdvReac Type Severity Reaction Status Date / Time atorvastatin AdvReac Severe Exacerbated Verified 07/21/23 13:06 fibromyalgia pain mirtazapine AdvReac Severe exacerbated Verified 07/21/23 13:06 fibromyalgia symptoms oxycodone AdvReac Severe H/A Verified 07/21/23 13:06 FLUSHING nabumetone AdvReac Intermediate Abdominal Verified 07/21/23 13:06 pain, diarrhea Penicillins AdvReac sick after Verified 07/21/23 13:06 taking it General Stated Complaint: Nk/Back Pain ROSALIE: 3 Course <JOSH Nice - Last Filed: 07/23/23 10:42> Vital Signs Vital signs: Vital Signs Temperature 37 C 07/21/23 13:03 Pulse 70 07/21/23 13:03 Respiratory Rate 18 07/21/23 13:03 Blood Pressure 166/80 H 07/21/23 13:03 Pulse Oximetry 97 07/21/23 13:03 Temperature 37 C 07/21/23 13:03 Temperature Source Temporal Artery Scan 07/21/23 13:03 Pulse 70 07/21/23 13:03 Respiratory Rate 18 07/21/23 13:03 Respiratory Effort Normal, Non-Labored 07/21/23 13:07 Blood Pressure 166/80 H 07/21/23 13:03 Blood Pressure Position Sitting 07/21/23 13:03 Pulse Oximetry 97 07/21/23 13:03 Oxygen Delivery Method Room Air 07/21/23 13:03 Oxygen Flow Rate 0 07/21/23 13:03 Lab/Test Results Lab/Test Results: Laboratory Tests Range/Units 07/21/23 14:20 WBC (4.4-10.8) 10^3/uL 7.27 RBC (3.93-5.22) 10^6/uL 5.44 H Hgb (11.2-15.7) g/dL 14.3 Hct (36.0-46.0) % 45.4 MCV (80-95) fL 84 MCH (27.0-33.0) pg 26.3 L MCHC (32.0-36.0) % 31.5 L RDW (11.7-14.6) % 14.4 Plt Count (130-400) 10^3/uL 252 MPV (8.0-11.0) fL 10.0 Immature Gran % 0.6 Neutrophils % 68.1 Lymphocytes % 18.4 Monocytes % 10.5 Eosinophils % 1.7 Basophils % 0.7 Nucleated RBC % (0.0-0.3) % 0.0 Absolute Neutrophils (1.2-6.7) 10^3/uL 4.96 Absolute Lymphocytes (1.2-3.4) 10^3/uL 1.34 Absolute Monocytes (0.1-0.8) 10^3/uL 0.76 Absolute Eosinophils (0.0-0.7) 10^3/uL 0.12 Absolute Basophils (0.0-0.2) 10^3/uL 0.05 Sodium (136-145) mmol/L 143 Potassium (3.5-5.1) mmol/L 3.8 Chloride (98-107) mmol/L 103 Carbon Dioxide (21.0-32.0) mmol/L 33.3 H Anion Gap (3-11) mmol/L 6.7 BUN (7-18) mg/dL 19 H Creatinine (0.55-1.02) mg/dL 0.7 Est GFR (CKD-EPI 2020) (mL/min/1.73m2) 92.98 Glucose (74-106) mg/dL 90 Calcium (8.5-10.1) mg/dL 10.2 H Total Bilirubin (0.2-1.0) mg/dL 0.6 AST (15-37) U/L 18 ALT (14-59) U/L 31 Alkaline Phosphatase (46-116) U/L 95 Total Protein (6.4-8.2) g/dL 7.8 Albumin (3.4-5.0) g/dL 4.3 Lipase (16-77) U/L 73 Medical Decision Making <JOSH Nice - Last Filed: 07/23/23 10:42> This 68-year-old female presents with report of back pain with radiation into her left leg, this has been present for approximately a week, she has tenderness with palpation in her left lower quadrants, she also has some CVA tenderness She is afebrile and nontoxic, she is alert and oriented, she is neurovascularly intact without evidence of cauda equina syndrome clinically, she has no abdominal bruit or pulsatile mass, lungs are clear to auscultation, cardiac rate rhythm regular She is accompanied by her sister has calm and cooperative Strength and sensation intact distally Negative straight leg raise Given her age, comorbidities, and presentation, did order CT abdomen and pelvis and lumbar spine, she is pending CT She has been given valium and tylenol in the emergency department and will be signed out pending CT interpretation and review Quality:[facility] Health Related Social Needs: No Data to Display <JOSH Perkins - Last Filed: 07/21/23 17:08> This 68-year-old female presents with report of back pain with radiation into her left leg, this has been present for approximately a week, she has tenderness with palpation in her left lower quadrants, she also has some CVA tenderness She is afebrile and nontoxic, she is alert and oriented, she is neurovascularly intact without evidence of cauda equina syndrome clinically, she has no abdominal bruit or pulsatile mass, lungs are clear to auscultation, cardiac rate rhythm regular She is accompanied by her sister has calm and cooperative Strength and sensation intact distally Negative straight leg raise Given her age, comorbidities, and presentation, did order CT abdomen and pelvis and lumbar spine, she is pending CT She has been given valium and tylenol in the emergency department and will be signed out pending CT interpretation and review 1545: I assumed care of this 68-year-old female from my colleague JOSH Russell, please see her initial HPI and examination. At time of signout patient had already been given a Valium and Tylenol. Laboratory values have resulted and are reassuring. Awaiting CT abdomen and pelvis with IV contrast as well as CT of the lumbar spine without contrast. I introduced myself to the patient and her sister upon the start of my shift. Made her aware of the plan. Patient states that she feels moderate improvement with the Tylenol and Valium. We discussed her reassuring laboratory values. Patient was trial ambulated using a cane, she was able to tolerate ambulation slowly and steadily, mild increased pain. CT imaging reveals degenerative changes in the lumbar spine, no acute intra- abdominal or pelvic process. Discussed in length with patient and sister. Patient is relieved that her workup has been without obvious emergent process but does state that she is concerned about her pain. She has a history of fibromyalgia and reports that controlling her pain can be quite difficult. She does take Celebrex as needed, we discussed taking this consistently as directed over the next week. I will provide a prescription for Valium which she tolerated well in the ER. I will also provide a prescription for a Lidoderm patch. The patient reports that her pain feels like a burning sensation deep in her left buttocks and travels down the posterior lateral aspect of her upper leg to her knee, but not below her knee. Direct palpation of her lumbar spine region reveals discomfort to the SI joint and left buttocks. Clinically this appears to be sciatica. We did discuss potential for lumbar radiculopathy. We discussed the importance of outpatient follow-up to her PCP, potential MRI of her lumbar spine, referral to [facility] spine and/or the pain clinic. Discussed the possibility of an injection to her SI joint or even ischial bursa if indicated. In the meantime she will continue working with physical therapy, has been to one appointment so far. Patient will contact her PCP tomorrow to discuss her ER visit, ongoing symptoms, and need for outpatient reevaluation and continued workup if she is not responding to conservative measures. She remains neurologically intact and without evidence of cauda equina, focal weakness, or distress. She was encouraged to return immediately to the ER for new, evolving, worsening symptoms. Standard discharge and return precautions were provided. Patient understands, is agreeable to this plan, and has no additional questions or concerns upon discharge. This documentation was generated using [employer] system, please disregard any oddities of phrase or misspellings. Medical Records Medical records reviewed: Yes I reviewed the patient's medical records. Imaging Data Radiologic Study: Attestation: I personally reviewed and interpreted this imaging study as follows: Imaging: CT Scan Radiologist's impression: ABDOMEN and PELVIS and lumbar spine. Lung Bases: No acute findings. Liver: Mildly enlarged. Fatty infiltration. No measurable mass. Gallbladder and biliary tract: Gallstone. No gall bladder wall thickening. Pancreas: Normal density. No abnormal calcifications or inflammatory process. No evidence of mass. Spleen: Normal. Kidneys: Normal size, contour and axis. Bilateral nonobstructing renal calculi. Small simple renal cysts, stable from prior.. No follow-up recommended. No obstructive uropathy. No suspicious masses seen. Adrenal glands: No masses seen. Vasculature: Abdominal aorta non-dilated. Soft tissues: Unremarkable. Bladder: No gross wall thickening. No calculi.No focal mass. Bowel: Mild diverticulosis. No evidence of diverticulitis. No obstruction. No bowel wall thickening. Appendix normal. Peritoneal cavity: No ascites. No focal collection or mesenteric inflammatory response. Bones: Degenerative changes in the spine. Mild to moderate degenerative dextro scoliosis. No evidence of fracture. No lytic or blastic lesions. Disc bulging at L3-4 causing mild central canal stenosis. Multilevel bilateral neural foraminal narrowing. Reproductive organs: Status post hysterectomy. Lymph nodes: Unremarkable. IMPRESSION:: No acute abnormality identified in the abdomen or pelvis. Bilateral nonobstructing renal calculi. Cholelithiasis. No evidence of acute cholecystitis. And Degenerative changes in the spine. Lab Data Lab results reviewed: Yes I reviewed the patient's lab results. Labs: Laboratory Tests Range/Units 07/21/23 07/21/23 14:20 15:24 WBC (4.4-10.8) 10^3/uL 7.27 RBC (3.93-5.22) 10^6/uL 5.44 H Hgb (11.2-15.7) g/dL 14.3 Hct (36.0-46.0) % 45.4 MCV (80-95) fL 84 MCH (27.0-33.0) pg 26.3 L MCHC (32.0-36.0) % 31.5 L RDW (11.7-14.6) % 14.4 Plt Count (130-400) 10^3/uL 252 MPV (8.0-11.0) fL 10.0 Immature Gran % 0.6 Neutrophils % 68.1 Lymphocytes % 18.4 Monocytes % 10.5 Eosinophils % 1.7 Basophils % 0.7 Nucleated RBC % (0.0-0.3) % 0.0 Absolute Neutrophils (1.2-6.7) 10^3/uL 4.96 Absolute Lymphocytes (1.2-3.4) 10^3/uL 1.34 Absolute Monocytes (0.1-0.8) 10^3/uL 0.76 Absolute Eosinophils (0.0-0.7) 10^3/uL 0.12 Absolute Basophils (0.0-0.2) 10^3/uL 0.05 Sodium (136-145) mmol/L 143 Potassium (3.5-5.1) mmol/L 3.8 Chloride (98-107) mmol/L 103 Carbon Dioxide (21.0-32.0) mmol/L 33.3 H Anion Gap (3-11) mmol/L 6.7 BUN (7-18) mg/dL 19 H Creatinine (0.55-1.02) mg/dL 0.7 Est GFR (CKD-EPI 2020) (mL/min/1.73m2) 92.98 Glucose (74-106) mg/dL 90 Calcium (8.5-10.1) mg/dL 10.2 H Total Bilirubin (0.2-1.0) mg/dL 0.6 AST (15-37) U/L 18 ALT (14-59) U/L 31 Alkaline Phosphatase (46-116) U/L 95 Total Protein (6.4-8.2) g/dL 7.8 Albumin (3.4-5.0) g/dL 4.3 Lipase (16-77) U/L 73 Urine Color (Yellow) Yellow Urine Clarity (Clear) Sl Cloudy Urine pH (5-8) 7.5 Ur Specific [place] (1.005-1.025) 1.015 Urine Protein (Negative) mg/dL Negative Urine Ketones (Negative) mg/dL Negative Urine Blood (Negative) Negative Urine Nitrite (Negative) Negative Urine Bilirubin (Negative) Negative Urine Urobilinogen (Up to 0.2) mg/dL 0.2 Ur Leukocyte Esterase (Negative) Trace H Urine RBC (0-2) HPF Negative Urine WBC (0-5) HPF 0-2 Ur Epithelial Cells (Negative) HPF Rare Urine Crystals (Negative) HPF Few Amorphous Urine Bacteria (Negative) HPF Few Urine Casts (Negative) LPF Negative Urine Mucus (Negative) Negative Ur Culture Indicated? 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) Akathisia (Acute 05/17/14) Depressive disorder (Acute) panic/social phobia; dissociative disorder Fatigue (Acute 02/22/14) memory loss Gastroesophageal reflux disease (Acute 12/05/12) Hyperlipidemia (Acute 02/02/13) Primary fibromyalgia syndrome (Acute 02/16/13) -2017; changed the dx from inflamm.polyarthritis to polymyalgia Vitamin D deficiency (Acute 02/02/13) Anxiety (Chronic) Mild cognitive impairment (Acute) Hair loss (Acute) Medical History Abnormal liver function tests (02/22/14) fatty liver on US, neg hep panel Acute osteomyelitis of pelvic region (12/05/12) 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 states currently on medication My alters haven't come out for years Painful total knee replacement, right actually fibromyalgia- per rheumatlogist (Dr. Carter) Primary malignant neoplasm of endometrium (04/19/12) 2011 [facility]/BSO and vaginal cuff radiation Right hip pain (02/22/14) labral tear on MRI Surgical History Colonoscopy - MAC (11/14/17) twice Hysterectomy, Laproscopic (~09/2011) TOTAL Rotator Cuff Repair (08/06/09) DR. LYNCH, right Status post total right knee replacement (04/15/20) Family History Mother , AGE 85 Diabetes Essential hypertension Arthritis Dementia Heart disease Hyperlipidemia Anxiety Depression Father , AGE 70 Diabetes Essential hypertension Heart disease Hyperlipidemia Sister Essential hypertension Hyperlipidemia Maternal Grandfather , age 70 Heart disease Paternal Grandfather , age 57 Heart disease Maternal Grandmother , age 81 Heart disease Goiter Paternal Grandmother , age 90 Diabetes Essential hypertension Goiter Heart disease Hyperlipidemia Maternal Aunt Dementia Maternal Aunt Dementia Maternal Aunt Dementia Maternal Aunt Dementia Goiter Son Essential hypertension Diabetes Social History Smoking/Tobacco Use Status: Never Second Hand Exposure: Yes Smoking risk assessment performed?: Yes Alcohol Intake: never Drug use: Never Substance use type: does not use Caregiver/Support person: No Household members: spouse Housing: house Communication Needs: Corrective Lenses Do you need help understanding health information?: Rarely current occupation: HOUSEWIFE Pets and animals: Yes Pets and animals: dog(s) Sexually active: No Do you think of yourself as: straight/heterosexual Current gender identity: female What is your relationship status?: How often do you talk on the phone with friends or family?: twice per week How often do you get together with friends or relatives?: once per week How often do you attend judaism or episcopal services?: decline to answer Do you belong to any clubs or organized social groups?: no Panel score (0-1 are the most socially isolated patients): 2 What type of physical activity do you participate in: walking Duration: < 15 minutes/day Frequency: 3-4 times per week Steph/Yazidism: Judaism Special steph needs: No Seatbelt use: always Drive intox or ride w/intox catering driver: No Firearms in home: Yes Do you feel safe at home: Yes Do you feel safe in your relationship?: Yes Sign Out <JOSH Nice - Last Filed: 07/23/23 10:42> Sign Out Data: Sign Out Comment: pending ct scans of abd/pelvis and lumbar spine ambulatory trial and dispo Last updated by Sandra Russell PA at 07/21/23 15:39 Discharge Plan Disposition Patient Disposition: Home Condition: Improving Discharge Details Clinical Impression: Sciatica of left side Primary Care Provider: Lazara Sheridan ED Provider: Luciano Calhoun Home Meds and New Rx's Prescriptions: New lidocaine [Lidoderm] 5 % adhesive patch,medicated 1 patch topical DAILY Qty: 15 0RF Rx Instructions: leave on most painful area for up to 12 hrs diazepam [Valium] 5 mg tablet 5 mg PO BID PRNQty: 14 0RF Continued omega-3 fatty acids-fish oil [Fish Oil] 300-1,000 mg capsule 1 cap PO BID boron citrate 3 mg tablet 3 mg PO DAILY omeprazole 40 mg capsule,delayed release(DR/EC) 40 mg PO DAILY Qty: 90 4RF Rx Instructions: 1 CAP DAILY triamcinolone acetonide 0.025 % ointment 1 applic Topical bid prn Qty: 30 1RF Rx Instructions: apply in thin layer around the ear twice a day as needed Hair,Skin and Nails Tablet 1 tab PO DAILY Rx Instructions: 5000 mcg Biotin. nystatin 100,000 unit/gram powder 1 applic Topical BID prn Qty: 60 0RF Rx Instructions: apply to rash under breasts/ skin folds sertraline 100 mg tablet 200 mg PO DAILY Qty: 60 2RF bupropion HCl 150 mg tablet extended release 24 hr 150 mg PO QAM Qty: 30 2RF calcium carbonate-vitamin D3 1 EACH tablet 1 tab PO BID cyanocobalamin (vitamin B-12) [Vitamin B-12] 500 MCG tablet 1 tab PO DAILY ascorbic acid (vitamin C) 500 MG tablet 1 tab PO DAILY loratadine 10 MG tablet 10 mg PO DAILY Qty: 90 Rx Instructions: 1 TAB DAILY docusate sodium [Colace] 100 mg capsule 100 mg PO HS PRN Patient Comments: 02/16/13 1 hs. si celecoxib [Celebrex] 200 mg capsule 200 mg PO .daily to bid prn Qty: 45 12RF risperidone 3 mg tablet 3 mg PO HS Qty: 90 4RF propranolol 10 mg tablet 10 mg PO BID Qty: 180 4RF Rx Instructions: take one tablet twice a day buspirone 30 mg tablet 30 mg PO BID Qty: 180 4RF Rx Instructions: New dosage/ take one tablet twice a day venlafaxine 75 mg capsule,extended release 24hr 225 mg PO DAILY Qty: 270 4RF pravastatin 20 mg tablet 20 mg PO DAILY Qty: 90 3RF Rx Instructions: take one tablet daily pregabalin 150 mg capsule 150 mg PO TID Qty: 270 3RF clonazepam 0.5 mg tablet 0.25 mg PO BID Qty: 28 0RF Rx Instructions: take half a tablet twice a day as needed magnesium oxide 500 mg tablet See Rx Instructions .ROUTE .COMPLEX Qty: 90 6RF Dose Instruction: TAKE TWO TABLETS BY MOUTH EVERY DAY Rx Instructions: TAKE TWO TABLETS BY MOUTH EVERY DAY acetaminophen [Tylenol Extra Strength] 500 mg tablet 500 mg PO Q6H PRNQty: 90 0RF Discharge Instructions Instructions: Sciatica (ED) Additional Instructions: Overall your workup in the ER today was reassuring for acute emergent process. Unfortunately as we discussed you do have degenerative changes to your lumbar spine, it appears as though you have a bulging disc at the level L3-4 and mul tiple level narrowing. Please take your medications as directed including your Celebrex. I am providing you a prescription for a Lidoderm patch as well as Valium. Remember that Valium may cause drowsiness. Gentle stretching as tolerated. Warm moist heat as tolerated. You may also take [id number] Tylenol as directed. Please watch for new or worsening symptoms and return immediately to the ER. Otherwise as we discussed, please contact your primary care provider tomorrow. Discussed with them your ongoing symptoms, and workup here in the ER. Additional referral to spine clinic, pain management, and possibly outpatient nonemergent MRI may be indicated to further evaluate your ongoing symptoms. I do recommend continuing with your physical therapy that you began earlier this week. Discharge Data Discharge Date/Time-TO BE ENTERED AT DEPARTURE: 07/21/23 17:27
[2023-07-21 15:31] LABS: Bilirubin Negative (Negative); Blood Negative (Negative); Clarity Sl Cloudy (Clear); Glucose Negative (Negative); Ketones Negative (Negative); Leukocyte Esterase Trace (Negative); Nitrite Negative (Negative); Specific Gravity 1.015 (1.005-1.025); Urobilinogen 0.2 mg/dL (Up to 0.2); pH 7.5 (5-8)
[2023-07-21 15:37] LABS: RBC Negative HPF (0-2); WBC 0-2 HPF (0-5)
[2023-07-21 15:38] LABS: Bacteria Few HPF (Negative); C & S Indicated? No; Casts Negative LPF (Negative); Crystals Few Amorphous HPF (Negative); Epithelial Cells Rare HPF (Negative); Mucus Negative (Negative)
[2023-07-21] MEDS: Omnipaque 350 MG/ML 100 ML BTL IJ (16:10)
[2023-07-21] MEDS: Normal Saline - Diluent 50 ML VIAL IJ (16:12)
== END 2023-07-21 17:27 | disposition home or self-care (01) ==
PROVIDERS: Physician Assistant; Emergency Provider Physician Assistant; PCP Nurse Practitioner Family
DX: M48.061 Spinal stenosis, lumbar region without neurogenic claudication (principal); M54.42 Lumbago with sciatica, left side; M79.7 Fibromyalgia; E78.5 Hyperlipidemia, unspecified
CPT/HCPCS: 80053; 83690; 96374; 96376; 99285; 72131; 74177; 81003; 81015; 85025; 99284; J3360; J3490

== ENCOUNTER → 2023-08-03 00:46 | Outpatient (CLI) | payer MEDICARE, SELFPAY ==
--- NOTE | 2023-08-03 08:15 | DI.MRI_ITS ---
Exam(s) MR LUMBAR SPINE WO EXAM: MR LUMBAR SPINE WO CLINICAL HISTORY: acute,persistant left low back pain with radiculoPATHY,M54.50,M79.605. TECHNIQUE: Multiplanar multisequence MRI of the Lumbar spine was performed. COMPARISON: MR MRI - LUMBAR SPINE W/WO CONT from 07/20/2012 CR XR LUMBAR SPINE COMPLETE from 07/19/2023 FINDINGS: There is a scoliosis convex right again noted Conus medullaris is at normal level. There is no evidence of conus mass nor subjacent clumping of in trathecal nerve roots to suggest arachnoiditis. The distal thecal sac appears unremarkable.There is no evidence of Tarlov intrasacral cysts nor other significant findings within the sacral canal Bones:There are no fractures nor ominous osseous lesions in the lumbar vertebral bodies and visualize d sacrum. Benign intraosseous hemangioma is noted in the posterior aspect L1 vertebral body With respect to the individual levels... T12-L1: Unremarkable L1-2: Mild annular bulging without a significant disc herniation or central canal stenosis. No signi ficant foraminal stenosis. Mild facet joint degenerative changes. L2-3: Mildly decreased disc height on the left side of the disc space and lateral left osteophytes. There is annular bulging at this level more prominent on the left side and extending into the exiting left neural foramen. Central canal dimensions are lower normal. Mild left-sided foraminal stenosis noted due to the asymmetric disc height loss and degenerative change in the left facet joints. Ther e is no foraminal stenosis on the opposite-right side. L3-4: This level exhibits relatively preserved disc height. There is broad annular bulging but asymm etric disc herniation left paracentral, this extending posteriorly 6 mm and occupying the left latera l recess and extending into the exiting left neural foramen at this level resulting in mild-moderate left-sided foraminal stenosis, this compounded by moderate degenerative change in the left facet join t. There is no foraminal stenosis on the opposite-right side. There is mild-moderate central canal stenosis at this level due to the disc findings, short AP dimensions the pedicles and some degenerati ve change in the facet joints.Milder degenerative changes noted in the right facet joint L4-5: Normal disc height and signal. No significant disc herniation at this level. Central canal di mensions are lower normal. There are moderate-advanced degenerative changes in the facet joints but no foraminal stenosis evident on either side at this level. L5-S1: This level exhibits chronic disc space height loss, more so on the left than the right and wit h Modic type 2 sub endplate fatty marrow changes on the right side of the disc space. There is no di sc herniation or central canal stenosis at this level. There is moderate-severe foraminal stenosis o n the right side at this level due to the asymmetric advanced disc height loss on the right side and marginal osteophyte, these findings compressing the exiting right nerve root between the subjacent an nulus and osteophyte and the overlying right L5 pedicle. There is also moderate degenerative change in the right facet joint adding to the foraminal stenosis. There is no foraminal stenosis on the opp osite-left side where there is more preserved disc height and less facet arthropathy. Soft tissues: Small benign cysts are noted in the right kidney measuring less than 1 cm. Does not r equire imaging workup. IMPRESSION: 1. Degenerative scoliosis with multilevel findings as described individually above. 2. There is some central canal stenosis at L3-4 level. There is asymmetric foraminal stenosis, this being most prominent on the right-sided L5-S1 level and on the left side at L3-4 level. There is als o mild foraminal stenosis on the left side at L2-3 level 3. No fractures nor listhesis nor ominous osseous lesions. DATA REPOSITORY:
== END ==
PROVIDERS: PCP Nurse Practitioner Family; Visit Provider Nurse Practitioner Family
DX: M48.062 Spinal stenosis, lumbar region with neurogenic claudication (principal)
CPT/HCPCS: 72148

== ENCOUNTER → 2023-08-31 01:02 | Outpatient (CLI) | payer MEDICARE, SELFPAY ==
--- NOTE | 2023-08-31 11:15 | DI.MRI_ITS ---
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 TECHNIQUE: Multiplanar multisequence MRI of the Thoracic spine was performed. CONTRAST MATERIAL: Noncontrast COMPARISON: No exams were available for comparison FINDINGS: Bones: The vertebral body heights are well maintained. Mild dextroscoliosis in the midthoracic region . Mild levoscoliosis at the thoracolumbar junction.. The marrow signal characteristics are unremark able. Small hemangioma in T10. Cord: The thoracic cord is normal size and signal intensity. No intrinsic cord lesion is present. Discs: No disc herniation is present. Mild disc bulging. Endplate osteophytes projecting mainly a nteriorly. Soft tissues: Normal. IMPRESSION: Mild degenerative changes and mild scoliosis.. No disc herniation. No central canal stenosis or arminda ral foraminal narrowing. DATA REPOSITORY:
== END ==
PROVIDERS: PCP Nurse Practitioner Family; Visit Provider Nurse Practitioner Family
DX: M41.84 Other forms of scoliosis, thoracic region (principal)
CPT/HCPCS: 72146

== ENCOUNTER → 2023-09-21 12:33 | Outpatient (BNVA) | payer MEDICARE, SELFPAY | PROVIDERS: PCP Nurse Practitioner Family; Referring Provider Nurse Practitioner Family; Visit Provider Nurse Practitioner Adult Health | DX: G31.84 Mild cognitive impairment of uncertain or unknown etiology (principal) | CPT/HCPCS: 99214 ==

== ENCOUNTER → 2023-12-21 08:35 | Outpatient (BNVA) | payer MEDICARE, SELFPAY | PROVIDERS: PCP Nurse Practitioner Family; Referring Provider Physical Medicine & Rehabilitation; Visit Provider Psychiatry & Neurology Neurology | DX: M54.16 Radiculopathy, lumbar region (principal); G20.C Parkinsonism, unspecified; R01.1 Cardiac murmur, unspecified | CPT/HCPCS: 95885; 95887; 95908; 99215 ==

== ENCOUNTER → 2024-01-12 01:32 | Outpatient (CLI) | payer MEDICARE, SELFPAY ==
--- NOTE | 2024-01-12 06:45 | DI.US_ITS ---
APPROVED REPORT EXAM: Comprehensive 2D, Doppler, and color-flow Echocardiogram Patient Location: Out-Patient Veterinary Radiologist: Yara Gardner RDCS ([facility]) Indications: Murmur Other Information Study Quality: Adequate Conclusion Normal left ventricular wall thickness and chamber size. Ejection fraction is 60%. Wall motion is n ormal Normal right ventricular size and function Both atria are normal in size Aortic valve is sclerotic and trileaflet without stenosis or regurgitation There is no additional structural or hemodynamically significant valvular disease Estimated right ventricular systolic pressure is 27 mmHg Ascending aorta measures 3.44 cm Wall motion Left Ventricle The left ventricle is normal size. The left ventricular systolic function is normal. The left ventric ular ejection fraction is within the normal range. There is normal left ventricular wall thickness. T here is normal LV segmental wall motion. There is no ventricular septal defect visualized. LVEF is 60 %. Right Ventricle The right ventricle is normal size. The right ventricular systolic function is normal. Atria The left atrium size is normal. The right atrium size is normal. The interatrial septum is intact wit h no evidence for an atrial septal defect. Aortic Valve The Aortic valve is sclerotic. Aortic valve is trileaflet. No hemodynamically significant valvular ao rtic stenosis. No aortic regurgitation is present. Mitral Valve The mitral valve is normal in structure. No evidence of mitral valve stenosis. Trace to mild mitral regurgitation. Tricuspid Valve The tricuspid valve is normal in structure. There is no tricuspid valve stenosis. Trace tricuspid reg urgitation. The RVSP is 27.5 mmHg. Pulmonic Valve The pulmonary valve is normal in structure. There is no pulmonic valvular stenosis. Trace pulmonic re gurgitation. Great Vessels The aortic root is normal in size. The ascending aorta is mildly dilated. Aortic arch is normal in ca liber. IVC is normal in size and collapses >50% with inspiration. 2D Dimensions IVSD d PLAX 0.90 cm F: 0.6-1.0 Ao Root d 2.73 cm F: 2.7 - 3.3 LVPW d PLAX 0.91 cm F: 0.6 - 1.0 Ao Asc Diam d 3.44 cm F: 2.3 - 3.1 LVID d PLAX 3.86 cm F: 3.8 - 5.2 LVDs 2.64 cm F: 2.2 - 3.5 LV EF Teichholz 60.4 % FS 31.73 % LV EDV (Teich) 64.4 mL LV ESV (Teich) 25.5 mL M-Mode TAPSE 2.48 cm (M/F) >1.7 Auto EF LV EDV A4C 85.7 mL LV EDV A2C 102.0 mL LV EDV BP 93.9 mL LV ESV A4C 35.7 mL LV ESV A2C 40.1 mL LV ESV BP 37.9 mL LVEF(%) A4C 58.3 % LVEF(%) A2C 60.7 % LVEF(%) BP 59.7 % LV SV A4C 49.9 ml LV SV A2C 62.0 ml LV SV BP 56.0 ml LV CO A4C 3.3 L/min LV CO A2C 4.0 L/min LV CO BP 3.7 L/min HR A4C 66.18 BPM HR A2C 64.62 BPM LV EDV Index (BP) LA Volume LA Length A4C 4.8 cm LA Length A2C 5.3 cm LA Area A4C s 14.44 cm2 LA Area A2C s 18.43 cm2 LA Vol A4C A-L 36.59 mL LA Vol A2C A-L 53.97 mL LA Vol Biplane A-L 46.7 mL LA Vol/BSA A4C A-L LA Vol/BSA A2C A-L LA Vol/BSA BP A-L 24.8 mL/m2 LA Vol A4C MOD 34.0 mL LA Vol A2C MOD 49.8 mL LA Vol BP MOD 43.2 mL RA Volume RA Area A4C 10.8 cm2 RA ESV A4C (A-L) 23.2mL RA Vol/BSA A4C A-L RA Length A4C 4.2 cm RA ESV A4C (MOD) 22.5mL LV Diastology MV E' medial 0.077 (>0.07 m/s) MV E Vmax 1.08 (0.4-1.3 m/s) MV E/E' MED 14.11 (<14) MV A Vmax 1.10 (0.4-1.3 m/s) MV E' lateral 0.097 (>0.1 m/s) E/A Ratio 1.0 MV E/E' LAT 11.13 (<14) MV E' Average 0.087 m/s MV E/E'(average) 12.45 Aortic Valve AoV Vmax 2.18 m/s LVOT Vmax 1.08 m/s AoV Peak Grad 19.0 mmHg LVOT Peak Grad 4.7 mmHg AoV Area (Vmax) 1.58 cm2 LVOT VTI 0.245 m AoV VTI 0.527 m LVOT Mean Grad 2.6 mmHg AoV Mean Chilo. 1.56 m/s LVOT SV 78.01 mL AoV Mean Grad 11.0 mmHg LVOT Diam s 2.00 cm AoV Area (VTI) 1.48 cm2 Velocity Ratio 0.50 Mitral Valve MV DT 175 (160-240 msec) MV Vmax TIPS 1.03 m/s MV Mean Grad 1.4 (<2mmHg) MV VTI 0.297 m Pulmonary Valve PV Vmax 1.15 (0.5-1.5 m/s) RVOT Vmax 0.62 m/s PV Peak Grad 5.3 mmHg RVOT Peak Gr. 1.6 mmHg PV Mean Chilo 0.79 m/s RVOT VTI 0.152 m PV Mean Grad 2.8 mmHg RVOT Mean Gr. 0.9 mmHg Tricuspid Valve RA Pressure 3.00 mmHg TR Vmax 2.47 m/s TV S' 0.12 m/s TR Peak Grad 24.4 mmHg RVSP (TR) 27.5 mmHg
== END ==
PROVIDERS: PCP Nurse Practitioner Family; Visit Provider Nurse Practitioner Family
DX: R01.1 Cardiac murmur, unspecified (principal)
CPT/HCPCS: 93306

== ENCOUNTER → 2024-01-25 12:26 | Outpatient (BNVA) | payer MEDICARE, SELFPAY | PROVIDERS: PCP Nurse Practitioner Family; Referring Provider Nurse Practitioner Family; Visit Provider Nurse Practitioner Adult Health | DX: G31.84 Mild cognitive impairment of uncertain or unknown etiology (principal) | CPT/HCPCS: 99213 ==

== ENCOUNTER 2024-02-03 00:23 | Outpatient (CLI) | payer MEDICARE, SELFPAY ==
--- NOTE | 2024-02-03 | DI.RAD_ITS ---
Exam(s) XR LUMBAR SPINE COMP W FLEX/EX EXAM: XR LUMBAR SPINE COMP W FLEX/EX CLINICAL HISTORY: FACET ARTHROPATHY,SPONDYLOSIS, M47.816. TECHNIQUE: 2D digital imaging was performed. COMPARISON: CT CT ABDOMEN PELVIS W from 07/21/2023 FINDINGS: Six views There is scoliosis convex right with epicenter at L2-3 level where there is asymmetric narrowing of t he left side of the disc space. There is also advanced disc space narrowing at L5-S1 with vacuum phe nomenon. Lesser narrowing of the other disc spaces. Bone density normal. No osseous lesions. Ther e is facet arthropathy at the lower 2 levels. Sacroiliac joints appear unremarkable.. Bilateral nephrolithiasis noted, as also seen on prior CT scan 07/21/2023. IMPRESSION: As above. DATA REPOSITORY: RADIATION DOSE DELIVERED:
== END 2024-02-03 00:43 ==
LOC: DI 00:24
PROVIDERS: PCP Nurse Practitioner Family; Visit Provider Neurological Surgery
DX: M47.816 Spondylosis without myelopathy or radiculopathy, lumbar region (principal)
CPT/HCPCS: 72114

== ENCOUNTER 2024-02-03 13:24 | Outpatient (CLI) | payer MEDICARE, SELFPAY ==
[2024-02-03 14:10] LABS: Calculated LDL 110 mg/dL (<100); Cholesterol 196 mg/dL (<200); HDL Cholesterol 71 mg/dL (40-60); Triglyceride 77 mg/dL (<150)
== END 2024-02-03 13:25 | disposition home or self-care (01) ==
LOC: LBO 13:24
PROVIDERS: PCP Nurse Practitioner Family; Visit Provider Nurse Practitioner Family
DX: Z13.6 Encounter for screening for cardiovascular disorders (principal)
CPT/HCPCS: 36415; 72114; 80061

== ENCOUNTER 2024-02-08 12:43 | Outpatient (REF) | payer MEDICARE, SELFPAY | END 2024-02-08 12:44 | disposition home or self-care (01) | LOC: LBN 12:43 | PROVIDERS: PCP Nurse Practitioner Family; Visit Provider Nurse Practitioner Family | DX: N39.0 Urinary tract infection, site not specified (principal) | CPT/HCPCS: 87086 ==

== ENCOUNTER 2024-02-10 01:40 | Outpatient (CLI) | payer MEDICARE, SELFPAY ==
[2024-02-10 13:28] LABS: Hemoglobin A1C 5.5 % (<5.7)
== END 2024-02-10 01:41 | disposition home or self-care (01) ==
LOC: LOS 01:40
PROVIDERS: PCP Nurse Practitioner Family; Visit Provider Nurse Practitioner Family
DX: E11.9 Type 2 diabetes mellitus without complications (principal); Z13.1 Encounter for screening for diabetes mellitus; Z12.39 Encounter for other screening for malignant neoplasm of breast; N39.0 Urinary tract infection, site not specified; L98.9 Disorder of the skin and subcutaneous tissue, unspecified; F32.9 Major depressive disorder, single episode, unspecified; E78.5 Hyperlipidemia, unspecified; M54.42 Lumbago with sciatica, left side
CPT/HCPCS: 36415; 83036

== ENCOUNTER 2024-02-22 01:26 | Outpatient (CLI) | payer MEDICARE, SELFPAY ==
--- NOTE | 2024-02-22 07:30 | DI.MAMMO_ITS ---
Exam(s) MAMMO SCREENING EXAM: MAMMO SCREENING CLINICAL HISTORY: screening,z12.39. TECHNIQUE: Bilateral full field digital CC and MLO mammographic images were obtained with 3D tomosyn thesis and utilizing computer aided detection (CAD). COMPARISON: Prior mammograms were reviewed. FINDINGS: There has been no significant change in the appearance and distribution of the fibroglandular tissue. Benign-appearing nodular density in the right breast located 10 cm in from the nipple on the CC view is unchanged from prior mammograms. Benign-appearing calcified oil cysts in the anterior right breas t are also again noted. There are no new spiculated masses nor malignant appearing microcalcification groups. There is no significant architectural distortion nor skin thickening-retraction. IMPRESSION: Stable benign findings. No radiographic evidence of malignancy. BI-RADS Category 2 - Benign Findings Breast Density - Category B - Scattered areas of fibroglandular density Breast density Category C or D implies that the patient has dense breast tissue. Dense breast tissue can make it harder to find cancer on a mammogram. Dense breast tissue is also associated with an incr eased risk of breast cancer. This information about the result of the mammogram report was provided to the patient to raise their awareness. Use this report when you speak with the patient about their risks for breast cancer, which includes their family history. At that time, you may recommend additional screening tests (Ultrasoun d or MRI) as these tests may add significant information. A negative radiographic report should not delay biopsy if a dominant or clinically suspicious mass is present. Up to ten percent of cancers are not identified on mammography. A negative report may reinforce clinical impression. Adenosis and dense breasts may obscure an underlying neoplasm. False positive reports average 6 to 10%. Patient will receive a letter notifying them of these results.
== END 2024-02-22 01:46 ==
LOC: DI 01:26
PROVIDERS: PCP Nurse Practitioner Family; Visit Provider Nurse Practitioner Family
DX: Z12.31 Encounter for screening mammogram for malignant neoplasm of breast (principal)
CPT/HCPCS: 77063; 77067

== ENCOUNTER 2024-03-22 02:11 | Outpatient (CLI) | payer MEDICARE, SELFPAY ==
--- NOTE | 2024-03-22 | DI.MRI_ITS ---
Exam(s) MR LUMBAR SPINE WO EXAM: MR LUMBAR SPINE WO CLINICAL HISTORY: L BACK PAIN, M54.50. TECHNIQUE: Multiplanar multisequence MRI of the Lumbar spine was performed. COMPARISON: MR MR LUMBAR SPINE WO from 08/03/2023 CR XR LUMBAR SPINE COMP W FLEX/EX from 02/03/2024 FINDINGS: Conus medullaris is at normal level. There is no evidence of conus mass nor subjacent clumping of in trathecal nerve roots to suggest arachnoiditis. The distal thecal sac appears unremarkable.There is no evidence of Tarlov intrasacral cysts nor other significant findings within the sacral canal Again noted is scoliosis in the lumbar spine convex right. Bones:There are no fractures nor ominous osseous lesions in the lumbar vertebral bodies and visualize d sacrum. There are Modic type 1 sub endplate marrow edema changes on the left side of the L2-3 disc space. This has significantly increased when compared to prior MRI scan of 08/03/2023. This is rel ated to significant asymmetric narrowing of the left side of the disc space at this level and there a re also increasing size marginal left osteophytes at this level evident. With respect to the individual levels... T12-L1: Remains relatively unremarkable. L1-2: There is mild disc space narrowing at this level. Mild annular bulging without a dominant disc herniation. Central canal dimensions are lower normal. Some degenerative changes evident in the fa cet joints but no significant foraminal stenosis on the right side. Mild foraminal stenosis on the l eft side related to the scoliosis which starts at this level. L2-3: This level exhibits change from the prior study. There is normal disc height on the right side of this disc space again noted but significant narrowing of the lateral left side of the disc space is again noted with increased Modic type 1 subarticular marrow edema in both the L2 and L3 vertebral bodies on the left side. There are also lateral left osteophytes at this level which exhibit bone ed matt, more so than previous. There is annular bulging which appears unchanged on the right side and c entrally at this level. Central canal dimensions remain lower normal.There is no foraminal stenosis on the right side at this level. On the left side there is moderate foraminal stenosis due to the de creased height of the disc space laterally left, the osteophytes, as well as degenerative change in t he left more than right facet joints at this level. The annular bulging in the exiting left neural f oramen also contributes to the left-sided foraminal stenosis. However, there is also a new finding o n the left side at this level just medial to the inner aspect of the left facet joint, this measuring 1.2 cm AP by 0.7 cm wide. Although this may represent a new degenerative synovial cyst at this leve l, on the axial images it appears more to be with in the thecal sac, as opposed to compressing it fro m the lateral aspect. Therefore this may be related to a new finding at the level the cauda equina a t this level. This finding is most evident on the T2 axial images through this region and was not pr esent on the prior study of July 2023. This will require repeat imaging with contrast to possibl y add specificity. L3-4: This level also exhibits asymmetric disc height loss on the left side and small left-sided oste ophytes. There is broad annular bulging at this level which is more prominent central and left exten ding into the exiting left neural foramen and resulting in an element of moderate left-sided foramina l stenosis, slightly more so than previous. This is again noted be compounded by significant degener ative change in the left facet joint. There is moderate central canal stenosis at this level again n oted. There is again no significant foraminal stenosis on the opposite-right side due to the relativ stu preserved disc height on the right side at this level, this despite annular bulging into the exit ing right neural foramen again noted. L4-5: This level exhibits preserved uniform disc height with no asymmetric narrowing and no evidence of disc herniation nor significant central canal stenosis at this level. There are moderate degenera tive facet joint changes bilaterally. However, there is no foraminal stenosis on either side at this level. L5-S1: Again noted is chronic disc space height loss and Modic type 2 sub endplate fatty marrow joshi es, similar to previous. There is no significant disc herniation at this level. Central canal dimen sions remain normal. No foraminal stenosis on the left side. There is moderate foraminal stenosis o n the right side at this level again noted. The exiting right nerve root is compressed between the o verlying right L5 pedicle and subjacent annulus and posterior bony ridging. Moderate degenerative ch frank in the right facet joint is also again noted at to the right-sided foraminal stenosis. Soft tissues: There are again noted benign-appearing cysts in the right kidney. IMPRESSION: 1. Degenerative scoliosis with multilevel findings as described individual above. 2. Most significant change when compared to the MRI study of July 2023 is at the L2-3 level, as d escribed above. There is a new 12 x 7 mm signal abnormality just medial to the left facet joint whic h may be a new degenerative synovial cyst. However, it does not have the typical appearance of a syn ovial cyst and on the axial images has more the appearance of an intrathecal than an extra thecal les ion. Recommend additional MRI imaging with IV contrast with special attention to this L2-3 disc spac e level. This may add significant specificity with respect to this new finding at this level. DATA REPOSITORY:
== END 2024-03-22 02:31 ==
LOC: DI 02:11
PROVIDERS: PCP Nurse Practitioner Family; Visit Provider Neurological Surgery
DX: M41.26 Other idiopathic scoliosis, lumbar region (principal)
CPT/HCPCS: 72148

== ENCOUNTER 2024-04-04 11:45 | Outpatient (REF) | payer MEDICARE, SELFPAY ==
--- NOTE | 2024-04-04 10:28 | NASALBX_PTH ---
PATIENT: Luz Ayala LOC: [facility] U#:[id number] AGE/SX: 68/F ROOM: RE04/04/[address]: Papo Moreno MD : [id number] BED: DIS: 04/04/2024 SPEC #: [id number] RECD: 04/04/24 17:32 STATUS: DEBRA SARAH #: [id number] GABY: 04/04/24 10:[address]: Papo Moreno DEPT: Surgical Specimen RECD BY: Sandra Broussard ENTERED: 04/04/24 17:33 SP TYPE: NASALBX OTHR DR: Yeyo Tavares, SRINIVASA Tissues: 1 - MUCOSA, NOS Procedures: SKIN LEVEL 4 Comments: [id number]
== END 2024-04-04 11:46 | disposition home or self-care (01) ==
LOC: LBN 11:45
PROVIDERS: PCP Nurse Practitioner Family; Visit Provider Otolaryngology
DX: L98.9 Disorder of the skin and subcutaneous tissue, unspecified (principal); C44.311 Basal cell carcinoma of skin of nose
CPT/HCPCS: 88305

== ENCOUNTER 2024-07-16 01:21 | Outpatient (CLI) | payer MEDICARE, SELFPAY ==
--- NOTE | 2024-07-16 | DI.MRI_ITS ---
Exam(s) MR CERVICAL SPINE WO EXAM: MR CERVICAL SPINE WO CLINICAL HISTORY: CERVICALGIA M54.2 HEAD INJURY S09.8XXA CERVICAL TRAUMA TECHNIQUE: Multiplanar multisequence MRI of the cervical spine was performed without intravenous con trast. COMPARISON: There are no plain films of the cervical spine available the time of this MRI interpreta tion. FINDINGS: There is artifact from on the right side at C5-6 level. This difficult to evaluate without set of pl ain films. CERVICOMEDULLARY JUNCTION: Intact with no evidence of cerebellar tonsillar ectopia. No obvious abnor mality of the odontoid process. No evidence of Chiari 1 malformation. CERVICAL SPINAL CORD: There is no abnormal signal in the cervical spinal cord and no evidence of foca l cord atrophy nor focal cord swelling. OSSEOUS:There are no cervical fractures evident. No significant osseous lesions in the cervical vert ebrae. There is a benign intraosseous hemangioma in the superior aspect of L1 vertebral body. Cervi shira curvature is maintained. INDIVIDUAL LEVELS: C2-3: Normal disc height. No disc herniation or central canal stenosis evident. Left facet joint un remarkable and there is no foraminal stenosis on the left side. Moderate degenerative change noted i n the right facet joint. Mild right-sided foraminal stenosis. C3-4: Normal disc height. No significant disc herniation or central canal stenosis. Moderate degene rative change in the right facet joint. Mild right-sided foraminal stenosis.Moderate degenerative ch anges in the left facet joint. There is no foraminal stenosis on the left side. C4-5: This level exhibits normal disc height. Posteriorly there is some mild annular bulging without a dominant disc herniation and central canal dimensions are within normal limits. There are signifi cant degenerative changes in both facet joints at this level evident. Mild foraminal stenosis on the left side. Minimal foraminal stenosis on the right side. No Luschka joint osteophytes. C5-6: This level exhibits relatively preserved disc height. There is no disc herniation or central c anal stenosis evident. There are significant degenerative changes in both facet joints at this level . There is moderate-severe foraminal stenosis on the right side. There is minimal foraminal stenosi s on the opposite-left side. C6-7: Normal disc height. No disc herniation nor central canal stenosis. There is significant degen erative change in the right facet joint at this level. There is mild right-sided foraminal stenosis. Lesser degenerative changes seen in the left facet joint at this level. There is no left-sided for aminal stenosis. C7-T1: No disc herniation nor central canal stenosis. Moderate facet arthropathy on the right side an d minimal facet arthropathy on the left side. There is no significant foraminal stenosis on either s margret at this level.No foraminal stenosis. IMPRESSION: 1. There is relatively preserved disc height at each level in the cervical spine in this 69-year-old patient and there is no evidence of significant focal disc herniation or central canal stenosis. 2. There is, however, asymmetric facet arthropathy as described individually above and the most signi ficant focal finding appears to be moderate-severe right-sided foraminal stenosis at C5-6 level. 3. There are no Luschka joint osteophytes evident at any level in the cervical spine. Cervical spina l curvature is maintained. DATA REPOSITORY:
== END 2024-07-16 01:41 ==
PROVIDERS: PCP Nurse Practitioner Family; Visit Provider Neurological Surgery
DX: S09.8XXD Other specified injuries of head, subsequent encounter (principal); X58.XXXD Exposure to other specified factors, subsequent encounter; M54.2 Cervicalgia
CPT/HCPCS: 72141

== ENCOUNTER → 2024-07-24 13:01 | Outpatient (BNVA) | payer MEDICARE, SELFPAY | PROVIDERS: PCP Nurse Practitioner Family; Visit Provider Nurse Practitioner Adult Health | DX: G31.84 Mild cognitive impairment of uncertain or unknown etiology (principal); G20.C Parkinsonism, unspecified; R51.9 Headache, unspecified | CPT/HCPCS: 99214 ==

== ENCOUNTER → 2025-01-24 14:33 | Outpatient (BNVA) | payer MEDICARE, SELFPAY | PROVIDERS: PCP Nurse Practitioner Family; Referring Provider Nurse Practitioner Family; Visit Provider Nurse Practitioner Adult Health | DX: G31.84 Mild cognitive impairment of uncertain or unknown etiology (principal); G20.C Parkinsonism, unspecified; R51.9 Headache, unspecified | CPT/HCPCS: 99213; 99214 ==

== ENCOUNTER → 2025-01-30 12:45 | Outpatient (BNVA) | payer MEDICARE, SELFPAY | PROVIDERS: PCP Nurse Practitioner Family; Referring Provider Nurse Practitioner Family; Visit Provider Psychiatry & Neurology Neurology | DX: G20.C Parkinsonism, unspecified (principal); G25.0 Essential tremor; G47.61 Periodic limb movement disorder | CPT/HCPCS: 99214 ==

== ENCOUNTER → 2025-03-07 08:41 | Outpatient (BNVA) | payer MEDICARE, SELFPAY | PROVIDERS: PCP Nurse Practitioner Family; Referring Provider Nurse Practitioner Family; Visit Provider Psychiatry & Neurology Neurology | DX: G20.C Parkinsonism, unspecified (principal); G25.0 Essential tremor; G47.61 Periodic limb movement disorder | CPT/HCPCS: 99214 ==

== ENCOUNTER 2025-03-25 03:26 | Outpatient (CLI) | payer MEDICARE, SELFPAY ==
--- NOTE | 2025-03-25 12:59 | DI.MAMMO_ITS ---
Exam(s) MAMMO SCREENING EXAM: MAMMO SCREENING CLINICAL HISTORY: screening,z12.39. TECHNIQUE: Bilateral full field digital CC and MLO mammographic images were obtained with 3D tomosynthesis and utilizing computer aided detection (CAD). COMPARISON: Prior mammograms were reviewed. FINDINGS: No new left breast findings. Previously described small benign-appearing nodule 10 cm in from the nipple in the right breast remains unchanged from prior mammograms. There are no new spiculated masses nor new malignant appearing microcalcification groups. There is no significant architectural distortion nor skin thickening-retraction. IMPRESSION: Stable benign findings. No radiographic evidence of malignancy. BI-RADS Category 2 - Benign Findings Breast Density - Category B - There are scattered areas of fibroglandular density. Breast density Category C or D implies that the patient has dense breast tissue. Dense breast tissue can make it harder to find cancer on a mammogram. Dense breast tissue is also associated with an increased risk of breast cancer. This information about the result of the mammogram report was provided to the patient to raise their awareness. Use this report when you speak with the patient about their risks for breast cancer, which includes their family history. At that time, you may recommend additional screening tests (Ultrasound or MRI) as these tests may add significant information. A negative radiographic report should not delay biopsy if a dominant or clinically suspicious mass is present. Up to ten percent of cancers are not identified on mammography. A negative report may reinforce clinical impression. Adenosis and dense breasts may obscure an underlying neoplasm. False positive reports average 6 to 10%. Patient will receive a letter notifying them of these results.
== END 2025-03-25 03:46 ==
LOC: DI 03:26
PROVIDERS: PCP Nurse Practitioner Family; Visit Provider Nurse Practitioner Family
DX: Z12.31 Encounter for screening mammogram for malignant neoplasm of breast (principal)
CPT/HCPCS: 77063; 77067

== ENCOUNTER → 2025-04-22 14:44 | Outpatient (BNVA) | payer MEDICARE, SELFPAY | PROVIDERS: PCP Nurse Practitioner Family; Referring Provider Nurse Practitioner Family; Visit Provider Psychiatry & Neurology Neurology | DX: G20.C Parkinsonism, unspecified (principal); G25.0 Essential tremor; G47.61 Periodic limb movement disorder | CPT/HCPCS: 99214 ==

== ENCOUNTER → 2025-06-13 14:45 | Outpatient (BNVA) | payer MEDICARE, SELFPAY | PROVIDERS: PCP Nurse Practitioner Family; Referring Provider Nurse Practitioner Family; Visit Provider Podiatrist | DX: L60.0 Ingrowing nail (principal); L60.3 Nail dystrophy; B35.1 Tinea unguium; M79.671 Pain in right foot; M79.672 Pain in left foot | CPT/HCPCS: 11730; 11755; 99213 ==